=== PATIENT | male | born 1930 | race Caucasian/White ===

== ENCOUNTER → 2016-09-08 | Outpatient (CLI) | payer OTHER ==
[~2016-09-08] MED LIST: ACET325T96 PO; ALEN70TA2 PO; ARTI99.0 OPB; ASPCH81X PO; ATOR-24 PO; CLOP1TAB15 PO; CYAN10005 PO; DOCU-94 PO; IMDSR/30 PO; MELA3TAB PO; METO25TA3 PO; MYCO500T4 PO; NIAC500T11 PO; NITR-5 PO; NTRGSL/4 UT; OMEP10CA4 PO; PRED10TA PO; PRLSR20 PO; SACC250C3 PO; SERT50TA PO; SNM/25100 PO; SULF800T23 PO
[2016-09-08 09:17] LABS: BASO % 0.4 %; BASO ABS # 0.03 K/uL (0-0.2); COMPLETE YES; EOS % 0.1 %; HEMATOCRIT 40.8 % (42-52); IG% 0.7 %; LYMPH % 19.9 %; LYMPH ABS # 1.66 K/uL (1.2-3.4); MEAN CELL VOLUME 93.4 fL (80-100); MEAN CORPUSCULAR HEMOGLOBIN 30.9 pg (25-34); MEAN CORPUSCULAR HGB CONC 33.1 g/dl (32-36); MEAN PLATELET VOLUME 9.3 fL (7.4-10.4); MONO % 4.8 %; NEUT % 74.1 %; PLATELET COUNT 220 K/uL (130-400); RED BLOOD COUNT 4.37 M/uL (4.7-6.1); WHITE BLOOD COUNT 8.33 K/uL (4.8-10.8)
[2016-09-08 09:52] LABS: BLOOD UREA NITROGEN 18 mg/dl (7-18); BUN/CREATININE RATIO 21.1 (10-20); CARBON DIOXIDE 34 mmol/L (21-32); CHLORIDE 106 mmol/L (98-107); CREATININE 0.83 mg/dl (0.60-1.40); GLUCOSE 81 mg/dl (70-99); POTASSIUM 3.9 mmol/L (3.5-5.1); SODIUM 143 mmol/L (136-145)
== END ==
LOC: C.LABOUTLO 08:26
PROVIDERS: ATTEND Internal Medicine
DX: I11.9 Hypertensive heart disease without heart failure (principal); N28.9 Disorder of kidney and ureter, unspecified

== ENCOUNTER 2016-10-02 17:43 | Emergency (ER) | payer OTHER, BC ==
[~2016-10-02] VITALS: Ht 170.2 cm; Wt 68.0 kg
[2016-10-02 17:54] VITALS: TEMP 36.7; Ht 170.2 cm; Wt 68.0 kg
--- NOTE | 2016-10-02 18:28 | EMERGENCY ROOM VISIT NOTE ---
History Report prepared by Shantal: [place] Laura Under the Supervision of: Dr. Adi Block M.D. First contact with patient: 18:13 Chief Complaint: FALL Stated Complaint: FALL, SKIN TEAR, HIT HEAD History of Present Illness The patient is a 86 year old male who presents to the Emergency Room with complaints of an episode of a fall beginning just TOW BAR [employer]. The patient states that he has a walker and was walking around a table when the leg of his walker caught and he tripped. He reports that he hit the back of his head when he fell. He complains of left arm pain and a rash that he notes he is being treated with antibiotics after he was seen at [place]. The patient complains of left arm pain. He denies any LOC, headache, changes in vision, neck pain, chest pain, SOB, abdominal pain, and numbness or weakness. 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 He denies any changes in vision. Review of Systems See HPI for pertinent positives & negatives. A total of 10 systems reviewed and were otherwise negative. Past Medical & Surgical Medical Problems: (1) Macular degeneration Old medical records were reviewed. Nurse's notes were reviewed and I agree with. Family History No pertinent family history stated. Social History Smoking Status: Never Smoker Housing Status: half-way Occupation Status: retired Current/Historical Medications Scheduled Alendronate Sodium (Fosamax), 70 MG PO WK Aspirin (Aspirin Chewable), 81 MG PO DAILY Atorvastatin (Lipitor), 40 MG PO HS Clopidogrel (Plavix), 75 MG PO DAILY Cyanocobalamin (Vitamin B-12), 1,000 MCG PO DAILY Isosorbide Mononitrate (Isosorbide Mononitrate ER), 30 MG PO DAILY Levodopa/Carbidopa (Sinemet 25MG/100MG), 1 TAB PO Q8 Melatonin (Melatonin), 6 MG PO HS Metoprolol Succinate (Toprol Xl), 25 MG PO DAILY Mycophenolate Mofetil (Cellcept), 1,000 MG PO BID Niacin (Niacin), 500 MG PO DAILY Nitroglycerin (Nitrostat), 0.4 MG UT PRN Omeprazole (Prilosec), 20 MG PO DAILY Prednisone Tab (Prednisone), 10 MG PO DAILY Sertraline (Zoloft), 50 MG PO DAILY Scheduled PRN Acetaminophen Tab (Tylenol), 650 MG PO Q4 PRN for Pain or Fever Allergies Coded Allergies: No Known Allergies (Unverified , 10/02/16) Physical Exam Vital Signs Date Time Temp Pulse Resp B/P Pulse Ox O2 Delivery O2 Flow Rate FiO2 10/02/16 21:22 62 18 136/69 94 10/02/16 17:54 36.7 78 18 141/77 96 Room Air Physical Exam General: Well developed well nourished non ill appearing older male in no acute distress, breathing comfortably on room air. Normal speech. Alert and oriented x3. HEENT: Small area of swelling to the left occipital area. Pupils are equal round and reactive to light. Extraocular movements are intact. Oropharynx is pink with moist mucous membranes. No swelling of the mouth lips or tongue. Neck: Supple with a midline trachea. No meningeal signs or stiffness, no JVD or bruits. No Stridor. Chest: Clear to auscultation bilaterally. No wheezes or rhonchi. No increased work of breathing. Heart: regular rate and rhythm. Abdomen: Soft nontender, nondistended without rebound guarding or rigidity. Extremities: No cyanosis clubbing or edema. No calf tenderness or assymetry Spine/Back. Non tender to palpation. No CVA tenderness Skin: Good turgor. Chronic rash. Neurologic exam: Cranial nerves two through 12 are intact. Motor and sensation are intact and symmetrical throughout. Codorus Coma score 15. Medical Decision & Procedures ER Provider Diagnostic Interpretation: CT results as stated below per my review and radiologist interpretation: HEAD CT NONCONTRAST Findings: The paranasal sinuses and mastoid air cells are clear. The calvarium and skull base are intact. The ventricles and sulci are within normal limits. There is no mass, hematoma, midline shift, or acute infarct. Impression: No acute intracranial abnormality. Electronically signed by: Fidel Yuen M.D. 10/02/2016 7:09 PM Dictated Date/Time: 10/02/2016 7:[address] FINDINGS: No fractures. No subluxation. Prevertebral soft tissues and the C1-C2 interval are intact. No pneumothorax. Considerable degenerative change throughout the entire cervical region IMPRESSION: No fractures within the cervical spine. Considerable degenerative change. Electronically signed by: Fidel Yuen M.D. 10/02/2016 7:19 PM Dictated Date/Time: 10/02/2016 7:17 PM ED Course 1812: Past medical records reviewed. The patient was evaluated in room B6, and a complete history and physical examination were performed. 1928: Upon reevaluation, the patient is doing well. I discussed the results and treatment plan with the patient. He verbalized agreement of the treatment plan. The patient was discharged home. Medical Decision Differential Diagnosis includes concussion, intracranial hemorrhage, skull fracture, cervical spine injury. This patient comes in as described above. He suffered a mechanical fall and hit his head he appears to be is normal baseline. He is alert or 3 and answers all questions appropriately. He has no other acute complaints this was a mechanical fall. There is no syncopal, chest pain or weakness beforehand . He has no significant symptoms at present. I did get a CAT scan of his head and neck. He is not on any blood thinners. He was reassessed frequently. CAT scan of his head and neck were unremarkable he has no further complaints feels good and would like to go home. He will be discharged home. He was encouraged to return if: Worsening of symptoms, , any new problems or concerns. He should follow-up with his doctor on Tuesday for recheck. Impression Primary Impression: Concussion Scribe Attestation The scribe's documentation has been prepared under my direction and personally reviewed by me in its entirety. I confirm that the note above accurately reflects all work, treatment, procedures, and medical decision making performed by me. Departure Information Dispostion Home / Self-Care Referrals [facility] (PCP) Forms HOME CARE DOCUMENTATION FORM, IMPORTANT VISIT INFORMATION Patient Instructions My [facility] Additional Instructions Rest. Drink plenty of fluids. Be careful getting up and down. Return if: Worsening of symptoms, not acting like self, increasing pain, numbness weakness, any new problems or concerns. Follow-up with your doctor on Tuesday for recheck
--- NOTE | 2016-10-02 19:10 | DIAGNOSTIC IMAGING REPORT ---
HEAD CT NONCONTRAST CT DOSE: HISTORY: Trauma eval for trauma TECHNIQUE: Multiaxial CT images of the head were performed without the use of intravenous contrast. Comparison: None. Findings: The paranasal sinuses and mastoid air cells are clear. The calvarium and skull base are intact. The ventricles and sulci are within normal limits. There is no mass, hematoma, midline shift, or acute infarct. Impression: No acute intracranial abnormality. Electronically signed by: Fidel Yuen M.D. 10/02/2016 7:09 PM Dictated Date/Time: 10/02/2016 7:08 PM
[2016-10-02] MEDS ORDERED: OMEP10CA4 PO (19:15)
[2016-10-02] MEDS ORDERED: ATOR-24 PO (19:15)
[2016-10-02] MEDS ORDERED: CYAN10005 PO (19:15)
[2016-10-02] MEDS ORDERED: ASPCH81X PO (19:15)
[2016-10-02] MEDS ORDERED: MYCO500T4 PO (19:15)
[2016-10-02] MEDS ORDERED: ACET325T96 PO (19:15)
[2016-10-02] MEDS ORDERED: METO25TA3 PO (19:15)
[2016-10-02] MEDS ORDERED: MELA3TAB PO (19:15)
[2016-10-02] MEDS ORDERED: IMDSR/30 PO (19:15)
[2016-10-02] MEDS ORDERED: NTRGSL/4 UT (19:15)
[2016-10-02] MEDS ORDERED: ALEN70TA2 PO (19:15)
[2016-10-02] MEDS ORDERED: NIAC500T11 PO (19:15)
[2016-10-02] MEDS ORDERED: CLOP1TAB15 PO (19:15)
[2016-10-02] MEDS ORDERED: SNM/25100 PO (19:15)
[2016-10-02] MEDS ORDERED: SERT50TA PO (19:19)
[2016-10-02] MEDS ORDERED: PRED10TA PO (19:19)
[2016-10-02] MEDS ORDERED: PRLSR20 PO (19:19)
--- NOTE | 2016-10-02 19:20 | DIAGNOSTIC IMAGING REPORT ---
CERVICAL SPINE CT CT DOSE: 2252.00 mGy.cm HISTORY: Trauma eval for trauma TECHNIQUE: Multiaxial CT images of the cervical spine were performed and reformatted in the sagittal and coronal plane without the use of contrast. COMPARISON: None. FINDINGS: No fractures. No subluxation. Prevertebral soft tissues and the C1-C2 interval are intact. No pneumothorax. Considerable degenerative change throughout the entire cervical region IMPRESSION: No fractures within the cervical spine. Considerable degenerative change. Electronically signed by: Fidel Yuen M.D. 10/02/2016 7:19 PM Dictated Date/Time: 10/02/2016 7:17 PM
[2016-10-02 21:22] VITALS: BP 136/69; PULSE 62; O2SAT 94
[2016-10-26] MEDS ORDERED: NITR-5 PO (23:53)
[2016-10-26] MEDS ORDERED: SULF800T23 PO (23:56)
== END 2016-10-02 21:23 | disposition home or self-care (01) ==
LOC: EDBD 17:43 → C.EDB 17:46
DX: S06.0X0A Concussion without loss of consciousness, initial encounter (principal); W18.09XA Striking against other object with subsequent fall, initial encounter; H35.30 Unspecified macular degeneration; Z79.82 Long term (current) use of aspirin; Z79.01 Long term (current) use of anticoagulants; Z79.899 Other long term (current) drug therapy

== ENCOUNTER 2016-10-03 02:17 | Emergency (ER) | payer OTHER, BC ==
[~2016-10-03] VITALS: Ht 170.2 cm; Wt 79.4 kg
[~2016-10-03 02:17] MED LIST changes: -ARTI99.0 OPB; -DOCU-94 PO; -NITR-5 PO; -OMEP10CA4 PO; -SACC250C3 PO; -SULF800T23 PO
[2016-10-03 02:26] VITALS: TEMP 37.2; Ht 170.2 cm; Wt 79.4 kg
--- NOTE | 2016-10-03 03:24 | EMERGENCY ROOM VISIT NOTE ---
History Report prepared by Shantal: Lynnette Coburn Under the Supervision of: Dr. Regina Davison D.O. First contact with patient: 02:47 Chief Complaint: FALL Stated Complaint: FALL History of Present Illness The patient is an 86 year old male who presents to the Emergency Room with complaints of a sudden fall that occurred just prior to arrival. The patient notes that he fell from standing, injuring his elbows. He denies any loss of consciousness or hitting his head. Per nursing notes, the patient was discharged from the emergency department four hours prior to arrival. Nursing notes report that the patient was discharged back to [facility]'s Dementia Unit. The history is limited secondary to the patient's history of dementia. Source of History: patient, nursing staff History Limited By: dementia Onset: just prior to arrival Position: other (global) Quality: other (fall) Timing: other (sudden) Associated Symptoms: No LOC Review of Systems The history and ROS are limited secondary to dementia. Past Medical & Surgical Medical Problems: (1) Macular degeneration Family History Noncontributory secondary to age Social History Smoking Status: Never Smoker Marital Status: single Housing Status: [facility] Occupation Status: retired Current/Historical Medications Scheduled Alendronate Sodium (Fosamax), 70 MG PO WK Aspirin (Aspirin Chewable), 81 MG PO DAILY Atorvastatin (Lipitor), 40 MG PO HS Clopidogrel (Plavix), 75 MG PO DAILY Cyanocobalamin (Vitamin B-12), 1,000 MCG PO DAILY Isosorbide Mononitrate (Isosorbide Mononitrate ER), 30 MG PO DAILY Levodopa/Carbidopa (Sinemet 25MG/100MG), 1 TAB PO Q8 Melatonin (Melatonin), 6 MG PO HS Metoprolol Succinate (Toprol Xl), 25 MG PO DAILY Mycophenolate Mofetil (Cellcept), 1,000 MG PO BID Niacin (Niacin), 500 MG PO DAILY Nitroglycerin (Nitrostat), 0.4 MG UT PRN Omeprazole (Prilosec), 20 MG PO DAILY Prednisone Tab (Prednisone), 10 MG PO DAILY Sertraline (Zoloft), 50 MG PO DAILY Scheduled PRN Acetaminophen Tab (Tylenol), 650 MG PO Q4 PRN for Pain or Fever Allergies Coded Allergies: No Known Allergies (Unverified , 10/03/16) Physical Exam Vital Signs Date Time Temp Pulse Resp B/P Pulse Ox O2 Delivery O2 Flow Rate FiO2 10/03/16 03:45 79 19 141/70 95 Room Air 10/03/16 02:26 37.2 78 19 137/79 93 Room Air Physical Exam HEENT: Head - hematoma on left occiput. Pupils are equal, round, and reactive to light. Extraocular eye muscles are intact, and sclera are anicteric. Nose - moist nasal mucosa without discharge. Mouth - moist buccal mucosa. Oropharynx is nonerythematous and there is no tonsillar exudate or edema noted. Neck: Supple; no JVD, nuchal rigidity, cervical lymphadenopath. Heart: Regular rate and rhythm. There is a normal S1 and S2 with no murmurs, clicks, or gallops appreciated. Lungs: Clear to auscultation bilaterally with no wheezes, rales, or rhonchi. Abdomen: Soft, completely nontender, nondistended, with good bowel sounds. There are no palpable pulsatile masses or hepatosplenomegaly. There is no guarding, rigidity, or rebound noted. Extremities: No evidence of cyanosis, clubbing, or edema. There are easily palpable peripheral pulses. Skin: 2 skin tears on left elbow that are old, new skin tears to the left ventral forearm and right elbow. Abrasions to the knees. warm and dry with good turgor and no rashes. Medical Decision & Procedures ED Course 0318: Past medical records reviewed. The patient was evaluated in room A11B. A complete history and physical exam was performed. I discussed all the exam findings with him and I discussed the treatment plan. He verbalized complete understanding and agreement. He is ready to be transferred back to [facility]. Medical Decision The patient is an 86 year old male who presents to the ED with a sudden fall. Differential diagnosis includes extremity trauma, new head injury, medication overdose. The patient believes that some of his medications may be causing him to be increasingly weak and the reason for his falls. The patient was seen here couple of hours ago after a fall where he struck his head. CT scan of the brain and cervical spine was negative at that time. The patient had another fall just prior to coming in this time. He did have some new skin tears noted on his elbows and abrasion on his right knee. The patient has no other complaints of be discharged back. There is specific instructions for fall prevention. They will also need to reevaluate his medications. Impression Primary Impression: Fall from standing Scribe Attestation The scribe's documentation has been prepared under my direction and personally reviewed by me in its entirety. I confirm that the note above accurately reflects all work, treatment, procedures, and medical decision making performed by me. Departure Information Dispostion Home / Self-Care Referrals [facility] (PCP) Forms HOME CARE DOCUMENTATION FORM, IMPORTANT VISIT INFORMATION Patient Instructions My [facility] Additional Instructions Watch the patient closely to prevent falls. Keep wounds on the elbows and knees clean with soap and water. Cover with antibiotic ointment Problem Qualifiers Primary Impression: Fall from standing Encounter type: subsequent encounter Qualified Codes: W19.XXXD - Unspecified fall, subsequent encounter
[2016-10-03 03:45] VITALS: BP 141/70; PULSE 79; O2SAT 95
[2016-10-26] MEDS ORDERED: NITR-5 PO (23:53)
[2016-10-26] MEDS ORDERED: SULF800T23 PO (23:56)
== END 2016-10-03 04:30 | disposition home or self-care (01) ==
LOC: C.EDA 02:17 → EDBD 02:17 → C.EDA 04:30
DX: S51.011A Laceration without foreign body of right elbow, initial encounter (principal); S80.211A Abrasion, right knee, initial encounter; S80.212A Abrasion, left knee, initial encounter; W19.XXXA Unspecified fall, initial encounter; Y92.129 Unspecified place in nursing home as the place of occurrence of the external cause; F03.90 Unspecified dementia, unspecified severity, without behavioral disturbance, psychotic disturbance, mood disturbance, and anxiety; H35.30 Unspecified macular degeneration; Z79.82 Long term (current) use of aspirin; Z79.899 Other long term (current) drug therapy; Z79.01 Long term (current) use of anticoagulants

== ENCOUNTER → 2016-10-04 | Outpatient (CLI) | payer OTHER, BC ==
[~2016-10-04] MED LIST changes: +ARTI99.0 OPB; +DOCU-94 PO; +NITR-5 PO; +SACC250C3 PO; +SULF800T23 PO
[2016-10-04 18:48] LABS: URINE APPEARANCE CLEAR (CLEAR); URINE COLOR DK YELLOW; URINE NITRITE NEG (NEG); URINE SPECIFIC GRAVITY 1.033 (1.000-1.030); UROBILINOGEN NEG (NEG)
[2016-10-04 18:58] LABS: MANUAL MICROSCOPIC REQUIRED? NO; REVIEW REQ? NO; URINE BILIRUBIN NEG (NEG)
== END | disposition home or self-care (01) ==
LOC: C.LABOUTLO 17:07
PROVIDERS: ATTEND Internal Medicine
DX: Z01.89 Encounter for other specified special examinations (principal)

== ENCOUNTER 2016-10-08 17:37 | Inpatient (IN) | payer OTHER, BC ==
[~2016-10-08] VITALS: Ht 170.2 cm; Wt 81.5 kg
[~2016-10-08 17:37] MED LIST changes: -ARTI99.0 OPB; -DOCU-94 PO; -NITR-5 PO; -SACC250C3 PO; -SULF800T23 PO
--- NOTE | 2016-10-08 17:47 | EMERGENCY ROOM VISIT NOTE ---
History Report prepared by Shantal: [place] Laura Under the Supervision of: Dr. Ildefonso White M.D. First contact with patient: 17:38 Stated Complaint: FALL, LOWER BACK PAIN History of Present Illness The patient is a 86 year old male who presents to the Emergency Room with complaints of constant lower back pain beginning this morning. The patient states that he fell 2 times today before coming in to the ED. He reports that when he fell today he did hit his head and his falls worsened his lower back pain. The patient complains of multiple falls and abrasions. He denies any abdominal pain and headache. Source of History: patient Onset: this morning Position: back (lower) Timing: constant Modifying Factors (Worsening): other (falls) Associated Symptoms: No abdominal pain, No headache Note: The patient complains of multiple falls and abrasions. Review of Systems See HPI for pertinent positives & negatives. A total of 10 systems reviewed and were otherwise negative. Past Medical & Surgical Medical Problems: (1) Macular degeneration Family History Noncontributory secondary to age Social History Smoking Status: Never Smoker Marital Status: single Housing Status: longterm Occupation Status: retired Current/Historical Medications Scheduled Alendronate Sodium (Fosamax), 70 MG PO WK Aspirin (Aspirin Chewable), 81 MG PO QAM Atorvastatin (Lipitor), 40 MG PO HS Clopidogrel (Plavix), 75 MG PO QAM Cyanocobalamin (Vitamin B-12), 1,000 MCG PO QAM Isosorbide Mononitrate (Isosorbide Mononitrate ER), 30 MG PO QAM Levodopa/Carbidopa (Sinemet 25MG/100MG), 1 TAB PO Q8 Melatonin (Melatonin), 6 MG PO HS Metoprolol Succinate (Toprol Xl), 25 MG PO QAM Mycophenolate Mofetil (Cellcept), 1,000 MG PO BID Niacin (Niacin), 500 MG PO QAM Nitroglycerin (Nitrostat), 0.4 MG UT PRN Omeprazole (Prilosec), 20 MG PO QAM Prednisone Tab (Prednisone), 10 MG PO QAM Sertraline (Zoloft), 50 MG PO QAM Scheduled PRN Acetaminophen Tab (Tylenol), 650 MG PO Q4 PRN for Pain or Fever Artificial Tear Solution (Natural Balance Tears 70.01-0.3 %), 1 DROP OPB QID PRN for DRYNESS Allergies Coded Allergies: No Known Allergies (Unverified , 10/08/16) Physical Exam Vital Signs Date Time Temp Pulse Resp B/P Pulse Ox O2 Delivery O2 Flow Rate FiO2 10/08/16 20:59 74 20 112/60 97 Room Air 10/08/16 18:51 94 Room Air 10/08/16 18:49 70 20 138/72 84 142/87 10/08/16 17:41 36.7 72 20 139/78 95 Room Air Physical Exam GENERAL: Patient is a healthy-appearing well-nourished HEAD: Normocephalic atraumatic EYES: Ocular movements intact pupils equal and react to light OROPHARYNX mucous membranes are moist no exudates present no erythema or edema present NECK: Supple no nuchal rigidity CHEST: Good equal expansion LUNGS: Clear and equal to auscultation CARDIAC: Normal S1 and S2 ABDOMEN: Soft nontender no guarding BACK: No CVA tenderness EXTREMITIES: No pain upon palpation normal muscle strength in all groups no clubbing cyanosis or edema. Patient has multiple bruises to his bilateral legs, good ROM to right and left legs at the hips, knees, and ankles and is free from pain. NEURO: Patient is following commands is answering questions appropriately. Alert and oriented x3 Cranial Nerves 2-12 grossly intact Medical Decision & Procedures ER Provider Diagnostic Interpretation: Radiology results as stated below per my review and radiologist interpretation: CERVICAL SPINE CT FINDINGS: No fractures. Prevertebral soft tissues and the C1-C2 interval are intact. No pneumothorax. Advanced degenerative changes are again noted. IMPRESSION: No fractures within the cervical spine. Electronically signed by: Pedro Luis Merrill M.D. 10/08/2016 6:40 PM Dictated Date/Time: 10/08/2016 6:[address] NONCONTRAST Findings: The paranasal sinuses and mastoid air cells are clear. The calvarium and skull base are intact. There is no mass, hematoma, midline shift, acute infarct. White matter hypodensity is nonspecific but suggestive of microvascular ischemic change. The ventricles and sulci demonstrate mild age-related involutional changes. Impression: No significant change compared to the prior study. No acute intracranial abnormality. Electronically signed by: Pedro Luis Merrill M.D. 10/08/2016 6:37 PM Dictated Date/Time: 10/08/2016 6:[address] FINDINGS: No subluxation. Mild levoscoliosis. Mild to moderate disc space are at L4-L5. Endplate osteophytes seen throughout the majority of the lumbar spine. Moderate to severe facet degenerative changes within the lower lumbar spine. Age-indeterminate fracture through the left anterior L4-L5 osteophytes. There is mild paravertebral soft tissue swelling at this location. There is also gas at the expected fracture site. Vertebral body heights are maintained. IMPRESSION: 1. Age-indeterminate fracture at the left anterior L4-5 osteophytes. No fractures within the vertebral bodies or posterior elements. 2. Degenerative changes within the lower lumbar spine. Electronically signed by: Pedro Luis Merrill M.D. 10/08/2016 6:46 PM Dictated Date/Time: 10/08/2016 6:[address] FINDINGS: There is oblique fracture involving the anterior two thirds of the T7 vertebral body. This extends to the inferior endplate but does not extend to the posterior cortex. No retropulsion. The posterior elements appear intact. The alignment is maintained. There is mild to moderate disc space narrowing throughout the thoracic spine. There is flowing anterior osteophytes throughout the majority of the thoracic spine. The T7 fracture extends through the fused anterior osteophytes. No additional fractures identified. No significant central canal narrowing by CT technique. Trace left pleural effusion. IMPRESSION: Nondisplaced oblique fracture within the anterior two thirds of the T7 vertebral body. No subluxation. No retropulsion. Electronically signed by: Pedro Luis Merrill M.D. 10/08/2016 7:00 PM Dictated Date/Time: 10/08/2016 6:54 PM CHEST 1 VW FRONT-NOT PORTABLE FINDINGS: There are low lung volumes. Bibasilar linear densities. Trace bilateral pleural effusions. The heart is borderline enlarged. Tortuous thoracic aorta. Poststernotomy changes. No pneumothorax. Old, healed upper left rib fractures. No acute rib fractures identified. Mild central pulmonary vascular congestion without overt edema. IMPRESSION: 1. Mild central pulmonary vascular congestion without overt edema. 2. Trace bilateral pleural effusions. 3. Bibasilar linear densities favor subsegmental atelectasis. Electronically signed by: Pedro Luis Merrill M.D. 10/08/2016 8:14 PM Dictated Date/Time: 10/08/2016 8:13 PM PELVIS 2 VIEWS FINDINGS: There is no fracture or dislocation. Surgical clips within the pelvis. Mild osteoarthritis within the bilateral hips and sacroiliac joints. The sacrum appears intact. The bones are osteopenic. There appears to be a large bowel containing right inguinal hernia. IMPRESSION: 1. No fracture or dislocation within the pelvis or hips. 2. There appears to be a large bowel containing right inguinal hernia. Clinical correlation recommended. Electronically signed by: Pedro Luis Merrill M.D. 10/08/2016 8:11 PM Dictated Date/Time: 10/08/2016 8:10 PM Laboratory Results 10/08/16 18:28 Red Blood Count 4.37, Mean Corpuscular Volume 95.0, Mean Corpuscular Hemoglobin 30.2, Mean Corpuscular Hemoglobin Concent 31.8, Mean Platelet Volume 9.2, Neutrophils (%) (Auto) 83.7, Lymphocytes (%) (Auto) 8.9, Monocytes (%) (Auto) 6.5, Eosinophils (%) (Auto) 0.1, Basophils (%) (Auto) 0.1, Neutrophils # (Auto) 6.04, Lymphocytes # (Auto) 0.64, Monocytes # (Auto) 0.47, Eosinophils # (Auto) 0.01, Basophils # (Auto) 0.01 10/08/16 18:28 Test 10/08/16 18:28 10/08/16 18:55 White Blood Count 7.22 K/uL (4.8-10.8) Red Blood Count 4.37 M/uL (4.7-6.1) Hemoglobin 13.2 g/dL (14.0-18.0) Hematocrit 41.5 % (42-52) Mean Corpuscular Volume 95.0 fL (80-100) Mean Corpuscular Hemoglobin 30.2 pg (25-34) Mean Corpuscular Hemoglobin Concent 31.8 g/dl (32-36) Platelet Count 184 K/uL (130-400) Mean Platelet Volume 9.2 fL (7.4-10.4) Neutrophils (%) (Auto) 83.7 % Lymphocytes (%) (Auto) 8.9 % Monocytes (%) (Auto) 6.5 % Eosinophils (%) (Auto) 0.1 % Basophils (%) (Auto) 0.1 % Neutrophils # (Auto) 6.04 K/uL (1.4-6.5) Lymphocytes # (Auto) 0.64 K/uL (1.2-3.4) Monocytes # (Auto) 0.47 K/uL (0.11-0.59) Eosinophils # (Auto) 0.01 K/uL (0-0.5) Basophils # (Auto) 0.01 K/uL (0-0.2) RDW Standard Deviation 54.8 fL (36.4-46.3) RDW Coefficient of Variation 15.8 % (11.5-14.5) Immature Granulocyte % (Auto) 0.7 % Immature Granulocyte # (Auto) 0.05 K/uL (0.00-0.02) Anion Gap 6.0 mmol/L (3-11) Est Creatinine Clear Calc Drug Dose 64.5 ml/min Estimated GFR () 91.9 Estimated GFR (Non- 79.3 BUN/Creatinine Ratio 18.7 (10-20) Bedside Glucose 100 mg/dl (70-99) Calcium Level 8.1 mg/dl (8.5-10.1) Total Bilirubin 0.9 mg/dl (0.2-1) Direct Bilirubin 0.3 mg/dl (0-0.2) Aspartate Amino Transf (AST/SGOT) 11 U/L (15-37) Alanine Aminotransferase (ALT/SGPT) 14 U/L (12-78) Alkaline Phosphatase 82 U/L (45-117) Total Creatine Kinase 64 U/L (39-308) Creatine Kinase MB 2.0 ng/ml (0.5-3.6) Creatine Kinase MB Ratio 3.1 (0-3.0) Troponin I 0.041 ng/ml (0-0.045) Total Protein 6.0 gm/dl (6.4-8.2) Albumin 3.4 gm/dl (3.4-5.0) Thyroid Stimulating Hormone (TSH) 1.750 uIu/ml (0.300-4.500) Urine Color YELLOW Urine Appearance CLEAR (CLEAR) Urine pH 7.0 (4.5-7.5) Urine Specific [place] 1.018 (1.000-1.030) Urine Protein NEG (NEG) Urine Glucose (UA) NEG (NEG) Urine Ketones 2+ (NEG) Urine Occult Blood TRACE (NEG) Urine Nitrite NEG (NEG) Urine Bilirubin NEG (NEG) Urine Urobilinogen NEG (NEG) Urine Leukocyte Esterase NEG (NEG) Urine WBC (Auto) 0 /hpf (0-5) Urine RBC (Auto) 5-10 /hpf (0-4) Urine Hyaline Casts (Auto) 1-5 /lpf (0-5) Urine Epithelial Cells (Auto) 5-10 /lpf (0-5) Urine Bacteria (Auto) NEG (NEG) Labs reviewed by ED physician. Medications Administered Medications (Trade) Dose Ordered Sig/Renny Route Start Time Stop Time Status Last Admin Dose Admin Sodium Chloride (Nss 500ml) 500 ml @ 999 mls/hr Q31M STAT IV 10/08/16 18:14 10/08/16 18:44 DC 10/08/16 18:46 999 MLS/HR ECG Indication: other (fall) Rate (beats per minute): 68 Rhythm: sinus rhythm Findings: 1st degree AV block, RBBB, no acute ischemic change, no ectopy ED Course 1739: Past medical records reviewed. The patient was evaluated in room C3. A complete history and physical examination was performed. 1813: Sodium Chloride 500 ml @ 999 mls/hr IV. 2041: I discussed the patient's case with Dr. Ghotra, she has agreed to evaluate the patient for further management and care. 2050: Upon reexamination the patient is doing well. I discussed results and treatment plan with the patient. He verbalizes agreement and understanding. I spoke with Dr. Ghotra from the [facility]. The patient will be evaluated for further management. Medical Decision Differential diagnosis: Etiologies such as metabolic, infection, hypo/hyperglycemia, electrolyte abnormalities, cardiac sources, intracerebral event, toxicologic, neurologic, as well as others were entertained. This is an 86-year-old male who presents emergency department complaining of multiple falls. The patient has been here 3 times in the past week for falls. Today he is complaining of back pain. The patient does have fractures in his lumbar and thoracic spine. He was given normal saline bolus here in emergency department. He does not have any evidence of urinary tract infection does not have an elevation in his white blood count cell count. Because of the multiple falls I did get case management involved and due to insurance limitations the patient should be admitted to the hospital. I did discuss the case with the hospitalist service who agreed to admit the patient. Patient family were in agreement with the treatment plan. Consults Time Called: 2036 Consulting Physician: Dr. Brandin Carlos Returned Call: 2041 I discussed the patient's case with Dr. Ghotra, she has agreed to evaluate the patient for further management and care. Impression Primary Impression: Fall Additional Impression: Back fracture Scribe Attestation The scribe's documentation has been prepared under my direction and personally reviewed by me in its entirety. I confirm that the note above accurately reflects all work, treatment, procedures, and medical decision making performed by me. Departure Information Dispostion Being Evaluated By Hospitalist Referrals [facility] (PCP) Problem Qualifiers Primary Impression: Fall Encounter type: initial encounter Qualified Codes: W19.XXXA - Unspecified fall, initial encounter Additional Impression: Back fracture Encounter type: initial encounter Fracture of vertebra location: thoracic Thoracic vertebra fracture level: unspecified thoracic vertebra Fracture type : closed Fracture morphology: other fracture Qualified Codes: S22.008A - Other fracture of unspecified thoracic vertebra, initial encounter for closed fracture
[2016-10-08] MEDS ORDERED: SODIUM CHLORIDE 0.9% 500ML 500 ML IV STA (18:14)
--- NOTE | 2016-10-08 18:38 | DIAGNOSTIC IMAGING REPORT ---
HEAD CT NONCONTRAST CT DOSE: HISTORY: Pt c/o multiple falls TECHNIQUE: Multiaxial CT images of the head were performed without the use of intravenous contrast. Automated exposure control was utilized for this study. Comparison: Head CT 10/02/2016. Findings: The paranasal sinuses and mastoid air cells are clear. The calvarium and skull base are intact. There is no mass, hematoma, midline shift, acute infarct. White matter hypodensity is nonspecific but suggestive of microvascular ischemic change. The ventricles and sulci demonstrate mild age-related involutional changes. Impression: No significant change compared to the prior study. No acute intracranial abnormality. Electronically signed by: Pedro Luis Merrill M.D. 10/08/2016 6:37 PM Dictated Date/Time: 10/08/2016 6:35 PM
--- NOTE | 2016-10-08 18:42 | DIAGNOSTIC IMAGING REPORT ---
CERVICAL SPINE CT CT DOSE: HISTORY: Neck pain. Pt c/o multiple falls TECHNIQUE: Multiaxial CT images of the cervical spine were performed and reformatted in the sagittal and coronal plane without the use of contrast. COMPARISON: Cervical spine CT 10/02/2016. FINDINGS: No fractures. Prevertebral soft tissues and the C1-C2 interval are intact. No pneumothorax. Advanced degenerative changes are again noted. IMPRESSION: No fractures within the cervical spine. Electronically signed by: Pedro Luis Merrill M.D. 10/08/2016 6:40 PM Dictated Date/Time: 10/08/2016 6:37 PM
[2016-10-08] MEDS ORDERED: ARTI99.0 OPB (18:46)
[2016-10-08 18:47] LABS: BASO % 0.1 %; BASO ABS # 0.01 K/uL (0-0.2); COMPLETE YES; EOS % 0.1 %; HEMATOCRIT 41.5 % (42-52); IG% 0.7 %; LYMPH % 8.9 %; LYMPH ABS # 0.64 K/uL (1.2-3.4); MEAN CORPUSCULAR HEMOGLOBIN 30.2 pg (25-34); MEAN CORPUSCULAR HGB CONC 31.8 g/dl (32-36); MEAN PLATELET VOLUME 9.2 fL (7.4-10.4); MONO % 6.5 %; NEUT % 83.7 %; PLATELET COUNT 184 K/uL (130-400); RED BLOOD COUNT 4.37 M/uL (4.7-6.1); WHITE BLOOD COUNT 7.22 K/uL (4.8-10.8)
--- NOTE | 2016-10-08 18:47 | DIAGNOSTIC IMAGING REPORT ---
LUMBAR SPINE CT CT DOSE: 3205.09 mGy.cm HISTORY: Low back pain. Pt c/o multiple falls TECHNIQUE: Multiaxial CT images of the lumbar spine were performed and reformatted in the sagittal and coronal plane without the use of contrast. COMPARISON: None. FINDINGS: No subluxation. Mild levoscoliosis. Mild to moderate disc space are at L4-L5. Endplate osteophytes seen throughout the majority of the lumbar spine. Moderate to severe facet degenerative changes within the lower lumbar spine. Age-indeterminate fracture through the left anterior L4-L5 osteophytes. There is mild paravertebral soft tissue swelling at this location. There is also gas at the expected fracture site. Vertebral body heights are maintained. IMPRESSION: 1. Age-indeterminate fracture at the left anterior L4-5 osteophytes. No fractures within the vertebral bodies or posterior elements. 2. Degenerative changes within the lower lumbar spine. Electronically signed by: Pedro Luis Merrill M.D. 10/08/2016 6:46 PM Dictated Date/Time: 10/08/2016 6:40 PM
--- NOTE | 2016-10-08 19:02 | DIAGNOSTIC IMAGING REPORT ---
THORACIC SPINE CT CT DOSE: HISTORY: Back pain. Pt c/o multiple falls TECHNIQUE: Multiaxial CT images of the thoracic spine were performed and reformatted in the sagittal and coronal plane without the use of contrast. COMPARISON: None. FINDINGS: There is oblique fracture involving the anterior two thirds of the T7 vertebral body. This extends to the inferior endplate but does not extend to the posterior cortex. No retropulsion. The posterior elements appear intact. The alignment is maintained. There is mild to moderate disc space narrowing throughout the thoracic spine. There is flowing anterior osteophytes throughout the majority of the thoracic spine. The T7 fracture extends through the fused anterior osteophytes. No additional fractures identified. No significant central canal narrowing by CT technique. Trace left pleural effusion. IMPRESSION: Nondisplaced oblique fracture within the anterior two thirds of the T7 vertebral body. No subluxation. No retropulsion. Electronically signed by: Pedro Luis Merrill M.D. 10/08/2016 7:00 PM Dictated Date/Time: 10/08/2016 6:54 PM
[2016-10-08 19:04] LABS: BUN/CREATININE RATIO 18.7 (10-20); CALCIUM 8.1 mg/dl (8.5-10.1); CREATININE 0.84 mg/dl (0.60-1.40); POTASSIUM 4.1 mmol/L (3.5-5.1)
[2016-10-08 19:11] LABS: URINE APPEARANCE CLEAR (CLEAR); URINE BILIRUBIN NEG (NEG); URINE COLOR YELLOW; URINE NITRITE NEG (NEG); URINE SPECIFIC GRAVITY 1.018 (1.000-1.030); UROBILINOGEN NEG (NEG)
[2016-10-08 19:12] LABS: MANUAL MICROSCOPIC REQUIRED? NO; REVIEW REQ? NO
[2016-10-08 19:15] LABS: CKMB/CK RATIO 3.1 (0-3.0); THYROID STIMULATING HORMONE 1.75 uIu/ml (0.300-4.500)
--- NOTE | 2016-10-08 20:13 | DIAGNOSTIC IMAGING REPORT ---
PELVIS 2 VIEWS HISTORY: Pelvic pain. Pt c/o multiple falls COMPARISON: None. FINDINGS: There is no fracture or dislocation. Surgical clips within the pelvis. Mild osteoarthritis within the bilateral hips and sacroiliac joints. The sacrum appears intact. The bones are osteopenic. There appears to be a large bowel containing right inguinal hernia. IMPRESSION: 1. No fracture or dislocation within the pelvis or hips. 2. There appears to be a large bowel containing right inguinal hernia. Clinical correlation recommended. Electronically signed by: Pedro Luis Merrill M.D. 10/08/2016 8:11 PM Dictated Date/Time: 10/08/2016 8:10 PM
--- NOTE | 2016-10-08 20:16 | DIAGNOSTIC IMAGING REPORT ---
CHEST 1 VW FRONT-NOT PORTABLE HISTORY: Pt c/o multiple falls COMPARISON: None. FINDINGS: There are low lung volumes. Bibasilar linear densities. Trace bilateral pleural effusions. The heart is borderline enlarged. Tortuous thoracic aorta. Poststernotomy changes. No pneumothorax. Old, healed upper left rib fractures. No acute rib fractures identified. Mild central pulmonary vascular congestion without overt edema. IMPRESSION: 1. Mild central pulmonary vascular congestion without overt edema. 2. Trace bilateral pleural effusions. 3. Bibasilar linear densities favor subsegmental atelectasis. Electronically signed by: Pedro Luis Merrill M.D. 10/08/2016 8:14 PM Dictated Date/Time: 10/08/2016 8:13 PM
[2016-10-08] MEDS ORDERED: ALUMINUM/MAGNESIUM/SIMETH (MAALOX MAX) 30 ML UDC PO PRN (21:30)
[2016-10-08] MEDS ORDERED: ARTIFICIAL TEARS OP SOLN OPB PRN ×2 (21:30)
[2016-10-08] MEDS ORDERED: NITROGLYCERIN 0.4 MG SL PER TAB CHARGE UT PRN (21:30)
[2016-10-08] MEDS ORDERED: ACETAMINOPHEN 325 MG TAB PO PRN (21:30)
[2016-10-08] MEDS ORDERED: POLYETHYLENE (MIRALAX) 17 GM PACK PO PRN (21:30)
[2016-10-08] MEDS ORDERED: MAGNESIUM HYDROXIDE SUSP 30 ML UDC PO PRN (21:30)
[2016-10-08] MEDS ORDERED: OXYCODONE HCL IR 5 MG TAB (IMMEDIATE RELEASE) PO PRN (21:30)
[2016-10-08] MEDS ORDERED: ONDANSETRON INJ 2 MG/ML 2 ML VIAL IV PRN (21:30)
--- NOTE | 2016-10-08 22:11 | HISTORY & PHYSICAL EXAMINATION ---
DATE OF ADMISSION: 10/08/2016 CHIEF COMPLAINT: Status post fall and lumbar spine fracture. HISTORY OF PRESENT ILLNESS: This 86-year-old male with past medical history significant for muscle weakness, depression, hypertension, GERD, CAD with angina, hyperlipidemia, macular degeneration, glaucoma, prostate cancer, Parkinson disease, resident of predementia unit at [facility], was brought in because of multiple falls. Imaging studies showed T7, L4-L5 age-indeterminate fractures. The patient is alert and awake and oriented. Except for lower back pain, denies any other complaints. The patient denies any chest pain, no shortness of breath, no cough, no blurred vision, no nausea, no vomiting. Appetite is not that good. The patient has normal bowel movements. From the ER, social service tried to admit to [facility], but there was no bed availability, so we were called for admission. Currently hemodynamically stable. ALLERGIES: No known drug allergies. PAST MEDICAL HISTORY: As mentioned above. MEDICATIONS: The patient is on alendronate 70 mg p.o. weekly, aspirin 81 mg p.o. daily, atorvastatin 40 mg p.o. at bedtime, Sinemet 25/100 one p.o. q. 8 hours, Plavix 75 mg p.o. daily, Imdur 30 mg p.o. daily, melatonin 6 mg p.o. at bedtime, Toprol-XL 25 mg p.o. daily, CellCept 1000 mg p.o. b.i.d., niacin 500 mg p.o. daily, omeprazole 20 mg p.o. daily, prednisone 10 mg p.o. daily, Zoloft 50 mg p.o. daily, vitamin B12 1000 mcg p.o. daily, Tylenol 650 mg p.o. q. 4 hours p.r.n., Natural Balance tears both eyes 4 times a day as needed, Nitrostat 0.4 mg p.r.n. FAMILY HISTORY: Noncontributory. SOCIAL HISTORY: Not available at this time. REVIEW OF SYMPTOMS: As per HPI. Rest of review of systems was negative. PHYSICAL EXAMINATION: GENERAL: The patient is alert and awake and oriented x3, not in distress. VITAL SIGNS: Temperature 36.7, pulse 74, respiratory rate 20, blood pressure 112/60, oxygen 97% room air. HEENT: No pallor, no icterus. Pupils equal, round and reactive to light. NECK: No JVD, no neck masses, no carotid bruits. CARDIOVASCULAR: S1, S2 heard, regular rate and rhythm, no murmur, no gallop. RESPIRATORY: Clear to auscultation bilaterally. No wheezing, no crackles. ABDOMEN: Soft, bowel sounds present, nontender, no distention. CENTRAL NERVOUS SYSTEM: Alert and oriented x3. Nonfocal. EXTREMITIES: No edema, no erythema. LABORATORIES: WBC 7.2, hemoglobin 13.2, hematocrit 41.5, platelets 184. Sodium 146, potassium 4.1, chloride 107, bicarb 33, BUN 16, creatinine 0.8, serum glucose 100, total calcium 8.1, total bilirubin 0.9, direct bilirubin 0.3, AST 11, ALT 14, alkaline phosphatase 82. Troponin I 0.04. TSH 1.7. Thoracic spine CT, nondisplaced oblique fracture with an anterior two thirds of T7 vertebral body. No subluxation.no retropulsion. Pelvic x-ray, no fracture or dislocation of the pelvis or hip, large right inguinal hernia. Lumbar spine CT, age-indeterminate fracture of left anterior L4-L5 osteophytes. No fracture of the vertebral bodies or posterior elements. Degenerative changes of the lower spine. CT of the head, no acute intracranial abnormality seen. Chest x-ray, mild pulmonary vascular congestion without overt edema. Cervical spine CT, no fractures of the cervical spine. ASSESSMENT AND PLAN: This 86-year-old male presents with multiple falls and recently had L4-L5 fracture. 1. Multiple falls, ambulatory dysfunction. T7 and L4-L5 age-indeterminant fractures. Plan for rehab. No bed available at this time. We will do PT/OT while in the hospital, get orthopedics opinion. His falls could be related to his age and Parkinson's disease. Close monitor. 2. Parkinson. Continue Sinemet. 3. Coronary artery disease. Continue statin, aspirin, Plavix, Imdur and metoprolol. 4. History of hypertension. Continue Imdur and metoprolol. Monitor his blood pressure. 5. History of hyperlipidemia. Continue statin. 6. History of generalized weakness. Continue PT/OT. 7. The patient also has a history of prostate cancer. The patient is on CellCept. 8. DVT prophylaxis, SCDs and TEDs for now. Monitor on medical floor. PT/OT and social service to help with discharge planning. Level 1 full code as per records. MTDD
[2016-10-08 22:55] VITALS: BP 132/74; PULSE 62; TEMP 36.8; O2SAT 96
[2016-10-08 23:30] VITALS: BP 132/74; PULSE 62; TEMP 36.8; Ht 170.2 cm; Wt 81.5 kg
[2016-10-08] MEDS: CARBIDOPA/LEVODOPA 25/100MG TAB PO SCH (23:33)
[2016-10-09] VITALS (7 sets, daily range): BP systolic 103–135; BP diastolic 63–76; PULSE 64–87; TEMP 36.1–36.7; O2SAT 92–95
[2016-10-09] MEDS: CARBIDOPA/LEVODOPA 25/100MG TAB PO SCH ×3 (05:57→22:02)
[2016-10-09 06:42] LABS: BASO % 0.3 %; BASO ABS # 0.02 K/uL (0-0.2); COMPLETE YES; EOS % 0.3 %; HEMATOCRIT 42.1 % (42-52); IG% 0.4 %; LYMPH % 14.7 %; LYMPH ABS # 1.08 K/uL (1.2-3.4); MEAN CELL VOLUME 93.8 fL (80-100); MEAN CORPUSCULAR HEMOGLOBIN 30.7 pg (25-34); MEAN CORPUSCULAR HGB CONC 32.8 g/dl (32-36); MEAN PLATELET VOLUME 9.1 fL (7.4-10.4); MONO % 7.6 %; NEUT % 76.7 %; PLATELET COUNT 159 K/uL (130-400); RED BLOOD COUNT 4.49 M/uL (4.7-6.1); WHITE BLOOD COUNT 7.33 K/uL (4.8-10.8)
[2016-10-09 07:33] LABS: BUN/CREATININE RATIO 15.1 (10-20); CALCIUM 7.9 mg/dl (8.5-10.1); CREATININE 0.65 mg/dl (0.60-1.40); MAGNESIUM 2.3 mg/dl (1.8-2.4); POTASSIUM 3.2 mmol/L (3.5-5.1)
[2016-10-09] MEDS: ASPIRIN 81 MG CHEW PO SCH (09:16)
[2016-10-09] MEDS: NIACIN 500 MG TAB IMMEDIATE RELEASE PO SCH (09:17)
[2016-10-09] MEDS: CLOPIDOGREL BISULFATE 75 MG TAB PO SCH (09:17)
[2016-10-09] MEDS: SERTRALINE HCL 50 MG TAB PO SCH (09:17)
[2016-10-09] MEDS: MYCOPHENOLATE MOFETIL 250 MG CAP (CELLCEPT) PO SCH ×2 (09:17→20:49)
[2016-10-09] MEDS: METOPROLOL SUCC 25MG EXT REL TAB PO SCH (09:18)
[2016-10-09] MEDS: CYANOCOBALAMIN 500 MCG TAB (VIT B-12) PO SCH (09:18)
[2016-10-09] MEDS: ISOSORBIDE MONONITRATE 30 MG TABCR PO SCH (09:19)
[2016-10-09] MEDS: PANTOprazole SOD 40 MG TAB PO SCH (09:19)
--- NOTE | 2016-10-09 14:38 | ORTHOPEDIC CONSULTATION ---
DATE OF CONSULTATION: 10/09/2016 CHIEF COMPLAINT: Back pain. HISTORY: This is an 86-year-old male who presents to the Emergency Room with a history of falls, imaging showing a T7 fracture. He does have a history of Parkinson's disease and predementia. At this point, he does note he has pain in the interscapular region and sometimes in lumbar spine. He is unable to answer any question as to where he is or how he felt. PHYSICAL EXAMINATION: He again is not oriented to place. He is cooperative with my questioning, however. Did not appear to be in acute distress. He has reasonable strength to testing lower extremities. Upon inspection of the thoracolumbar spine; he has no abnormal skin markings, some tenderness to percussion over the mid thoracic region. Imaging does demonstrate significant multilevel spondylosis consistent with DISH. Old fracture in the lumbar region, but an acute fracture of T7. It involves the middle two-thirds of the T7 vertebral body. While it does not extend into the posterior elements, I have significant concern regarding instability. With his diffuse spondylosis and DISH patterns, he would transmit tremendous amount of forces across this fracture site and it could propagate into further instability. Subsequently, I would want to watch him very closely. Unfortunately due to his cognitive abilities, I did not feel a brace would be reasonable or tolerated. Surgery of course would be the last option. At this point, I would recommend that we follow him closely with weekly x-rays, possibly even a follow up CAT scan in the next 2 weeks to ensure this is not propagated. ASSESSMENT: T7 compression fracture. PLAN: Again, we will require at least weekly x-rays with follow up CAT scans pending his films. Otherwise, he is cleared for [facility] when a bed is available.
[2016-10-09] MEDS ORDERED: POTASSIUM CHLORIDE 10 MEQ TABCR PO ONE (17:30)
--- NOTE | 2016-10-09 17:38 | Progress Note ---
Internal Med Progress Note Date of Service: October 09, 2016. Provider Documentation: SUBJECTIVE: Patient is seen and examined at bedside. States having some back pain. Poor historian. Denies any chest pain, SOB, dizziness. OBJECTIVE: Vital Signs-as noted below Physical Exam: Vitals signs as noted above General Appearance:Moderately built and nourished, no apparent distress Head: normocephalic, Atraumatic Eyes: normal inspection, EOMI, PERRL Neck: supple, Trachea midline Respiratory/Chest: Normal breath sounds, CTA Cardiovascular: S1, S2, No murmur Abdomen/GI:Soft, Non tender, Bowel sounds present Extremities/Musculoskelatal:normal inspection, no edema Neurologic/Psych:grossly no focal neurological deficits Skin: normal color, warm Lab data as noted below. ASSESSMENT & PLAN: Patient is an 86 yr old male presents with multiple falls and recent L4-L5 fracture Multiple falls, Ambulatory dysfunction: H/O Parkinsonism On Chronic Prednisone CT spine:Non displaced T 7 compression fracture Also had L4-L5 age-indeterminant fractures: Likely old Appreciate Orthopedic Input Needs weekly x-rays and follow up CAT scan in 2 weeks Conservative management PT/OT Needs rehab placement Not an ideal candidate for surgery Hypokalemia: Replace potassium Monitor H/O Parkinson: Continue Sinemet CAD: No acute issues Continue Aspirin, Plavix, Imdur, statins, BB Hypertension: Continue home meds Hyperlipidemia: Continue statin H/O Prostate Cancer Continue CellCept ? Dementia: Currently not on meds DVT Px: Heparin SQ Code Status: Full Code DISPOSITION: Plan to discharge to SNF when bed available Vital Signs: Date Time Temp Pulse Resp B/P Pulse Ox O2 Delivery O2 Flow Rate FiO2 10/09/16 15:29 36.6 72 16 114/71 92 Room Air 10/09/16 08:10 92 Room Air 10/09/16 07:20 36.7 64 16 135/76 92 Room Air 10/09/16 05:51 73 103/66 95 Room Air 10/09/16 05:48 87 127/67 95 Room Air 10/09/16 05:43 36.1 65 16 117/63 93 Room Air 10/09/16 01:19 Room Air 10/08/16 23:30 36.8 62 16 132/74 Room Air 10/08/16 22:55 36.8 62 16 132/74 96 Room Air 10/08/16 21:50 71 20 130/71 94 Room Air 10/08/16 20:59 74 20 112/60 97 Room Air Lab Results: Results Past 24 Hours Test 10/09/16 06:27 Range/Units White Blood Count 7.33 4.8-10.8 K/uL Red Blood Count 4.49 4.7-6.1 M/uL Hemoglobin 13.8 14.0-18.0 g/dL Hematocrit 42.1 42-52 % Mean Corpuscular Volume 93.8 80-100 fL Mean Corpuscular Hemoglobin 30.7 25-34 pg Mean Corpuscular Hemoglobin Concent 32.8 32-36 g/dl Platelet Count 159 130-400 K/uL Mean Platelet Volume 9.1 7.4-10.4 fL Neutrophils (%) (Auto) 76.7 % Lymphocytes (%) (Auto) 14.7 % Monocytes (%) (Auto) 7.6 % Eosinophils (%) (Auto) 0.3 % Basophils (%) (Auto) 0.3 % Neutrophils # (Auto) 5.62 1.4-6.5 K/uL Lymphocytes # (Auto) 1.08 1.2-3.4 K/uL Monocytes # (Auto) 0.56 0.11-0.59 K/uL Eosinophils # (Auto) 0.02 0-0.5 K/uL Basophils # (Auto) 0.02 0-0.2 K/uL RDW Standard Deviation 53.3 36.4-46.3 fL RDW Coefficient of Variation 15.5 11.5-14.5 % Immature Granulocyte % (Auto) 0.4 % Immature Granulocyte # (Auto) 0.03 0.00-0.02 K/uL Sodium Level 145 136-145 mmol/L Potassium Level 3.2 3.5-5.1 mmol/L Chloride Level 107 98-107 mmol/L Carbon Dioxide Level 33 21-32 mmol/L Anion Gap 5.0 3-11 mmol/L Blood Urea Nitrogen 10 7-18 mg/dl Creatinine 0.65 0.60-1.40 mg/dl Est Creatinine Clear Calc Drug Dose 83.4 ml/min Estimated GFR () 102.1 Estimated GFR (Non- 88.1 BUN/Creatinine Ratio 15.1 10-20 Random Glucose 84 70-99 mg/dl Calcium Level 7.9 8.5-10.1 mg/dl Magnesium Level 2.3 1.8-2.4 mg/dl
[2016-10-09 20:32] LABS: INR 1.1 (0.9-1.1); PROTHROMBIN TIME (PATIENT) 11.3 SECONDS (9.0-12.0)
[2016-10-09] MEDS: ATORVASTATIN 20 MG TAB PO SCH (20:49)
[2016-10-09] MEDS ORDERED: NON-FORMULARY MEDICATION (Melatonin 6 MG) PO SCH (21:00)
[2016-10-09] MEDS: HEPARIN SOD 5000 UNIT/0.5 ML CARP SQ SCH (21:59)
[2016-10-10] VITALS (8 sets, daily range): BP systolic 78–146; BP diastolic 48–112; PULSE 64–74; TEMP 36.6–36.9; O2SAT 92–93
[2016-10-10] MEDS: CARBIDOPA/LEVODOPA 25/100MG TAB PO SCH ×3 (05:53→21:53)
[2016-10-10] MEDS: HEPARIN SOD 5000 UNIT/0.5 ML CARP SQ SCH ×3 (05:55→21:53)
[2016-10-10 06:53] LABS: BASO % 0.2 %; BASO ABS # 0.02 K/uL (0-0.2); COMPLETE YES; EOS % 0.5 %; HEMATOCRIT 42.7 % (42-52); IG% 0.5 %; LYMPH % 12.8 %; LYMPH ABS # 1.12 K/uL (1.2-3.4); MEAN CELL VOLUME 94.1 fL (80-100); MEAN CORPUSCULAR HEMOGLOBIN 30.8 pg (25-34); MEAN CORPUSCULAR HGB CONC 32.8 g/dl (32-36); MEAN PLATELET VOLUME 9.2 fL (7.4-10.4); MONO % 7.3 %; NEUT % 78.7 %; PLATELET COUNT 165 K/uL (130-400); RED BLOOD COUNT 4.54 M/uL (4.7-6.1); WHITE BLOOD COUNT 8.72 K/uL (4.8-10.8)
[2016-10-10 07:31] LABS: BUN/CREATININE RATIO 15.3 (10-20); CALCIUM 8.3 mg/dl (8.5-10.1); CREATININE 0.69 mg/dl (0.60-1.40); MAGNESIUM 2.4 mg/dl (1.8-2.4); POTASSIUM 3.4 mmol/L (3.5-5.1)
[2016-10-10] MEDS: NIACIN 500 MG TAB IMMEDIATE RELEASE PO SCH (08:46)
[2016-10-10] MEDS: CLOPIDOGREL BISULFATE 75 MG TAB PO SCH (08:47)
[2016-10-10] MEDS: ISOSORBIDE MONONITRATE 30 MG TABCR PO SCH (08:47)
[2016-10-10] MEDS: CYANOCOBALAMIN 500 MCG TAB (VIT B-12) PO SCH (08:47)
[2016-10-10] MEDS: PANTOprazole SOD 40 MG TAB PO SCH (08:48)
[2016-10-10] MEDS: METOPROLOL SUCC 25MG EXT REL TAB PO SCH (08:48)
[2016-10-10] MEDS: SERTRALINE HCL 50 MG TAB PO SCH (08:49)
[2016-10-10] MEDS: MYCOPHENOLATE MOFETIL 250 MG CAP (CELLCEPT) PO SCH ×2 (08:49→20:51)
[2016-10-10] MEDS: ASPIRIN 81 MG CHEW PO SCH (09:08)
[2016-10-10] MEDS ORDERED: NURSING VERBAL MED ORDER ONE (15:15)
[2016-10-10] MEDS ORDERED: POTASSIUM CHLORIDE 10 MEQ TABCR PO ONE (16:00)
--- NOTE | 2016-10-10 16:00 | Progress Note ---
Internal Med Progress Note Date of Service: October 10, 2016. Provider Documentation: SUBJECTIVE: seen and examined at bedside. History not reliable. Denies any chest pain, SOB, back pain. Offers no complaints. Complained of dizziness per staff. OBJECTIVE: Vital Signs-as noted below Physical Exam: Vitals signs as noted above General Appearance:Moderately built and nourished, no apparent distress Head: normocephalic, Atraumatic Eyes: normal inspection, EOMI, PERRL Neck: supple, Trachea midline Respiratory/Chest: Normal breath sounds, CTA Cardiovascular: S1, S2, No murmur Abdomen/GI:Soft, Non tender, Bowel sounds present Extremities/Musculoskelatal:normal inspection, no edema Neurologic/Psych:grossly no focal neurological deficits Skin: normal color, warm Lab data as noted below. ASSESSMENT & PLAN: Patient is an 86 yr old male presents with multiple falls and recent L4-L5 fracture Multiple falls, Ambulatory dysfunction: Orthostatic Hypotension: H/O Parkinsonism On Chronic Prednisone CT spine:Non displaced T 7 compression fracture Also had L4-L5 age-indeterminant fractures: Likely old Appreciate Orthopedic Input Needs weekly x-rays and follow up CAT scan in 2 weeks Conservative management PT/OT Needs rehab placement Not an ideal candidate for surgery Continue IV fluids Hypokalemia: Replace potassium Monitor H/O Parkinson: Continue Sinemet CAD: No acute issues Continue Aspirin, Plavix, Imdur, statins, BB Hypertension: Continue home meds Hyperlipidemia: Continue statin H/O Prostate Cancer Continue CellCept ? Dementia: Currently not on meds DVT Px: Heparin SQ Code Status: Full Code DISPOSITION: Plan to discharge to SNF tomorrow if stable Vital Signs: Date Time Temp Pulse Resp B/P Pulse Ox O2 Delivery O2 Flow Rate FiO2 10/10/16 15:02 78/58 10/10/16 15:01 84/52 10/10/16 13:48 74 91/58 10/10/16 13:48 74 146/112 10/10/16 08:50 93 Room Air 10/10/16 07:20 36.9 67 18 138/83 93 Room Air 10/09/16 23:49 Room Air 10/09/16 23:15 36.3 66 16 119/66 92 Room Air Lab Results: Results Past 24 Hours Test 10/09/16 20:16 10/10/16 06:15 Range/Units Prothrombin Time 11.3 9.0-12.0 SECONDS Prothromb Time International Ratio 1.1 0.9-1.1 White Blood Count 8.72 4.8-10.8 K/uL Red Blood Count 4.54 4.7-6.1 M/uL Hemoglobin 14.0 14.0-18.0 g/dL Hematocrit 42.7 42-52 % Mean Corpuscular Volume 94.1 80-100 fL Mean Corpuscular Hemoglobin 30.8 25-34 pg Mean Corpuscular Hemoglobin Concent 32.8 32-36 g/dl Platelet Count 165 130-400 K/uL Mean Platelet Volume 9.2 7.4-10.4 fL Neutrophils (%) (Auto) 78.7 % Lymphocytes (%) (Auto) 12.8 % Monocytes (%) (Auto) 7.3 % Eosinophils (%) (Auto) 0.5 % Basophils (%) (Auto) 0.2 % Neutrophils # (Auto) 6.86 1.4-6.5 K/uL Lymphocytes # (Auto) 1.12 1.2-3.4 K/uL Monocytes # (Auto) 0.64 0.11-0.59 K/uL Eosinophils # (Auto) 0.04 0-0.5 K/uL Basophils # (Auto) 0.02 0-0.2 K/uL RDW Standard Deviation 53.8 36.4-46.3 fL RDW Coefficient of Variation 15.6 11.5-14.5 % Immature Granulocyte % (Auto) 0.5 % Immature Granulocyte # (Auto) 0.04 0.00-0.02 K/uL Sodium Level 143 136-145 mmol/L Potassium Level 3.4 3.5-5.1 mmol/L Chloride Level 105 98-107 mmol/L Carbon Dioxide Level 33 21-32 mmol/L Anion Gap 5.0 3-11 mmol/L Blood Urea Nitrogen 11 7-18 mg/dl Creatinine 0.69 0.60-1.40 mg/dl Est Creatinine Clear Calc Drug Dose 78.6 ml/min Estimated GFR () 99.6 Estimated GFR (Non- 86.0 BUN/Creatinine Ratio 15.3 10-20 Random Glucose 85 70-99 mg/dl Calcium Level 8.3 8.5-10.1 mg/dl Magnesium Level 2.4 1.8-2.4 mg/dl
[2016-10-10] MEDS: SODIUM CHLORIDE 0.9% 1000ML 1,000 ML IV SCH (16:10)
[2016-10-10] MEDS: ATORVASTATIN 20 MG TAB PO SCH (20:51)
[2016-10-11] MEDS: SODIUM CHLORIDE 0.9% 1000ML 1,000 ML IV SCH ×2 (01:20→11:39)
[2016-10-11] MEDS: CARBIDOPA/LEVODOPA 25/100MG TAB PO SCH ×2 (05:43→13:26)
[2016-10-11] MEDS: HEPARIN SOD 5000 UNIT/0.5 ML CARP SQ SCH ×2 (05:44→13:26)
[2016-10-11 07:27] LABS: BASO % 0.3 %; BASO ABS # 0.02 K/uL (0-0.2); COMPLETE YES; EOS % 0.8 %; HEMATOCRIT 39.7 % (42-52); IG% 0.6 %; LYMPH % 18.1 %; LYMPH ABS # 1.15 K/uL (1.2-3.4); MEAN CORPUSCULAR HEMOGLOBIN 31.6 pg (25-34); MEAN CORPUSCULAR HGB CONC 33.2 g/dl (32-36); MEAN PLATELET VOLUME 9.3 fL (7.4-10.4); MONO % 6.8 %; NEUT % 73.4 %; PLATELET COUNT 149 K/uL (130-400); RED BLOOD COUNT 4.18 M/uL (4.7-6.1); WHITE BLOOD COUNT 6.36 K/uL (4.8-10.8)
[2016-10-11 07:38] VITALS: BP 126/71; PULSE 62; TEMP 36.6; O2SAT 95
[2016-10-11 07:50] LABS: BUN/CREATININE RATIO 19.7 (10-20); CALCIUM 7.6 mg/dl (8.5-10.1); CREATININE 0.59 mg/dl (0.60-1.40); MAGNESIUM 2.2 mg/dl (1.8-2.4); POTASSIUM 3.6 mmol/L (3.5-5.1)
[2016-10-11] MEDS: MYCOPHENOLATE MOFETIL 250 MG CAP (CELLCEPT) PO SCH (08:08)
[2016-10-11] MEDS: CLOPIDOGREL BISULFATE 75 MG TAB PO SCH (08:08)
[2016-10-11] MEDS: METOPROLOL SUCC 25MG EXT REL TAB PO SCH (08:09)
[2016-10-11] MEDS: SERTRALINE HCL 50 MG TAB PO SCH (08:09)
[2016-10-11] MEDS: CYANOCOBALAMIN 500 MCG TAB (VIT B-12) PO SCH (08:09)
[2016-10-11] MEDS: NIACIN 500 MG TAB IMMEDIATE RELEASE PO SCH (08:09)
[2016-10-11] MEDS: PANTOprazole SOD 40 MG TAB PO SCH (08:09)
[2016-10-11] MEDS: ISOSORBIDE MONONITRATE 30 MG TABCR PO SCH (08:10)
[2016-10-11] MEDS: ASPIRIN 81 MG CHEW PO SCH (08:13)
[2016-10-11 10:03] VITALS: BP_SYST 77; BP_SYST 83; BP_SYST 99; BP_DIAS 52; BP_DIAS 55
[2016-10-11 10:28] VITALS: BP 100/53
--- NOTE | 2016-10-11 11:49 | Clinical Documentation Query ---
CLINICAL DOCUMENTATION QUERY 86 year old male with hx of chronic prednisone therapy who presents to the Emergency Room with complaints of constant lower back pain s/p falls. In your clinical opinion is this patient being managed for: ( X ) Likely compression fracture of T7 vertebrae due to underlying Osteoporosis. ( ) Other explanation of clinical findings (Please Explain) ( ) Unable to determine (Please Define) ( ) Need to Discuss ( ) Not Agree The medical record reflects the following clinical findings, treatment, and risk factors. Clinical Indicators: Hypocalcemia 7.6, unknown time of injury. Treatment: orthopedic consult, seeking placement in [facility], Oxycodone Risk Factors: Age, chronic prednisone therapy, Please clarify and document your clinical opinion in the progress notes and discharge summary. Terms such as "probable", "suspected", "likely", "questionable", "possible", or "still to be ruled out" are acceptable. IF IN AGREEMENT, YOU MUST DOCUMENT ABOVE DIAGNOSTIC STATEMENT IN DAILY PROGRESS NOTES AND DISCHARGE SUMMARY. This document is not part of the patient's record. Thank You, Kimo Sargent, KATY [phone]
--- NOTE | 2016-10-11 13:12 | Progress Note ---
Internal Med Progress Note Date of Service: October 11, 2016. Provider Documentation: SUBJECTIVE: seen and examined at bedside. Denies any chest pain, SOB, back pain, dizziness. Offers no complaints. OBJECTIVE: Vital Signs-as noted below Physical Exam: Vitals signs as noted above General Appearance:Moderately built and nourished, no apparent distress Head: normocephalic, Atraumatic Eyes: normal inspection, EOMI, PERRL Neck: supple, Trachea midline Respiratory/Chest: Normal breath sounds, CTA Cardiovascular: S1, S2, No murmur Abdomen/GI:Soft, Non tender, Bowel sounds present Extremities/Musculoskelatal:normal inspection, no edema Neurologic/Psych:grossly no focal neurological deficits Skin: normal color, warm Lab data as noted below. ASSESSMENT & PLAN: Patient is an 86 yr old male presents with multiple falls and recent L4-L5 fracture Multiple falls, Ambulatory dysfunction: Orthostatic Hypotension: H/O Parkinsonism On Chronic Prednisone CT spine:Non displaced T 7 compression fracture Also had L4-L5 age-indeterminant fractures: Likely old Appreciate Orthopedic Input Needs weekly x-rays and follow up CAT scan in 2 weeks Conservative management PT/OT Needs rehab placement Not an ideal candidate for surgery Continue IV fluids Hypokalemia: Monitor Resolved H/O Parkinson: Continue Sinemet CAD: No acute issues Continue Aspirin, Plavix, Imdur, statins, BB Hypertension: Continue home meds Hyperlipidemia: Continue statin H/O Prostate Cancer Continue CellCept ? Dementia: Currently not on meds DVT Px: Heparin SQ Code Status: Full Code DISPOSITION: Plan to discharge to [facility] Updated on 10/11/16 Follow up with your Primary care physician in 1 week Follow up with Orthopedic Surgery as needed based on your Spine X ray changes. Get T-spine X ray on 10/15/16 for close monitoring of T7 compression fracture Needs Weekly T-spine X ray and CT Spine in 10 days Advised to use Teds for orthostatic hypotension Vital Signs: Date Time Temp Pulse Resp B/P Pulse Ox O2 Delivery O2 Flow Rate FiO2 10/11/16 14:08 36.6 62 16 95 Room Air 10/11/16 13:23 93/58 10/11/16 10:28 100/53 10/11/16 10:03 99/55 77/55 83/52 10/11/16 07:50 Room Air 10/11/16 07:38 36.6 62 16 126/71 95 Room Air 10/10/16 23:45 36.7 64 16 102/48 92 Room Air 10/10/16 19:30 Room Air 10/10/16 16:00 93 Room Air 10/10/16 15:40 36.6 74 16 110/66 93 Room Air Lab Results: Results Past 24 Hours Test 10/11/16 07:00 Range/Units White Blood Count 6.36 4.8-10.8 K/uL Red Blood Count 4.18 4.7-6.1 M/uL Hemoglobin 13.2 14.0-18.0 g/dL Hematocrit 39.7 42-52 % Mean Corpuscular Volume 95.0 80-100 fL Mean Corpuscular Hemoglobin 31.6 25-34 pg Mean Corpuscular Hemoglobin Concent 33.2 32-36 g/dl Platelet Count 149 130-400 K/uL Mean Platelet Volume 9.3 7.4-10.4 fL Neutrophils (%) (Auto) 73.4 % Lymphocytes (%) (Auto) 18.1 % Monocytes (%) (Auto) 6.8 % Eosinophils (%) (Auto) 0.8 % Basophils (%) (Auto) 0.3 % Neutrophils # (Auto) 4.67 1.4-6.5 K/uL Lymphocytes # (Auto) 1.15 1.2-3.4 K/uL Monocytes # (Auto) 0.43 0.11-0.59 K/uL Eosinophils # (Auto) 0.05 0-0.5 K/uL Basophils # (Auto) 0.02 0-0.2 K/uL RDW Standard Deviation 54.7 36.4-46.3 fL RDW Coefficient of Variation 15.8 11.5-14.5 % Immature Granulocyte % (Auto) 0.6 % Immature Granulocyte # (Auto) 0.04 0.00-0.02 K/uL Sodium Level 142 136-145 mmol/L Potassium Level 3.6 3.5-5.1 mmol/L Chloride Level 108 98-107 mmol/L Carbon Dioxide Level 30 21-32 mmol/L Anion Gap 4.0 3-11 mmol/L Blood Urea Nitrogen 12 7-18 mg/dl Creatinine 0.59 0.60-1.40 mg/dl Est Creatinine Clear Calc Drug Dose 91.9 ml/min Estimated GFR () 106.3 Estimated GFR (Non- 91.7 BUN/Creatinine Ratio 19.7 10-20 Random Glucose 88 70-99 mg/dl Calcium Level 7.6 8.5-10.1 mg/dl Magnesium Level 2.2 1.8-2.4 mg/dl
[2016-10-11 13:23] VITALS: BP 93/58
--- NOTE | 2016-10-11 13:41 | Discharge Summary ---
Discharge Summary Date of Service October 11, 2016. Discharge Summary Admission Date: October 08, 2016 at 21:25 Discharge Date: October 11, 2016 Discharge Disposition: senior living facility Principal Diagnosis: Fall, T7 compression fracture, Orthostatic Hypotension Procedures: CT C-spine: Nondisplaced oblique fracture within the anterior two thirds of the T7 vertebral body. No subluxation. No retropulsion Pelvic X ray: 1. No fracture or dislocation within the pelvis or hips. 2. There appears to be a large bowel containing right inguinal hernia. Clinical correlation recommended. CT L-spine: 1. Age-indeterminate fracture at the left anterior L4-5 osteophytes. No fractures within the vertebral bodies or posterior elements. 2. Degenerative changes within the lower lumbar spine. CT head: No significant change compared to the prior study. No acute intracranial abnormality. CT C-spine: No fractures within the cervical spine. Consultations: Orthopedic Surgery Pending Studies/Follow-Up: Follow up with your Primary care physician in 1 week Follow up with Orthopedic Surgery as needed based on your Spine X ray changes. Get T-spine X ray on 10/15/16 for close monitoring of T7 compression fracture Needs Weekly T-spine X ray and CT Spine in 10 days Advised to use Teds for orthostatic hypotension and liberalize salt in diet Medication Reconciliation Continued Medications: Acetaminophen Tab (Tylenol) 325 Mg Tab 650 MG PO Q4 PRN for Pain or Fever Alendronate Sodium (Fosamax) 70 Mg Tab 70 MG PO WK TUESDAY* Artificial Tear Solution (Natural Balance Tears 70.01-0.3 %) 1 [place] 1 DROP OPB QID PRN for DRYNESS Aspirin (Aspirin Chewable) 81 Mg Chew 81 MG PO QAM Atorvastatin (Lipitor) 40 Mg Tab 40 MG PO HS Clopidogrel (Plavix) 75 Mg Tab 75 MG PO QAM Cyanocobalamin (Vitamin B-12) 1,000 Mcg Tab 1000 MCG PO QAM Isosorbide Mononitrate (Isosorbide Mononitrate ER) 30 Mg Tabcr 30 MG PO QAM Levodopa/Carbidopa (Sinemet 25MG/100MG) 1 Ea Tab 1 TAB PO Q8 Melatonin (Melatonin) 3 Mg Tab 6 MG PO HS Metoprolol Succinate (Toprol Xl) 25 Mg Tabcr 25 MG PO QAM Mycophenolate Mofetil (Cellcept) 500 Mg Tab 1000 MG PO BID Niacin (Niacin) 500 Mg Tab 500 MG PO QAM Nitroglycerin (Nitrostat) 0.4 Mg Tab 0.4 MG UT PRN Omeprazole (Prilosec) 20 Mg Capcr 20 MG PO QAM Prednisone Tab (Prednisone) 10 Mg Tab 10 MG PO QAM Sertraline (Zoloft) 50 Mg Tab 50 MG PO QAM Admission Information HPI (per Admitting provider): CHIEF COMPLAINT: Status post fall and lumbar spine fracture. HISTORY OF PRESENT ILLNESS: This 86-year-old male with past medical history significant for muscle weakness, depression, hypertension, GERD, CAD with angina, hyperlipidemia, macular degeneration, glaucoma, prostate cancer, Parkinson disease, resident of predementia unit at [facility], was brought in because of multiple falls. Imaging studies showed T7, L4-L5 age-indeterminate fractures. The patient is alert and awake and oriented. Except for lower back pain, denies any other complaints. The patient denies any chest pain, no shortness of breath, no cough, no blurred vision, no nausea, no vomiting. Appetite is not that good. The patient has normal bowel movements. From the ER, social service tried to admit to [facility], but there was no bed availability, so we were called for admission. Currently hemodynamically stable. Physical Exam (per Admitting): PHYSICAL EXAMINATION: GENERAL: The patient is alert and awake and oriented x3, not in distress. VITAL SIGNS: Temperature 36.7, pulse 74, respiratory rate 20, blood pressure 112/60, oxygen 97% room air. HEENT: No pallor, no icterus. Pupils equal, round and reactive to light. NECK: No JVD, no neck masses, no carotid bruits. CARDIOVASCULAR: S1, S2 heard, regular rate and rhythm, no murmur, no gallop. RESPIRATORY: Clear to auscultation bilaterally. No wheezing, no crackles. ABDOMEN: Soft, bowel sounds present, nontender, no distention. CENTRAL NERVOUS SYSTEM: Alert and oriented x3. Nonfocal. EXTREMITIES: No edema, no erythema. Hospital Course Patient is an 86 yr old male presents with multiple falls and recent L4-L5 fracture Multiple falls, Ambulatory dysfunction: Orthostatic Hypotension: H/O Parkinsonism On Chronic Prednisone CT spine:Non displaced T 7 compression fracture Also had L4-L5 age-indeterminant fractures: Likely old Appreciate Orthopedic Input Needs weekly x-rays and follow up CAT scan in 2 weeks Conservative management PT/OT Needs rehab placement Not an ideal candidate for surgery Continue IV fluids Hypokalemia: Monitor Resolved H/O Parkinson: Continue Sinemet CAD: No acute issues Continue Aspirin, Plavix, Imdur, statins, BB Hypertension: Continue home meds Hyperlipidemia: Continue statin H/O Prostate Cancer Continue CellCept ? Dementia: Currently not on meds DVT Px: Heparin SQ Code Status: Full Code DISPOSITION: Plan to discharge to [facility] Follow up with your Primary care physician in 1 week Follow up with Orthopedic Surgery as needed based on your Spine X ray changes. Get T-spine X ray on 10/15/16 for close monitoring of T7 compression fracture Needs Weekly T-spine X ray and CT Spine in 10 days Advised to use Teds for orthostatic hypotension Total time spent on discharge = 35 minutes This includes examination of the patient, discharge planning, medication reconciliation, and communication with other providers. Discharge Instructions Discharge Instructions Date of Service October 11, 2016. Admission Reason for Admission: Back Fracture, Fall Discharge Discharge Diagnosis / Problem: Fall, T7 compression fracture, Orthostatic Hypotension Discharge Goals Goal(s): Decrease discomfort, Improve function Activity Recommendations Activity Limitations: resume your previous activity Exercise/Sports Limitations: as tolerated . Instructions / Follow-Up Instructions / Follow-Up Follow up with your Primary care physician in 1 week Follow up with Orthopedic Surgery as needed based on your Spine X ray changes. Get T-spine X ray on 10/15/16 for close monitoring of T7 compression fracture Needs Weekly T-spine X ray and CT Spine in 10 days Advised to use Teds for orthostatic hypotension and liberalize salt in diet Current Hospital Diet Patient's current hospital diet: AHA Diet (Heart Healthy) Discharge Diet Recommended Diet: AHA Diet (Heart Healthy) Pending Studies Studies pending at discharge: no Medical Emergencies . Who to Call and When: Medical Emergencies: If at any time you feel your situation is an emergency, please call 911 immediately. . Non-Emergent Contact Non-Emergency issues call your: Primary Care Provider, Surgeon Call Non-Emergent contact if: you have a fever, your pain is not controlled, your pain is worsening, your pain is unusual for you, you have any medication questions . . "Provider Documentation" section prepared by Wild Kim. . VTE Core Measure Inpt VTE Proph given/why not?: Unfractionated heparin SQ
[2016-10-11 15:25] VITALS: BP 107/57; PULSE 69; TEMP 36.6; O2SAT 92
--- NOTE | 2016-10-13 07:16 | EDITING REQUIRED CODING QUERY ---
CODING QUERY To promote full compliance with coding requirements relating to patient care, provider participation is requested in all cases of youth ministry director uncertainty. Please assist us with the question(s) below: Coding Question(s): Patient admitted with back pain- status post fall. Studies show T7 fracture and L4-L5 indeterminate fractures & multilevel spondylosis / DISH. Please document, if known or suspected the etiology of the T7 fracture. Thank you! Chang Nino, [facility]. Physician's Response(s): T7 fracture likely secondary to fall Principal Diagnosis: "_that condition established after study, to be chiefly responsible for occasioning the admission of the patient to the hospital for care." Co-Existing Principal Diagnosis: "_when two or more diagnoses equally meet the criteria for principal diagnosis as determined by the circumstances of admission, diagnostic work up, and/or therapy provided, and the Alphabetic Index, Tabular List, or another coding guideline does not provide sequencing direction, any one of the diagnoses may be sequenced first." "When the physician has documented what appears to be a current diagnosis in the body of the record, but has not included the diagnosis in the final diagnostic statement, the physician should be asked whether the diagnosis should be added." (Source Coding [facility] 2 QTR90. p3-4)
[2016-10-26] MEDS ORDERED: NITR-5 PO (23:53)
[2016-10-26] MEDS ORDERED: SULF800T23 PO (23:56)
== END 2016-10-11 21:15 | DRG 552 ==
LOC: ENRESERVDT → ENRESERVTM → EDBD 17:37 → C.EDC 17:38 → C.MSN 21:25
PROVIDERS: ADMIT Internal Medicine; ATTEND Internal Medicine
DX: S22.068A Other fracture of T7-T8 thoracic vertebra, initial encounter for closed fracture (principal); H35.30 Unspecified macular degeneration; F32.9 Major depressive disorder, single episode, unspecified; I25.10 Atherosclerotic heart disease of native coronary artery without angina pectoris; E78.5 Hyperlipidemia, unspecified; G20 Parkinson's disease; I10 Essential (primary) hypertension; I95.1 Orthostatic hypotension; M85.88 Other specified disorders of bone density and structure, other site; E87.6 Hypokalemia; M47.9 Spondylosis, unspecified; Z79.52 Long term (current) use of systemic steroids; X58.XXXA Exposure to other specified factors, initial encounter; Y92.129 Unspecified place in nursing home as the place of occurrence of the external cause; W19.XXXA Unspecified fall, initial encounter; Z85.46 Personal history of malignant neoplasm of prostate

== ENCOUNTER → 2016-10-15 | Outpatient (CLI) | payer OTHER, BC ==
[~2016-10-15] MED LIST changes: +ARTI99.0 OPB; +DOCU-94 PO; +NITR-5 PO; +SACC250C3 PO; +SULF800T23 PO
--- NOTE | 2016-10-15 16:32 | DIAGNOSTIC IMAGING REPORT ---
THORACIC SPINE 3 VIEWS HISTORY: Pain MID BACK PAIN COMPARISON: None. FINDINGS: Considerable degenerative change throughout the entire thoracic region. Degenerative disc changes throughout. No evidence for compression deformity. Degenerative change posterior elements. IMPRESSION: Considerable degenerative change throughout the entire thoracic region. No acute abnormality. Electronically signed by: Fidel Yuen M.D. 10/15/2016 4:31 PM Dictated Date/Time: 10/15/2016 4:30 PM
--- NOTE | 2016-11-05 17:21 | CODING QUERY NO DIAGNOSIS ---
TREATMENT RENDERED WITHOUT A DIAGNOSIS To promote full compliance with coding requirements relating to patient care, physician participation is requested in all cases of batch room technician uncertainty. Please assist us with providing a diagnosis/symptom for the test(s) below: A diagnosis/symptom was not documented on your Order. A valid diagnosis/symptom is required to bill all insurances. Please remember that we are unable to code a diagnosis of rule out, probable, possible, questionable, or suspected. Tests that require a diagnosis: * THORACIC SPINE 3 VIEWS ROUTINE DIAGNOSIS: * THORACIC SPINE 2-VIEW DIAGNOSIS: Provider Signature: Date: Thank you Dorina Rose Capptain Information Management Once completed, please kindly fax back to [phone] For questions please call [phone]
== END | disposition home or self-care (01) ==
LOC: C.RAD 16:01
PROVIDERS: ATTEND Physical Medicine & Rehabilitation
DX: S22.069A Unspecified fracture of T7-T8 vertebra, initial encounter for closed fracture (principal); X58.XXXA Exposure to other specified factors, initial encounter

== ENCOUNTER 2016-10-29 23:28 | Emergency (ER) | payer OTHER, BC ==
[~2016-10-29] VITALS: Ht 170.2 cm; Wt 76.3 kg
[2016-10-29 23:28] VITALS: TEMP 37; Ht 170.2 cm; Wt 76.3 kg
[~2016-10-29 23:28] MED LIST changes: -DOCU-94 PO; -SACC250C3 PO
[2016-10-29] MEDS ORDERED: DOCU-94 PO (23:51)
[2016-10-29] MEDS ORDERED: SACC250C3 PO (23:55)
--- NOTE | 2016-10-30 | EMERGENCY ROOM VISIT NOTE ---
History Report prepared by Shantal: Steve Vivar Under the Supervision of: Dr. Timmy Mckinney D.O. First contact with patient: 23:48 Chief Complaint: FALL Stated Complaint: FALL History of Present Illness The patient is an 86 year old male who presents to the Emergency Room following a fall that occurred shortly prior to arrival. Per assisted living staff at [facility] the patient fell and impacted his head on a metal cabinet. The patient has no other complaints at this time. Source of History: patient, correction notes Onset: [place] [employer] Position: head Quality: other (Falling episode) Associated Symptoms: No LOC Note: No other complaints. Review of Systems See HPI for pertinent positives and negatives. A total of ten systems were reviewed and were otherwise negative. Past Medical & Surgical Medical Problems: (1) Macular degeneration Family History Noncontributory secondary to age Social History Smoking Status: Never Smoker Marital Status: single Housing Status: correction Occupation Status: retired Current/Historical Medications Scheduled Alendronate Sodium (Fosamax), 70 MG PO WK Aspirin (Aspirin Chewable), 81 MG PO QAM Atorvastatin (Lipitor), 40 MG PO HS Clopidogrel (Plavix), 75 MG PO QAM Cyanocobalamin (Vitamin B-12), 1,000 MCG PO QAM Docusate Sodium (Colace), 100 MG PO BID Isosorbide Mononitrate (Isosorbide Mononitrate ER), 30 MG PO QAM Levodopa/Carbidopa (Sinemet 25MG/100MG), 1 TAB PO Q8 Melatonin (Melatonin), 6 MG PO HS Metoprolol Succinate (Toprol Xl), 25 MG PO QAM Mycophenolate Mofetil (Cellcept), 1,000 MG PO Q12 Niacin (Niacin), 500 MG PO QAM Nitrofurantoin Monohyd Macrocr (Macrobid), 100 MG PO Q12 Prednisone Tab (Prednisone), 10 MG PO QAM Saccharomyces Boulardii (Florastor), 250 MG PO BIDM Sertraline (Zoloft), 50 MG PO QAM Sulfa/Trimethoprim (Bactrim Ds 800MG/160MG), 1 TAB PO BID Scheduled PRN Acetaminophen Tab (Tylenol), 650 MG PO Q4 PRN for Pain or Fever Artificial Tear Solution (Natural Balance Tears 70.01-0.3 %), 1 DROP OPB QID PRN for DRYNESS Nitroglycerin (Nitrostat), 0.4 MG UT UD PRN for Chest Pain Allergies Coded Allergies: No Known Allergies (Unverified , 10/29/16) Physical Exam Vital Signs Date Time Temp Pulse Resp B/P (MAP) Pulse Ox O2 Delivery O2 Flow Rate FiO2 10/29/16 23:28 37.0 66 20 122/66 96 Room Air Physical Exam GENERAL: Awake, alert, well-appearing, in no distress. No signs of trauma HENT: Normocephalic, atraumatic. Oropharynx unremarkable. No signs of trauma. EYES: Normal conjunctiva. Sclera non-icteric. NECK: Supple. No nuchal rigidity. FROM. No JVD. RESPIRATORY: Clear to auscultation. CARDIAC: Regular rate, normal rhythm. Extremities warm and well perfused. Pulses equal. ABDOMEN: Soft, non-distended. No tenderness to palpation. No rebound or guarding. No masses. RECTAL: Deferred. MUSCULOSKELETAL: Chest examination reveals no tenderness. The back is symmetrical on inspection without obvious abnormality. There is no CVA tenderness to palpation. No joint edema. LOWER EXTREMITIES: Calves are equal size bilaterally and non-tender. No edema. No discoloration. NEURO: Normal sensorium. No sensory or motor deficits noted. GCS of 15. SKIN: No rash or jaundice noted. Medical Decision & Procedures ED Course 2348: The patient was evaluated in room C9. A complete history and physical exam was performed. 2359: After discussion at bedside the patient is ready to be discharged back to [facility]. Medical Decision Medication Reconciliation: I attest that I have personally reviewed the patient' s current medication list. Blood pressure screening: Patient was found to have normal blood pressure on screening and does not require follow-up. Differential diagnosis include; Fall, contusion, sprain, and strain. Patient on my examination has no evidence of trauma. He is alert GCS of 15 nonfocal he is interactive with me and my scribe. Patient will be sent back to the correction for monitoring. Impression Primary Impression: Fall with no injury Scribe Attestation The scribe's documentation has been prepared under my direction and personally reviewed by me in its entirety. I confirm that the note above accurately reflects all work, treatment, procedures, and medical decision making performed by me. Departure Information Dispostion Home / Self-Care Referrals [place] (PCP) Patient Instructions ED Mechanical Fall, My [facility]
[2016-10-30 00:45] VITALS: BP 112/64; PULSE 58; O2SAT 96
== END 2016-10-30 00:45 | disposition home or self-care (01) ==
LOC: EDBD 23:28 → C.EDC 23:31
DX: S09.90XA Unspecified injury of head, initial encounter (principal); W19.XXXA Unspecified fall, initial encounter; Y92.129 Unspecified place in nursing home as the place of occurrence of the external cause

== ENCOUNTER → 2017-06-16 | Outpatient (CLI) | payer OTHER, BC ==
[~2017-06-16] MED LIST changes: +DOCU-94 PO; -PRLSR20 PO; +SACC250C3 PO
== END | disposition home or self-care (01) ==
LOC: C.LABOUTLO 08:35
PROVIDERS: ATTEND Urology
DX: C61 Malignant neoplasm of prostate (principal)

== ENCOUNTER 2017-07-12 07:52 | Observation (INO) | payer OTHER ==
--- NOTE | 2017-07-01 15:33 | PAT Medication Instructions ---
Service Date Jul 01, 2017. Current Home Medication List Acetaminophen Tab (Tylenol), 650 MG PO Q4 PRN for Pain or Fever Alendronate Sodium (Fosamax), 70 MG PO WK Artificial Tear Solution (Natural Balance Tears 70.01-0.3 %), 1 DROP OPB QID PRN for DRYNESS Aspirin (Aspirin Chewable), 81 MG PO QAM Atorvastatin (Lipitor), 40 MG PO HS Clopidogrel (Plavix), 75 MG PO QAM Cyanocobalamin (Vitamin B-12), 1,000 MCG PO QAM Isosorbide Mononitrate (Isosorbide Mononitrate ER), 30 MG PO QAM Levodopa/Carbidopa (Sinemet 25MG/100MG), 1 TAB PO Q8 Melatonin (Melatonin), 6 MG PO HS Metoprolol Succinate (Toprol Xl), 12.5 MG PO QAM Mycophenolate Mofetil (Cellcept), 1,000 MG PO Q12 Niacin (Niacin), 500 MG PO QAM Nitroglycerin (Nitrostat), 0.4 MG UT UD PRN for Chest Pain Omeprazole (Prilosec), 20 MG PO QAM Prednisone Tab (Prednisone), 10 MG PO QAM Saccharomyces Boulardii (Florastor), 1 CAP PEG BID Sertraline (Zoloft), 50 MG PO QAM Medication Instructions For Your Scheduled Surgery - Check with surgeon (Dr. Hogan) and medicare interviewer for instructions: Clopidogrel (Plavix), 75 MG PO QAM Aspirin (Aspirin Chewable), 81 MG PO QAM - Continue as directed: Alendronate Sodium (Fosamax), 70 MG PO WK - Hold the following medications the morning of surgery: Cyanocobalamin (Vitamin B-12), 1,000 MCG PO QAM Mycophenolate Mofetil (Cellcept), 1,000 MG PO Q12 Niacin (Niacin), 500 MG PO QAM Saccharomyces Boulardii (Florastor), 1 CAP PEG BID - Take the following medications the morning of surgery with a sip of water: Sertraline (Zoloft), 50 MG PO QAM Prednisone Tab (Prednisone), 10 MG PO QAM. Omeprazole (Prilosec), 20 MG PO QAM Nitroglycerin (Nitrostat), 0.4 MG UT UD PRN for Chest Pain (if needed) Metoprolol Succinate (Toprol Xl), 12.5 MG PO QAM Levodopa/Carbidopa (Sinemet 25MG/100MG), 1 TAB PO Q8 Isosorbide Mononitrate (Isosorbide Mononitrate ER), 30 MG PO QAM Artificial Tear Solution (Natural Balance Tears 70.01-0.3 %), 1 DROP OPB QID PRN for DRYNESS Acetaminophen Tab (Tylenol), 650 MG PO Q4 PRN for Pain or Fever (okay to take up to 4 hours prior to surgery if needed) - Take the following medications as scheduled the night before surgery: Saccharomyces Boulardii (Florastor), 1 CAP PEG BID Nitroglycerin (Nitrostat), 0.4 MG UT UD PRN for Chest Pain (if needed) Mycophenolate Mofetil (Cellcept), 1,000 MG PO Q12 Melatonin (Melatonin), 6 MG PO HS Levodopa/Carbidopa (Sinemet 25MG/100MG), 1 TAB PO Q8 Atorvastatin (Lipitor), 40 MG PO HS Artificial Tear Solution (Natural Balance Tears 70.01-0.3 %), 1 DROP OPB QID PRN for DRYNESS (if needed) Acetaminophen Tab (Tylenol), 650 MG PO Q4 PRN for Pain or Fever (if needed) If you have any questions please call us at [phone] or [phone] or [phone]
[2017-07-01 16:04] LABS: BASO % 0.1 %; BASO ABS # 0.01 K/uL (0-0.2); EOS % 0.1 %; EOS ABS # 0.01 K/uL (0-0.5); HEMOGLOBIN 14.3 g/dL (14.0-18.0); IG# 0.04 K/uL (0.00-0.02); LYMPH % 11.9 %; LYMPH ABS # 0.99 K/uL (1.2-3.4); MEAN CELL VOLUME 94.2 fL (80-100); MEAN CORPUSCULAR HEMOGLOBIN 30.6 pg (25-34); MEAN CORPUSCULAR HGB CONC 32.5 g/dl (32-36); MEAN PLATELET VOLUME 9.4 fL (7.4-10.4); MONO % 4.3 %; MONO ABS # 0.36 K/uL (0.11-0.59); NEUT % 83.1 %; NEUT ABS # 6.92 K/uL (1.4-6.5); PLATELET COUNT 130 K/uL (130-400); RED CELL DISTRIBUTION WIDTH CV 14.5 % (11.5-14.5); RED CELL DISTRIBUTION WIDTH SD 49.7 fL (36.4-46.3); WHITE BLOOD COUNT 8.33 K/uL (4.8-10.8)
--- NOTE | 2017-07-01 16:08 | DIAGNOSTIC IMAGING REPORT ---
CHEST 2 VIEWS ROUTINE CLINICAL HISTORY: 86 years-old Male presenting with preoperative assessment. TECHNIQUE: PA and lateral views of the chest were obtained. COMPARISON: 10/08/2016. FINDINGS: Median sternotomy wires and mediastinal surgical clips noted with breakage of the most inferior wire, unchanged. Atherosclerosis and tortuosity of the thoracic aorta. Cardiac silhouette mildly enlarged, unchanged. Mildly low lung volumes on the right with persistent blunting of the right costophrenic angle, which could indicate pleural fluid or pleural thickening. Bandlike opacities at the left lung base persists. Trace left pleural effusion. No pneumothorax. Degenerative changes of the thoracic spine. Upper abdomen normal. IMPRESSION: 1. Mild cardiomegaly. No margaret pulmonary edema. 2. Left basilar atelectasis or scarring, unchanged. 3. Trace left pleural effusion and possible trace right pleural effusion versus pleural thickening. Electronically signed by: Enrique Werner M.D. 07/01/2017 4:07 PM Dictated Date/Time: 07/01/2017 4:05 PM
[2017-07-01 16:36] LABS: CALCIUM 8.1 mg/dl (8.5-10.1); CREATININE 0.94 mg/dl (0.60-1.40)
[~2017-07-12] VITALS: Ht 170.2 cm; Wt 88.5 kg
[2017-07-12] VITALS (7 sets, daily range): BP systolic 122–152; BP diastolic 62–81; PULSE 80–91; TEMP 36.4–37; O2SAT 92–100; Ht 170.2 cm; Wt 88.5 kg
[~2017-07-12 07:52] MED LIST changes: +ACET-1693 PO; -ACET325T96 PO; -DOCU-94 PO; +LACTATED RINGER'S 1000ML 1,000 ML IV SCH; -METO25TA3 PO; +METO25TA4 PO; -NITR-5 PO; +PRLSR20 PO; +SACC250C3 PEG; -SACC250C3 PO; -SULF800T23 PO
[2017-07-12] MEDS ORDERED: PROPOFOL IV EMULSION 10 MG/ML 20 ML VIAL IV ONE (08:38)
[2017-07-12] MEDS ORDERED: GLYCOPYRROLATE INJ 0.2 MG/ML VIAL ONE ×2 (08:38→11:39)
[2017-07-12] MEDS ORDERED: NEOSTIGMINE METHYLSULFATE 5 MG/5 ML SYR ONE (08:38)
[2017-07-12] MEDS ORDERED: LIDOCAINE HCL 2% 2 ML VIAL (20MG/ML) ONE (08:38)
[2017-07-12] MEDS ORDERED: ONDANSETRON INJ 2 MG/ML 2 ML VIAL ONE (08:38)
[2017-07-12] MEDS ORDERED: FENTANYL CITRATE INJ 50 MCG/1 ML 2 ML VIAL ONE ×2 (08:38→10:13)
[2017-07-12] MEDS ORDERED: ROCURONIUM BROMIDE 10 MG/ML 5 ML VIAL IV ONE (08:38)
[2017-07-12] MEDS ORDERED: DEXAMETHASONE SOD INJ 4 MG/ML VIAL ONE (08:38)
[2017-07-12] MEDS ORDERED: HYDROmorphone INJ 0.5 MG/0.5 ML SYR IV PRN (08:45)
[2017-07-12] MEDS ORDERED: PHENYLEPHRINE 100MCG/ML 5ML SYR IV PRN (08:45)
[2017-07-12] MEDS ORDERED: EpHEDrine SULFATE INJ 50 MG/ML AMP IV PRN (08:45)
[2017-07-12] MEDS ORDERED: ATROPINE SULFATE 0.1 MG/ML 5ML SYR IV PRN (08:45)
[2017-07-12] MEDS ORDERED: LABETALOL HCL IV 5 MG/ML 20ML IV PRN (08:45)
[2017-07-12] MEDS ORDERED: ONDANSETRON INJ 2 MG/ML 2 ML VIAL IV PRN ×2 (08:45→11:45)
[2017-07-12] MEDS ORDERED: FENTANYL CITRATE INJ 50 MCG/1 ML 2 ML VIAL IV PRN (08:45)
[2017-07-12] MEDS ORDERED: BUPIVACAINE 0.5 % 5 MG/1 ML MPF 30ML VIAL ONE (09:02)
[2017-07-12] MEDS ORDERED: BACITRACIN 50000 UNIT VIAL ONE (09:02)
--- NOTE | 2017-07-12 09:07 | History & Physical Bridge Note ---
H&P Re-Evaluation Bridge Note: I have examined the patient, reviewed the History & Physical and in the interval since the performance of the History & Physical I have noted the following changes of clinical significance: No changes noted pt marked family member at bedside all questions answered
[2017-07-12] MEDS ORDERED: CEFAZOLIN SOD 1 GM VIAL ONE (09:51)
[2017-07-12] MEDS ORDERED: HYDROCORTISONE SOD SUCCINATE 100 MG/2 ML VIAL ONE (09:52)
--- NOTE | 2017-07-12 11:38 | [facility] Post Operative Brief Note ---
Immediate Operative Summary Operative Date Jul 12, 2017. Pre-Operative Diagnosis Right Scrotal Hernia and Umbilical Hernia Post-Operative Diagnosis Right Scrotal Hernia and Umbilical Hernia both incarcerated Procedure(s) Performed open repair right ind hernia with marlex mesh tension free and open repair inc umbilical hernia with marlex mesh on lay Surgeon Dr. Hogan Job Press Feeder Surgeon(s) TIA Becerril Estimated Blood Loss 50cc Findings Consistent with Post-Op Diagnosis Specimens Culture--Urine (catheter)--for routine culture and sensitivity--sent to lab at 0955 A. Hernia Sac (Right Scrotal) Anesthesia Type General
[2017-07-12] MEDS ORDERED: LACTATED RINGER'S 1000ML 1,000 ML IV SCH (11:43)
[2017-07-12] MEDS ORDERED: ARTIFICIAL TEARS OP SOLN OPB PRN (11:45)
[2017-07-12] MEDS ORDERED: MoRPHine SULFATE 2 MG/ML CARP IV PRN (11:45)
[2017-07-12] MEDS ORDERED: NITROGLYCERIN 0.4 MG SL PER TAB CHARGE UT PRN (11:45)
[2017-07-12] MEDS ORDERED: OXYCODONE/ACETAMINOPHEN 5-325 TAB PO PRN (11:45)
[2017-07-12] MEDS ORDERED: PHENYLEPHRINE 100MCG/ML 5ML SYR ONE (12:04)
--- NOTE | 2017-07-12 12:53 | Anesthesiology Progress Note ---
Anesthesia Post Op Note Date & Time Jul 12, 2017 at 12:53 Vital Signs Pain Intensity: 0 Vital Signs Past 12 Hours Date Time Temp Pulse Resp B/P (MAP) Pulse Ox O2 Delivery O2 Flow Rate FiO2 07/12/17 12:35 36.4 67 16 136/67 96 Nasal Cannula 2 07/12/17 12:25 83 16 135/67 97 Nasal Cannula 2 07/12/17 12:15 66 16 139/60 95 Nasal Cannula 2 07/12/17 12:05 73 16 140/78 97 Oxymask 10 07/12/17 11:59 36.5 72 16 166/66 98 Oxymask 10 Notes Mental Status: alert / awake / arousable, participated in evaluation Pt Amnestic to Procedure: Yes Nausea / Vomiting: adequately controlled Pain: adequately controlled Airway Patency, RR, SpO2: stable & adequate BP & HR: stable & adequate Hydration State: stable & adequate Anesthetic Complications: no major complications apparent Awake, doing well, VSS. No complaints.
--- NOTE | 2017-07-12 14:07 | OPERATIVE REPORT ---
DATE OF OPERATION: 07/12/2017 SURGEON: Dr. Hogan. PALLIATIVE NURSE: Isadora Samano PA-C. PREOPERATIVE DIAGNOSES: Large right scrotal hernia, incarcerated, and incarcerated umbilical hernia. POSTOPERATIVE DIAGNOSES: Right indirect incarcerated scrotal hernia and incarcerated umbilical hernia. PROCEDURE: Open repair of the right indirect incarcerated hernia with Marlex mesh tension free, repair incarcerated umbilical hernia with Marlex mesh onlay. SUMMARY: The patient was brought into the operating room theater. A Main catheter had been inserted. After getting general anesthetic, systemic antibiotics were given. We prepped the abdomen and scrotum completely. The patient had a very large scrotal hernia, therefore, a Main catheter was inserted with the intention of leaving it in postoperatively and sending home with the patient. Once we had prepped the area with scrubbing solution, we then used 0.5% Marcaine without epinephrine to infiltrate 2 fingerbreadths of the anterior superior iliac crest on the right. An incision was made, curved a little bit from what appeared to be the uppermost portion of the scrotum with the external ring all the way toward the anterior superior iliac crest. The incision was about 4 inches long. This was deepened through subcutaneous tissue. We stayed lateral so we were able to get on the external oblique. It was dissected down, identified the shelving portion. At this point, more local was used underneath the external oblique which was opened along the course of its fibers, elevating, identifying the nerve in place, medially underneath hemostats. When we opened the external oblique to the external ring where we could identify as we placed a finger, there was significant amount of tissue that had incarcerated the external ring. We dissected mostly bluntly, tried to reduce it mostly from the scrotal area, which we were able, and the contents appeared to be intestine in general, was unsure if it was small-bowel or cecum at this time. We then were able to get into the hernial sac and reduced everything into the operative field. The hernial sac was left on the operative field. At this time, we had entered it. I tried to reduce it manually everything from the anterior approach, this was unsuccessful even though the patient had a very large defect which mostly was consistent with an indirect hernia. At this point, after multiple attempts, since the patient had had an umbilical hernia that would need repair also which was incarcerated, I made a linear incision up and down to the right of the umbilicus, deepened through subcutaneous tissue. We freed the incarcerated stuff from the umbilical area and entered the peritoneal cavity. I enlarged the incision. The umbilical opening was small, probably about 2 or 3 cm utmost, but we enlarged the incision sufficiently enough that I was able to place a [place] to elevate the abdominal wall and see if we could reduce more of this incarcerated inguinal contents. We still were unsuccessful to the point that I enlarged the incision sufficiently enough to place my hand inside the abdomen and manually reduce all the contents with my hand in the abdomen, the other one outside. Once we reduced, there was no difficulty. The hernial sac was identified easily. At this point, we dissected the hernial sac from tunica vaginalis. I did not resect it completely, just partially because it was a sliding type of hernia and I was afraid of vascularizing the contents which appeared to be cecum and small-bowel. Once partially the indirect sac was reduced, we closed with running chromic suture. We returned that preperitoneally and then I used 3-0 silk sutures to manually get some of the tissue out, mostly was indirect but some was direct, by approximating transversalis fascia to the point that then we were able to reconstruct the internal ring and reduce anything preperitoneally. The cord structure had been elevated on a [place] and we were away from any injury to the structures. I elected to bring a sheet of Marlex mesh, we used a 6 x 6 because I was going to use some of it for the umbilical area, cut it appropriately and onlaid it onto the symphysis pubis, shelving portion of the inguinal ligament, conjoined tendon superior to reconstruct the internal ring that could only accommodate the tip of a hemostat. This was done with 2-0 nylon suture. The nerve had been placed along the cord structure. Hemostasis was checked and appeared satisfactory. More local anesthetic was used along the operative field. Then, 3-0 silk suture was used to close the external oblique onto the cord and its structures, 2-0 Vicryl and francesco for skin edges. Our attention was then turned to the umbilical area. At this time, I basically unroofed the fascia around the midline, sufficient enough to expose and be able to place some Marlex mesh along the primary repair of the incarcerated umbilical hernia plus the midline incision that we enlarged to reduce the indirect hernia. We closed the peritoneum and the fascia with #1 PDS suture in running fashion. Then, I used a piece of Marlex mesh, probably about 3 cm wide, and onlaid it on top of the fascia circumferentially, well going beyond the primary closure of the PDS, probably 1 cm or 1.5 cm on both sides. Subcutaneous tissue was brought back together with 2-0 Vicryl and francesco for skin edges. Dressing was applied. The procedure was tolerated well by the patient. Estimated blood loss approximately 50 mL. The patient was taken to recovery room in good condition. I attest to the content of the Intraoperative Record and any orders documented therein. Any exception s are noted below.
[2017-07-12] MEDS ORDERED: IV FLUIDS COMPLETED PRN (14:15)
[2017-07-12] MEDS: CARBIDOPA/LEVODOPA 25/100MG TAB PO SCH ×2 (14:25→21:15)
[2017-07-12] MEDS: MYCOPHENOLATE MOFETIL 250 MG CAP (CELLCEPT) PO SCH (21:15)
[2017-07-12] MEDS ORDERED: ACETAMINOPHEN 500 MG TAB PO PRN (22:15)
[2017-07-12] MEDS ORDERED: NURSING VERBAL MED ORDER ONE (22:15)
[2017-07-13 03:56] VITALS: BP 132/73; PULSE 87; TEMP 37; O2SAT 93
[2017-07-13] MEDS: CARBIDOPA/LEVODOPA 25/100MG TAB PO SCH ×2 (05:50→13:37)
[2017-07-13 07:00] VITALS: BP 110/68; PULSE 94; TEMP 36.4; O2SAT 95
--- NOTE | 2017-07-13 07:05 | SURGERY PROGRESS NOTE ---
DATE: 07/13/2017 Shaquille is 1st postoperative day status post open right scrotal incarcerated hernia and incarcerated umbilical hernia. He is alert, coherent. Intraoperative findings were discussed with him. He tolerated a liquid diet without any problem. He only took some Tylenol for pain. His last vitals showed a temperature of 37, pulse 87, respirations 16, blood pressure 132/73, O2 sats 93 on room air. He had 600 urine out. He has a Main in. Abdomen, the dressing was changed. There is some scabbing along both the incision. The right groin incision had few areas of minimal oozing. The dressing was reapplied. We will apply an ice bag on it. The patient will be up and around. I will reevaluate him later today and likely send him home. We will also keep the Main catheter for approximately 1 week. EVANGELINA
[2017-07-13] MEDS ORDERED: OXYC-57 PO (07:24)
--- NOTE | 2017-07-13 07:27 | Discharge Instructions ---
Discharge Instructions Date of Service Jul 13, 2017. Admission Reason for Admission: Right Inguinal Hernia, Incarcerated Umbilical Mireille Discharge Discharge Diagnosis / Problem: repair of inguinal and umbilical hernias Discharge Goals Goal(s): Decrease discomfort Activity Recommendations Activity Limitations: as noted below Lifting Limitations: no more than 10 pounds Shower/Bathe: tomorrow . Instructions / Follow-Up Instructions / Follow-Up Dr. Hogan in 1 week, call [phone] if you do not already have an appt or have any questions You may take Tylenol for pain if you are not taking Percocet Catheter will be removed next week in the office Current Hospital Diet Patient's current hospital diet: Regular Diet Discharge Diet Recommended Diet: Regular Diet Procedures Procedures Performed: Open Right indirect Scrotal Hernia Repair with Mesh, and Open Incarcerated Umbilical Hernia Repair with Mesh Reinforcement Pending Studies Studies pending at discharge: no Laboratory Results Lipid Panel Test 04/14/17 05:32 Range/Units Triglycerides Level 135 0-150 mg/dl Cholesterol Level 93 0-200 mg/dl HDL Cholesterol 40 mg/dl Cholesterol/HDL Ratio 2.3 LDL Cholesterol, Calculated 26 mg/dl Medical Emergencies . Who to Call and When: Medical Emergencies: If at any time you feel your situation is an emergency, please call 911 immediately. . Non-Emergent Contact Non-Emergency issues call your: Surgeon Call Non-Emergent contact if: you have a fever, temperature is above 101.5, your pain is not controlled, wound has increased redness, wound has increased pain, you have any medication questions . "Provider Documentation" section prepared by Rigoberto Mora. . VTE Core Measure Inpt VTE Proph given/why not?: SCD's [place] Drug Monitoring Program Search Results: no issues identified
[2017-07-13] MEDS ORDERED: ASPIRIN 81 MG ECTAB PO SCH (09:00)
[2017-07-13] MEDS ORDERED: CLOPIDOGREL BISULFATE 75 MG TAB PO SCH (09:00)
[2017-07-13] MEDS ORDERED: TAMSULOSIN HCL 0.4 MG CAP PO SCH (09:00)
[2017-07-13] MEDS ORDERED: METOPROLOL SUCC 25MG EXT REL TAB PO SCH (09:00)
[2017-07-13] MEDS ORDERED: PANTOprazole SOD 40 MG TAB PO SCH (09:00)
[2017-07-13] MEDS ORDERED: ISOSORBIDE MONONITRATE 30 MG TABCR PO SCH (09:00)
[2017-07-13] MEDS ORDERED: SERTRALINE HCL 50 MG TAB PO SCH (09:00)
[2017-07-13 09:06] LABS: BASO % 0.3 %; BASO ABS # 0.03 K/uL (0-0.2); EOS % 0.4 %; EOS ABS # 0.04 K/uL (0-0.5); HEMATOCRIT 42.5 % (42-52); IG# 0.03 K/uL (0.00-0.02); LYMPH % 12.8 %; LYMPH ABS # 1.19 K/uL (1.2-3.4); MEAN CELL VOLUME 92.6 fL (80-100); MEAN CORPUSCULAR HEMOGLOBIN 30.5 pg (25-34); MEAN CORPUSCULAR HGB CONC 32.9 g/dl (32-36); MEAN PLATELET VOLUME 9.7 fL (7.4-10.4); MONO % 9.4 %; MONO ABS # 0.88 K/uL (0.11-0.59); NEUT % 76.8 %; NEUT ABS # 7.16 K/uL (1.4-6.5); PLATELET COUNT 130 K/uL (130-400); RED CELL DISTRIBUTION WIDTH CV 14.7 % (11.5-14.5); RED CELL DISTRIBUTION WIDTH SD 49.6 fL (36.4-46.3); WHITE BLOOD COUNT 9.33 K/uL (4.8-10.8)
[2017-07-13] MEDS: MYCOPHENOLATE MOFETIL 250 MG CAP (CELLCEPT) PO SCH (09:11)
--- NOTE | 2017-07-13 09:14 | Anesthesiology Progress Note ---
Anesthesia Post Op Note Date & Time Jul 13, 2017 at 09:14 Vital Signs Pain Intensity: 4.0 Vital Signs Past 12 Hours Date Time Temp Pulse Resp B/P (MAP) Pulse Ox O2 Delivery O2 Flow Rate FiO2 07/13/17 07:00 36.4 94 19 110/68 (82) 95 Room Air 07/13/17 03:56 37.0 87 16 132/73 (92) 93 Room Air 07/12/17 23:19 Room Air 07/12/17 23:00 37.0 82 18 136/74 (94) 92 Room Air Notes Mental Status: alert / awake / arousable, participated in evaluation Pt Amnestic to Procedure: Yes Nausea / Vomiting: adequately controlled Pain: adequately controlled Airway Patency, RR, SpO2: stable & adequate BP & HR: stable & adequate Hydration State: stable & adequate Anesthetic Complications: no major complications apparent
[2017-07-13 09:35] LABS: CALCIUM 8.3 mg/dl (8.5-10.1); CREATININE 0.71 mg/dl (0.60-1.40); POTASSIUM 3.6 mmol/L (3.5-5.1)
[2017-07-13] MEDS ORDERED: FLM4 PO (10:37)
[2017-07-13 11:54] VITALS: BP 110/68; PULSE 94; TEMP 36.4; O2SAT 95
--- NOTE | 2017-07-14 12:05 | DISCHARGE SUMMARY ---
PRIMARY DISCHARGE DIAGNOSES: 1. Large right scrotal hernia, incarcerated. 2. Incarcerated umbilical hernia. SECONDARY DISCHARGE DIAGNOSES: 1. Hypertension. 2. Prostate cancer. 3. Parkinson's. PROCEDURES PERFORMED: Open repair of an incarcerated right indirect inguinal hernia with mesh and repair of incarcerated umbilical hernia with mesh. HOSPITAL COURSE: The patient is an 86-year-old male with a large right inguinal hernia, brought in through same day and taken to the operating room for hernia repair as well as repair of incarcerated umbilical hernia. Procedures were well tolerated. He was transferred to the surgical floor for overnight observation. Main catheter was placed intraoperatively, planning to be continued for 1 week postoperatively. On postoperative day #1, he was doing well and was able to tolerate a regular diet and oral analgesics. His Main was placed to a leg bag. He was stable for discharge home with the assistance of his nephew with whom he lives. DISCHARGE INSTRUCTIONS: Discharge home with a Main catheter. We will remove this in the office in 1 week. DISCHARGE MEDICATIONS: Percocet 1 tablet every 4 hours as needed and Flomax 0.4 mg daily. Continue other home medications including Fosamax 70 mg weekly, Artificial Tears q.i.d. as needed, aspirin 81 mg daily, Lipitor 40 mg daily, Plavix 75 mg daily, vitamin B12 at 1000 mcg daily, isosorbide 30 mg daily, Sinemet 25/100 mg daily, melatonin 6 mg at bedtime, Toprol-XL 12.5 mg daily, CellCept 1000 mg every 12 hours, niacin 500 mg daily, Nitrostat 0.4 mg as needed, Prilosec 20 mg daily, prednisone 10 mg daily, Florastor 1 capsule b.i.d., and Zoloft 50 mg daily. Hold additional Tylenol while he is taking Percocet.
== END 2017-07-13 15:16 | disposition home health service (06) ==
LOC: C.ACU 07:52 → C.MSN 11:48 → ENRESERV 12:39
PROVIDERS: ADMIT Surgery; ATTEND Surgery
DX: K40.90 Unilateral inguinal hernia, without obstruction or gangrene, not specified as recurrent (principal); K42.9 Umbilical hernia without obstruction or gangrene; I25.2 Old myocardial infarction; I25.10 Atherosclerotic heart disease of native coronary artery without angina pectoris; I48.91 Unspecified atrial fibrillation; G20 Parkinson's disease; I10 Essential (primary) hypertension; C61 Malignant neoplasm of prostate; Z98.890 Other specified postprocedural states; Z87.442 Personal history of urinary calculi; Z79.82 Long term (current) use of aspirin; Z79.02 Long term (current) use of antithrombotics/antiplatelets; E66.9 Obesity, unspecified; Z68.30 Body mass index [BMI] 30.0-30.9, adult; Z82.49 Family history of ischemic heart disease and other diseases of the circulatory system; Z82.3 Family history of stroke; Z80.42 Family history of malignant neoplasm of prostate

== ENCOUNTER → 2017-07-22 | Outpatient (CLI) | payer OTHER ==
[~2017-07-22] MED LIST changes: -ACET-1693 PO; +FLM4 PO; -LACTATED RINGER'S 1000ML 1,000 ML IV SCH; +OXYC-57 PO
== END | disposition home or self-care (01) ==
LOC: C.LABSPEC 14:50
PROVIDERS: ATTEND Urology
DX: R31.0 Gross hematuria (principal); D49.4 Neoplasm of unspecified behavior of bladder

== ENCOUNTER → 2017-09-01 | Outpatient (CLI) | payer OTHER ==
--- NOTE | 2017-09-01 14:44 | DIAGNOSTIC IMAGING REPORT ---
WHOLE-BODY NUCLEAR BONE SCAN CLINICAL HISTORY: Prostate cancer. Elevated PSA. COMPARISON STUDY: CT scans of the cervical, thoracic, and lumbar spine dated 10/08/2016. TECHNIQUE: Three hours following the IV administration of 26.2 mCi of technetium 99m MDP, whole body nuclear bone scan was performed in the anterior and posterior projections. FINDINGS: There is abnormal tracer deposition identified involving the right sacral ala. There is focal linear abnormal tracer deposition identified in the midthoracic spine, likely involving T7. No additional foci of abnormal tracer deposition are identified. Typically degenerative uptake is identified in the shoulders. There is expected excreted activity within the renal collecting system and bladder. IMPRESSION: 1. There is heterogeneous abnormal tracer deposition identified involving the right sacral ala. Differential considerations include insufficiency fracture versus metastatic disease. Consider CT correlation. 2. There is abnormal linear tracer deposition identified in the midthoracic spine, likely involving the body of T7. This may represent posttraumatic change as there 1 a fracture at this site on the 10/08/2016 examination. Metastatic disease is considered less likely but would be impossible to completely exclude. 3. No additional abnormal foci of tracer in position are identified. Electronically signed by: Shaquille Lao M.D. 09/01/2017 2:42 PM Dictated Date/Time: 09/01/2017 2:35 PM
== END | disposition home or self-care (01) ==
LOC: C.NUCL 10:24
PROVIDERS: ATTEND Urology
DX: C61 Malignant neoplasm of prostate (principal); R97.20 Elevated prostate specific antigen [PSA]

== ENCOUNTER 2018-01-03 17:40 | Emergency (ER) | payer OTHER ==
[~2018-01-03] VITALS: Ht 170.2 cm; Wt 91.0 kg
[2018-01-03 17:40] VITALS: TEMP 37; Ht 170.2 cm; Wt 91.0 kg
[~2018-01-03 17:40] MED LIST changes: -SACC250C3 PEG; +SACC250C3 PO
--- NOTE | 2018-01-03 18:07 | DIAGNOSTIC IMAGING REPORT ---
HEAD WITHOUT CONTRAST (CT) CLINICAL HISTORY: 87 years-old Male presenting with fall on ASA/plavix. TECHNIQUE: Multidetector CT imaging of the head was performed without the use of intravenous contrast. IV contrast: None. A dose lowering technique was used consistent with the principles of ALARA (as low as reasonably achievable). COMPARISON: 10/08/2016. CT DOSE (mGy.cm): The estimated cumulative dose is 1228.53 mGy.cm. FINDINGS: Metal Coater topogram: Unremarkable. Proportional ventricular and sulcal prominence, likely age-related parenchymal volume loss. Periventricular and subcortical white matter hypoattenuation, nonspecific but likely indicative of chronic small vessel ischemic change. No mass effect or midline shift. No hemorrhage or acute territorial infarct. No extra-axial fluid collection. Paranasal sinuses and mastoid air cells clear. Calvarium intact. IMPRESSION: 1. Chronic small vessel ischemic change. No acute intracranial abnormality. Electronically signed by: Enrique Werner M.D. 01/03/2018 6:06 PM Dictated Date/Time: 01/03/2018 6:04 PM
--- NOTE | 2018-01-03 18:38 | EMERGENCY ROOM VISIT NOTE ---
History Report prepared by Shantal: Gisselle Berry Under the Supervision of: Dr. Sukh Alonzo M.D. First contact with patient: 17:43 Stated Complaint: FALL History of Present Illness The patient is a 87 year old male who presents to the Emergency Room with complaints of a sudden fall happening shortly prior to arrival. The patient states that he walked about 6 feet to get sugar at dinner, hit his knee, and fell backwards. He denies losing consciousness and denies feeling short of breath or having any pain. The patient reports that he is on a blood thinner. Per EMS, the patient is from [facility] where it is policy to send a patient to the ED after a fall. Per nursing staff, the patient has Parkinson's Disease. Per [facility] notes, the patient takes aspirin and Plavix. Per notes, the patient has a history of hypertension, inguinal hernia, and macular degeneration. Source of History: patient, nursing staff, other ([facility] notes) Onset: shortly prior to arrival Position: other (generalized) Quality: other (fall) Timing: other (sudden) Associated Symptoms: No LOC, No SOB Review of Systems See HPI for pertinent positives and negatives. A total of ten systems were reviewed and were otherwise negative. Past Medical & Surgical Medical Problems: (1) HTN (hypertension) (2) Inguinal hernia (3) Macular degeneration (4) Parkinson disease Family History Noncontributory secondary to age Social History Smoking Status: Never Smoker Marital Status: single Housing Status: long term Occupation Status: retired Current/Historical Medications Scheduled Alendronate Sodium (Fosamax), 70 MG PO WK Aspirin (Aspirin Chewable), 81 MG PO QAM Atorvastatin (Lipitor), 40 MG PO HS Clopidogrel (Plavix), 75 MG PO QAM Cyanocobalamin (Vitamin B-12), 1,000 MCG PO QAM Isosorbide Mononitrate (Isosorbide Mononitrate ER), 30 MG PO QAM Levodopa/Carbidopa (Sinemet 25MG/100MG), 1 TAB PO Q8 Melatonin (Melatonin), 6 MG PO HS Metoprolol Succinate (Toprol Xl), 12.5 MG PO QAM Mycophenolate Mofetil (Cellcept), 1,000 MG PO Q12 Niacin (Niacin), 500 MG PO QAM Omeprazole (Prilosec), 20 MG PO QAM Prednisone Tab (Prednisone), 10 MG PO QAM Saccharomyces Boulardii (Florastor), 1 CAP PEG BID Sertraline (Zoloft), 50 MG PO QAM Tamsulosin HCl (Tamsulosin HCl), 0.4 MG PO QAM Scheduled PRN Artificial Tear Solution (Natural Balance Tears 70.01-0.3 %), 1 DROP OPB QID PRN for DRYNESS Nitroglycerin (Nitrostat), 0.4 MG UT UD PRN for Chest Pain Oxycodone/Acetaminophen 5MG/325MG (Percocet 5MG/325MG), 1 TABLET PO Q4H PRN for Pain Allergies Coded Allergies: No Known Allergies (Unverified , 07/12/17) Physical Exam Vital Signs Date Time Temp Pulse Resp B/P (MAP) Pulse Ox O2 Delivery O2 Flow Rate FiO2 01/03/18 17:40 37.0 72 20 147/81 97 Room Air Physical Exam GENERAL: Awake, alert, well-appearing, in no distress HENT: Normocephalic, atraumatic. Oropharynx unremarkable. EYES: Normal conjunctiva. Sclera non-icteric. NECK: Supple. No nuchal rigidity. RESPIRATORY: Clear to auscultation. No wheezes. Normal respiratory effort. CARDIAC: Normal rate. Normal rhythm. Extremities warm and well perfused. GI: Soft, non-distended. No tenderness to palpation. No rebound or guarding. RECTAL: Deferred. MUSCULOSKELETAL: Atraumatic. Chest examination reveals no tenderness. There is no CVA tenderness to palpation. LOWER EXTREMITIES: Calves are equal size bilaterally and non-tender. No edema NEURO: Normal sensorium. No sensory or motor deficits noted. No facial droop. SKIN: Warm and dry. No rash or jaundice noted. Medical Decision & Procedures ER Provider Diagnostic Interpretation: Radiology results as stated below per my review and radiologist interpretation: HEAD WITHOUT CONTRAST (CT) CLINICAL HISTORY: 87 years-old Male presenting with fall on ASA/plavix. TECHNIQUE: Multidetector CT imaging of the head was performed without the use of intravenous contrast. IV contrast: None. A dose lowering technique was used consistent with the principles of ALARA (as low as reasonably achievable). COMPARISON: 10/08/2016. CT DOSE (mGy.cm): The estimated cumulative dose is 1228.53 mGy.cm. 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 Proportional ventricular and sulcal prominence, likely age-related parenchymal volume loss. Periventricular and subcortical white matter hypoattenuation, nonspecific but likely indicative of chronic small vessel ischemic change. No mass effect or midline shift. No hemorrhage or acute territorial infarct. No extra-axial fluid collection. Paranasal sinuses and mastoid air cells clear. Calvarium intact. IMPRESSION: 1. Chronic small vessel ischemic change. No acute intracranial abnormality. Electronically signed by: Enrique Werner M.D. 01/03/2018 6:06 PM Dictated Date/Time: 01/03/2018 6:04 PM ED Course 1743: The patient was evaluated in room B12B. A complete history and physical exam was performed. 1814: I reevaluated the patient. Discussed CT results: He verbalized understanding and agreement. The patient is ready for discharge. Medical Decision Differential diagnosis: Etiologies such as fracture, dislocation, intra-abdominal, pneumothorax, intrathoracic , intracranial, neurologic, as well as other traumatic pathologies were entertained. Patient presents after mechanical fall at his nursing facility. Evidently was reaching for some sweeteners and cut his foot and fell and struck his head on the carpeted floor. Is on aspirin and Plavix. No complaints. No headache. No neurological deficits. Denies any presyncopal symptoms. Sent here for further evaluation. Patient has no acute complaints. CT the head was completed given the fall with his use of antiplatelet agents. CT the head was unremarkable. Doubt cervical or other traumatic injury based on exam/NEXUS criteria. He is tolerating oral intake and appears well. Will be discharged back to [facility] facility. Follow up with PCP in 1 week to discuss BP. Head Trauma GCS Score: 15 Medication Reconcilliation Current Medication List: was personally reviewed by me Blood Pressure Screening Patient's blood pressure: Elevated blood pressure Blood pressure disposition: Referred to PCP Impression Primary Impression: Fall Scribe Attestation The scribe's documentation has been prepared under my direction and personally reviewed by me in its entirety. I confirm that the note above accurately reflects all work, treatment, procedures, and medical decision making performed by me. Departure Information Dispostion Home / Self-Care Referrals [facility] (PCP) Forms HOME CARE DOCUMENTATION FORM, IMPORTANT VISIT INFORMATION Additional Instructions Please be careful to avoid falls in the future. Continue stay hydrated and eat regular meals. If he develops a severe headache, nausea, vomiting, or other concerning signs or symptoms please return here for reevaluation. Continue all your current medications. Follow-up with your regular doctor in the next 1-2 weeks and discuss her hypertension Problem Qualifiers Primary Impression: Fall Encounter type: initial encounter Qualified Codes: W19.XXXA - Unspecified fall, initial encounter
[2018-01-03] MEDS ORDERED: BICA50TA40 PO (18:46)
[2018-01-03] MEDS ORDERED: DOCU-94 PO (18:49)
[2018-01-03] MEDS ORDERED: MULT-190 PO (18:53)
[2018-01-03] MEDS ORDERED: ACET-1256 PO (18:57)
[2018-01-03] MEDS ORDERED: CLOB1OIN2 TOP (19:00)
[2018-01-03 19:34] VITALS: BP 161/88; PULSE 63; O2SAT 90
== END 2018-01-03 19:35 ==
LOC: EDBD 17:40 → C.EDB 17:41
DX: Z04.3 Encounter for examination and observation following other accident (principal); W01.198A Fall on same level from slipping, tripping and stumbling with subsequent striking against other object, initial encounter; Y92.199 Unspecified place in other specified residential institution as the place of occurrence of the external cause; I10 Essential (primary) hypertension; H35.30 Unspecified macular degeneration; G20 Parkinson's disease; Z79.899 Other long term (current) drug therapy; Z79.82 Long term (current) use of aspirin; Z79.01 Long term (current) use of anticoagulants

== ENCOUNTER → 2018-01-05 | Outpatient (CLI) | payer OTHER ==
[~2018-01-05] MED LIST changes: +ACET-1256 PO; +BICA50TA40 PO; +CLOB1OIN2 TOP; +DOCU-94 PO; -FLM4 PO; +MULT-190 PO; -OXYC-57 PO
== END | disposition home or self-care (01) ==
LOC: C.LABSPEC 17:18 → C.PATHSPEC 17:19
PROVIDERS: ATTEND Urology
DX: C61 Malignant neoplasm of prostate (principal); R31.0 Gross hematuria

== ENCOUNTER 2018-12-14 00:03 | Inpatient (IN) ==
[2018-12-14] MEDS ORDERED: ONDANSETRON INJ 2 MG/ML 2 ML VIAL IV STA (00:12)
[2018-12-14] MEDS ORDERED: SODIUM CHLORIDE 0.9% 1000ML 500 ML IV ONE (00:12)
[2018-12-14] MEDS ORDERED: DIPHTHERIA/TETANUS/PERTUSSIS 0.5 ML SYR/VIAL IM ONE (00:14)
[2018-12-14 00:30] LABS: Basophils # (auto) 0.02 K/uL (0-0.2); Basophils % (auto) 0.2 %; Eosinophils # (auto) 0.12 K/uL (0-0.5); Eosinophils % (auto) 1.4 %; Hematocrit (blood only) 40.2 % (42-52); Hemoglobin 13.1 g/dL (14.0-18.0); Immature Granulocytes # (auto) 0.01 K/uL (0.00-0.02); Immature Granulocytes % (auto) 0.1 %; Lymphocytes # (auto) 1.26 K/uL (1.2-3.4); Lymphocytes % (auto) 14.5 %; Mean Corpuscular Hgb Conc 32.6 g/dL (32-36); Mean Corpuscular Volume 88.7 fL (80-100); Mean Platelet Volume 9.8 fL (7.4-10.4); Monocytes # (auto) 0.87 K/uL (0.11-0.59); Neutrophils # (auto) 6.43 K/uL (1.4-6.5); Neutrophils % (auto) 73.8 %; Platelet Count 136 K/uL (130-400); RDW Coefficient of Variation 14.5 % (11.5-14.5); RDW Standard Deviation 46.7 fL (36.4-46.3); Red Blood Count 4.53 M/uL (4.7-6.1); White Blood Count 8.71 K/uL (4.8-10.8)
[2018-12-14 00:49] LABS: BUN Creatinine Ratio 15.5 (10-20); Calcium 7.6 mg/dl (8.5-10.1); Creatinine Clr Calc Pharmacy 65.4 ml/min; Est GFR (Non-African American) 82.8; Magnesium 2.4 mg/dl (1.8-2.4); Potassium 3.2 mmol/L (3.5-5.1)
[2018-12-14 00:54] LABS: Troponin I 0.023 ng/ml (0-0.045)
[2018-12-14 00:58] LABS: Appearance Urine Clear (Clear); Bilirubin Urine Negative (Negative); Color Urine Yellow; Glucose Urine UA Negative (Negative); Ketones Urine Negative (Negative); Leukocyte Esterase Urine Negative (Negative); Nitrite Urine Negative (Negative); Protein Urine Negative (Negative); Specific Gravity Urine 1.013 (1.000-1.030); Urobilinogen Urine Negative (Negative)
[2018-12-14 02:28] LABS: INR 1.2 (0.9-1.1); Prothrombin Time 12.4 Seconds (9.0-12.0)
--- NOTE | 2018-12-14 03:20 | Emergency Department Note ---
Entered by Becky Underwood acting as a scribe for James Dyson MD ED Provider Note Name: Shaquille Shah Age: 88 M Arrives Via: EMS Informant: Patient CC: Fall HPI: The patient is an 88 year old male presenting to the Emergency Department complaining of an episode of a fall starting 2 hours ago. The patient reports that he was trying to get out of bed and fell. He states that when he fell he landed on his left side. He notes that he didnt hit his head but that his head is sore and he has neck pain. He adds that he has experienced these symptoms before as he has fallen before. 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 EMS states that the patient had pneumonia a few weeks ago. He notes that he laid on the floor for about an hour before he was found. He adds that he has Parkinsons disease and resides at [facility]. The patient denies head trauma, abdominal pain, vomiting, diarrhea, chest pain and shortness of breath. ROS: See above HPI for pertinent positives & negatives. A total of 10 systems reviewed and were otherwise negative. Past Medical History: Parkinson's disease, HTN, Macular degeneration. Past Surgical History: N/A Family History: Non-contributory. Social History: Feels safe at home. Never a smoker. Home Medications: See home medications list. Allergies Morphine. Physical: Vitals: BP: 124/68, Pulse: 65, Respirations: 18, Temperature: 97.7F, O2 Saturation: 95, Delivery: Room air . Exam: GENERAL: Patient is elderly and weak appearing and in no acute distress. EYES: No scleral icterus, unremarkable pupils. ENT: Mucous membranes dry, no nasal congestion. NECK: No masses appreciated, no meningismus, trachea is midline. RESPIRATORY: No dyspnea. Clear to auscultation and equal bilaterally. No wheeze, no rhonchi. CARDIOVASCULAR: Irregular rate and rhythm. No murmurs, rubs, gallops appr eciated. GASTROINTESTINAL: Abdomen soft, non-tender, no peritonitis. Bowel sounds positive. No masses appreciated. BACK: No midline tenderness, no CVA tenderness EXTREMITIES: Normal motion all extremities, no cyanosis, no edema. NEUROLOGIC: Alert and oriented, no acute motor or sensory deficits, no focal weakness, cranial nerves grossly intact. Mild dementia. GCS 15. SKIN: No rash, no jaundice, no diaphoresis. Skin tear of right elbow. ED Course: 0027: Prior Medical Record, Triage/Nursing Notes, Medications, Allergies reviewed by Me. The patient was evaluated in room A3, and a complete history and physical examination were performed. 0212: I reevaluated the patient at this time who is feeling better. The patient reports that he has been feeling slightly weak for the past few days. 0230: I discussed the patient's case with Dr. Duran - [facility] hospitalist. He will evaluate the patient for further management. Vital Signs: reviewed and remarkable for wnl Labs: Reviewed and remarkable for wnl Interventions: saline lock, zofran 4mg IV, NSS bolus 500ml IV Imaging: X ray results are stated below per my interpretation: Chest: 1 view: Indication Fall/Weakness. No infiltrate, normal cardiac border. Questionable effusion right lower lung mildly increased from previous. Pelvis: 1 view: Indication Fall: no fracture/dislocation EKG: #1: Per My Interpretation: Indication Weakness: Afib 57 bpm with pvcs no ischemia qtc 461. Afib is new compared to previous #2: Per My Interpretation: Indication Weakness: Afib 65 bpm with pvcs no ischemia qtc 492. Similar to earlier EKG Consults: Dr Duran Blood pressure: Normal. No Referral necessary Disposition: Hospialization Differentials: Differential Diagnosis includes but is not limited to dehyd ration, stroke, anemia, hypoglycemia, hyponatremia, hypernatremia, urinary tract infection, pneumonia, bronchitis, sepsis, gastroenteritis, additional abdominal pathology, metabolic abnormalities and infections amongst other pathologies. Medical Decision Making: Pleasant 88 yr old male with parkinson, htn, and lives at assisted living. Fell this evening due to weakness and was on the floor for an hour. Abrasion right elbow otherwise no obvious injury by exam. He has ROM elbow without pain. Given age/weakness CT head done which was negative. CXR witout significant findings though there is small increase right lower effusion. Pelvix xr OK. He is noted to be in Afib on EKG and repeat EKG also consistent with this. Though on monitor noted to be flipping back to NSR. Suspect weakness is AFib related along with some dehydration due to recent illness. Given he is weak, falling and has new onset Afib I feel bringing in reasonable for further management. Impression: Generalized weakness, New onset a-fib, Fall, Abrasion of right arm. The scribe's documentation has been prepared under my direction and personally reviewed by me in its entirety. I confirm that the note above accurately reflects all work, treatment, procedures, and medical decision making performed by me. James Dyson MD Impression & Plan Generalized weakness, New onset a-fib, Fall, Abrasion of right arm Past Med/Surg History Medical History Macular degeneration (Chronic) Parkinson disease (Chronic) HTN (hypertension) (Chronic) Parkinson disease (Chronic) Family History Other Family history non-contributory Social History Preferred Language: Welsh Feels Safe at Home: Yes Smoking Status: Never smoker Results & Data Vital Signs Vital Signs - 24 hr 12/14/18 00:26 12/14/18 01:11 12/14/18 02:10 Temperature 36.5 C Temperature Source Oral Sepsis Recent Fever Within 48 Hours No Sepsis New/Unexplained Change in Mental Status No Sepsis Action Taken by Nursing No Action Required Pulse Rate 65 Pulse Rate [Apical] 62 64 Respiratory Rate 18 18 15 Respiratory Effort / Characteristics Non-Labored Spontaneous Non-Labored Spontaneous Respiratory Depth Normal Normal Blood Pressure 124/68 Blood Pressure [Left Arm] 112/57 L 94/64 L Blood Pressure Mean 86 Blood Pressure Mean [Left Arm] 75 74 Pulse Oximetry 95 93 95 Oxygen Delivery Method Room Air Room Air Room Air Home Medications Current Medication List: was personally reviewed by me Laboratory Data Attestation: I reviewed the patient's lab results. Result diagrams: 12/14/18 00:22 12/14/18 00:22 Lab Results 12/14/18 12/14/18 12/14/18 Range/Units 00:22 00:22 00:23 WBC 8.71 (4.8-10.8) K/uL RBC 4.53 L (4.7-6.1) M/uL Hgb 13.1 L (14.0-18.0) g/dL Hct 40.2 L (42-52) % MCV 88.7 (80-100) fL MCH 28.9 (25-34) pg MCHC 32.6 (32-36) g/dL RDW Std Deviation 46.7 H (36.4-46.3) fL RDW Coeff of Aida 14.5 (11.5-14.5) % Plt Count 136 (130-400) K/uL MPV 9.8 (7.4-10.4) fL Immature Gran % (Auto) 0.1 % Neut % (Auto) 73.8 % Lymph % (Auto) 14.5 % [place] % (Auto) 10.0 % Eos % (Auto) 1.4 % Baso % (Auto) 0.2 % Immature Gran # (Auto) 0.01 (0.00-0.02) K/uL Neut # (Auto) 6.43 (1.4-6.5) K/uL Lymph # (Auto) 1.26 (1.2-3.4) K/uL [place] # (Auto) 0.87 H (0.11-0.59) K/uL Eos # (Auto) 0.12 (0-0.5) K/uL Baso # (Auto) 0.02 (0-0.2) K/uL PT 12.4 H (9.0-12.0) Seconds INR 1.2 H (0.9-1.1) Sodium 144 (136-145) mmol/L Potassium 3.2 L (3.5-5.1) mmol/L Chloride 109 H (98-107) mmol/L Carbon Dioxide 31 (21-32) mmol/L Anion Gap 4.0 (3-11) BUN 11 (7-18) mg/dl Creatinine 0.73 (0.6-1.4) mg/dl Est Cr Clr Drug Dosing 65.4 ml/min Est GFR ( Amer) 96.0 Est GFR (Non-Af Amer) 82.8 BUN/Creatinine Ratio 15.5 (10-20) Glucose 119 H (70-99) mg/dl Calcium 7.6 L (8.5-10.1) mg/dl Magnesium 2.4 (1.8-2.4) mg/dl Troponin I 0.023 (0-0.045) ng/ml Urine Color Urine Appearance (Clear) Urine pH (4.5-7.5) Ur Specific [place] (1.000-1.030) Urine Protein (Negative) Urine Glucose (UA) (Negative) Urine Ketones (Negative) Urine Blood (Negative) Urine Nitrite (Negative) Urine Bilirubin (Negative) Urine Urobilinogen (Negative) Ur Leukocyte Esterase (Negative) 12/14/18 Range/Units 00:51 WBC (4.8-10.8) K/uL RBC (4.7-6.1) M/uL Hgb (14.0-18.0) g/dL Hct (42-52) % MCV (80-100) fL MCH (25-34) pg MCHC (32-36) g/dL RDW Std Deviation (36.4-46.3) fL RDW Coeff of Aida (11.5-14.5) % Plt Count (130-400) K/uL MPV (7.4-10.4) fL Immature Gran % (Auto) % Neut % (Auto) % Lymph % (Auto) % [place] % (Auto) % Eos % (Auto) % Baso % (Auto) % Immature Gran # (Auto) (0.00-0.02) K/uL Neut # (Auto) (1.4-6.5) K/uL Lymph # (Auto) (1.2-3.4) K/uL [place] # (Auto) (0.11-0.59) K/uL Eos # (Auto) (0-0.5) K/uL Baso # (Auto) (0-0.2) K/uL PT (9.0-12.0) Seconds INR (0.9-1.1) Sodium (136-145) mmol/L Potassium (3.5-5.1) mmol/L Chloride (98-107) mmol/L Carbon Dioxide (21-32) mmol/L Anion Gap (3-11) BUN (7-18) mg/dl Creatinine (0.6-1.4) mg/dl Est Cr Clr Drug Dosing ml/min Est GFR ( Amer) Est GFR (Non-Af Amer) BUN/Creatinine Ratio (10-20) Glucose (70-99) mg/dl Calcium (8.5-10.1) mg/dl Magnesium (1.8-2.4) mg/dl Troponin I (0-0.045) ng/ml Urine Color Yellow Urine Appearance Clear (Clear) Urine pH 7.0 (4.5-7.5) Ur Specific [place] 1.013 (1.000-1.030) Urine Protein Negative (Negative) Urine Glucose (UA) Negative (Negative) Urine Ketones Negative (Negative) Urine Blood Negative (Negative) Urine Nitrite Negative (Negative) Urine Bilirubin Negative (Negative) Urine Urobilinogen Negative (Negative) Ur Leukocyte Esterase Negative (Negative) Administered Medications Discontinued Medications Diphtheria/Pertussis/Tetanus Vacc (Adacel) 0.5 ml IM .ONCE ONE Stop: 12/14/18 00:15 Last Admin: 12/14/18 00:40 Dose: 0.5 ml Documented by: [id number] Sodium Chloride (Nss 1000ml) 500 mls @ 999 mls/hr IV .Q31M ONE Stop: 12/14/18 00:42 Last Infusion: 12/14/18 00:54 Dose: 0 mls/hr Documented by: [id number] Admin: 12/14/18 00:30 Dose: 999 mls/hr Documented by: [id number] Ondansetron HCl (Zofran) 4 mg IV NOW STA Stop: 12/14/18 00:13 Last Admin: 12/14/18 00:38 Dose: 4 mg Documented by: [id number] Imaging Data Attestation: I personally reviewed and interpreted this imaging study as follows: Radiologist's Impression: Radiology results as stated below per my review and the radiologist's interpretation: ECG Data Attestation: I personally reviewed and interpreted this ECG as follows: Blood Pressure Blood Pressure Findings: Low blood pressure Blood Pressure Disposition: further management by hospitalist Discharge Plan Visit Data Chief Complaint: Fall Stated Complaint: FALL ED Provider: James Dyson Discharge Problem: Generalized weakness, New onset a-fib, Fall, Abrasion of right arm Patient Disposition: Being Evaluated by Hospitalist Forms Stand Alone Forms: My [facility] [place] [facility]isk Prescriptions Prescriptions: No Action atorvastatin 40 mg Tablet 40 mg PO HS RF: 0 bicalutamide 50 mg Tablet 50 mg PO QPM RF: 0 isosorbide mononitrate 30 mg Tablet Extended Release 24 Hr 30 mg PO QAM RF: 0 alendronate [Fosamax] 70 mg Tablet 70 mg PO WK RF: 0 cyanocobalamin (vitamin B-12) [Vitamin B-12] 1,000 mcg Tablet 1,000 mcg PO QAM RF: 0 melatonin 3 mg Tablet 3 mg PO HS RF: 0 clopidogrel [Plavix] 75 mg Tablet 75 mg PO QAM RF: 0 acetaminophen [Acetaminophen Extra Strength] 500 mg Tablet 500 mg PO Q4H MDD 3g/24hr PRN (Reason: Pain) RF: 0 mycophenolate mofetil 500 mg Tablet 1,000 mg PO Q12H RF: 0 nitroglycerin [Nitrostat] 0.4 mg Tablet, Sublingual 0.4 mg Sublingual DIRECTED PRN (Reason: Chest Pain) RF: 0 docusate sodium [Colace] 100 mg Capsule 100 mg PO BID RF: 0 omeprazole 20 mg Capsule,Delayed Release(Dr/Ec) 20 mg PO QAM RF: 0 metoprolol succinate 25 mg Tablet Extended Release 24 Hr 12.5 mg PO QAM RF: 0 carbidopa-levodopa [Sinemet] 25-100 mg Tablet 1 tab PO Q8H RF: 0 sertraline [Zoloft] 50 mg Tablet 50 mg PO HS RF: 0 Artificial Tears (PF) Dropperette 1 drp OPB QID RF: 0 Florastor 250 mg Capsule 250 mg PO BID RF: 0 niacin 500 mg Tablet Extended Release 500 mg PO QAM RF: 0 PreserVision AREDS-2 [id number] [id number] Capsule 1 tab PO AMHS RF: 0 loperamide 2 mg Capsule 2 mg PO Q4 PRN (Reason: Diarrhea) RF: 0 Referrals Referrals: STEVEN, [Primary Care Provider] - Discharge Problem: Fall Qualifiers: Encounter type: initial encounter Qualified Code(s): W19.XXXA - Unspecified fall, initial encounter Abrasion of right arm Qualifiers: Encounter type: initial encounter Qualified Code(s): S40.811A - Abrasion of right upper arm, initial encounter The scribe's documentation has been prepared under my direction and personally reviewed by me in its entirety. I confirm that the note above accurately reflects all work, treatment, procedures, and medical decision making performed by me.
--- NOTE | 2018-12-14 03:42 | History & Physical Report ---
Date of Service December 14, 2018 Assessment & Plan (1) New onset a-fib: (2) Generalized weakness: (3) Fall: (4) Parkinson disease: (5) Abrasion of right arm: (6) Macular degeneration: (7) HTN (hypertension): Patient will be placed under observation status, cardiology will be consulted to manage atrial fibrillation, I would not anticoagulate him since he is a fall risk, will continue outpatient medications where appropriate. PT/OT eval, patient is likely falling secondary to progressive Parkinson's disease. 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 Patient resides at [facility] and has been falling recently. He had a cold about 2 days ago possible pneumonia last week complains to me of having nausea. He also complained of dizziness to me which was getting worse over the last couple days. In the emergency room he was found to be in atrial fibrillation, but when I saw him he was in sinus rhythm with PACs and PVCs. I looked at the 2 previous EKGs which did show atrial fibrillation. Possibly could be having atrial fibrillation intermittently causing him to fall when he loses atrial kick. He will be placed under observation likely to be here less than 2 Past medical historyherpes ophthalmicus, coronary artery disease requiring a CABG, benign prostatic hypertrophy plus or minus prostate cancer Past surgical historyTURP, four-vessel CABG, tonsillectomy, scrotal hernia repair Family history-mother of coronary disease father of a stroke Primary Care Provider: STEVEN Allergies Allergy/AdvReac Type Severity Reaction Status Date / Time morphine AdvReac Unknown Unknown Unverified 12/14/18 01:34 Home Medications Home Medications Medication Instructions Recorded Confirmed Type Saccharomyces boulardii [Florastor] 250 mg PO BID 08/06/18 12/14/18 History acetaminophen [Acetaminophen Extra 500 mg PO Q4H PRN MDD 3g/24hr 08/06/18 12/14/18 History Strength] alendronate [Fosamax] 70 mg PO WK 08/06/18 12/14/18 History atorvastatin 40 mg PO HS 08/06/18 12/14/18 History bicalutamide 50 mg PO QPM 08/06/18 12/14/18 History carbidopa-levodopa [Sinemet] 1 tab PO Q8H 08/06/18 12/14/18 History clopidogrel [Plavix] 75 mg PO QAM 08/06/18 12/14/18 History cyanocobalamin (vitamin B-12) 1,000 mcg PO QAM 08/06/18 12/14/18 History [Vitamin B-12] dextran 70-hypromellose 1 drp OPB QID 08/06/18 12/14/18 History [Artificial Tears (PF)] docusate sodium [Colace] 100 mg PO BID 08/06/18 12/14/18 History isosorbide mononitrate 30 mg PO QAM 08/06/18 12/14/18 History melatonin 3 mg PO HS 08/06/18 12/14/18 History metoprolol succinate 12.5 mg PO QAM 08/06/18 12/14/18 History mycophenolate mofetil 1,000 mg PO Q12H 08/06/18 12/14/18 History niacin 500 mg PO QAM 08/06/18 12/14/18 History nitroglycerin [Nitrostat] 0.4 mg SUBLINGUAL DIRECTED PRN 08/06/18 12/14/18 History omeprazole 20 mg PO QAM 08/06/18 12/14/18 History sertraline [Zoloft] 50 mg PO HS 08/06/18 12/14/18 History vit C,B-Ta-jnhlw-lutein-zeaxan 1 tab PO AMHS 08/06/18 12/14/18 History [PreserVision AREDS-2] loperamide 2 mg PO Q4 PRN 12/14/18 12/14/18 History Past Med/Surg History Medical History Macular degeneration (Chronic) Parkinson disease (Chronic) HTN (hypertension) (Chronic) Parkinson disease (Chronic) Family History Other Family history non-contributory Social History Preferred Language: Iranian Feels Safe at Home: Yes Smoking Status: Never smoker Results & Data Vital Signs (Past 12 Hours) Vital Signs Temp Pulse Pulse Resp BP BP Pulse Ox 12/14/18 02:10 64 15 94/64 L 95 12/14/18 01:11 62 18 112/57 L 93 12/14/18 00:26 36.5 C 65 18 124/68 95 Allergies morphine Adverse Reaction (Unknown, Unverified 12/14/18 01:34) Unknown Height/Weight/Isolation Height 5 ft 7 in Weight 74.7 kg CBC 12/14/18 12/14/18 12/14/18 00:22 00:22 00:23 WBC 8.71 RBC 4.53 L Hgb 13.1 L Hct 40.2 L MCV 88.7 MCH 28.9 MCHC 32.6 RDW Std Deviation 46.7 H RDW Coeff of Aida 14.5 Plt Count 136 MPV 9.8 Immature Gran % (Auto) 0.1 Neut % (Auto) 73.8 Lymph % (Auto) 14.5 [place] % (Auto) 10.0 Eos % (Auto) 1.4 Baso % (Auto) 0.2 Immature Gran # (Auto) 0.01 Neut # (Auto) 6.43 Lymph # (Auto) 1.26 [place] # (Auto) 0.87 H Eos # (Auto) 0.12 Baso # (Auto) 0.02 PT 12.4 H INR 1.2 H Sodium 144 Potassium 3.2 L Chloride 109 H Carbon Dioxide 31 Anion Gap 4.0 BUN 11 Creatinine 0.73 Est Cr Clr Drug Dosing 65.4 Est GFR ( Amer) 96.0 Est GFR (Non-Af Amer) 82.8 BUN/Creatinine Ratio 15.5 Glucose 119 H Calcium 7.6 L Magnesium 2.4 Troponin I 0.023 Urine Color Urine Appearance Urine pH Ur Specific [place] Urine Protein Urine Glucose (UA) Urine Ketones Urine Blood Urine Nitrite Urine Bilirubin Urine Urobilinogen Ur Leukocyte Esterase 12/14/18 00:51 WBC RBC Hgb Hct MCV MCH MCHC RDW Std Deviation RDW Coeff of Aida Plt Count MPV Immature Gran % (Auto) Neut % (Auto) Lymph % (Auto) [place] % (Auto) Eos % (Auto) Baso % (Auto) Immature Gran # (Auto) Neut # (Auto) Lymph # (Auto) [place] # (Auto) Eos # (Auto) Baso # (Auto) PT INR Sodium Potassium Chloride Carbon Dioxide Anion Gap BUN Creatinine Est Cr Clr Drug Dosing Est GFR ( Amer) Est GFR (Non-Af Amer) BUN/Creatinine Ratio Glucose Calcium Magnesium Troponin I Urine Color Yellow Urine Appearance Clear Urine pH 7.0 Ur Specific [place] 1.013 Urine Protein Negative Urine Glucose (UA) Negative Urine Ketones Negative Urine Blood Negative Urine Nitrite Negative Urine Bilirubin Negative Urine Urobilinogen Negative Ur Leukocyte Esterase Negative Chemistry 12/14/18 00:22 Sodium 144 Potassium 3.2 L Chloride 109 H Carbon Dioxide 31 Anion Gap 4.0 BUN 11 Creatinine 0.73 Glucose 119 H Urinalysis 12/14/18 00:51 Urine Color Yellow Urine Appearance Clear Urine pH 7.0 Ur Specific [place] 1.013 Urine Protein Negative Urine Glucose (UA) Negative Urine Ketones Negative Urine Blood Negative Urine Nitrite Negative Urine Bilirubin Negative (1) Fall Encounter type: initial encounter Qualified Code(s): W19.XXXA - Unspecified fall, initial encounter (2) Abrasion of right arm Encounter type: initial encounter Qualified Code(s): S40.811A - Abrasion of right upper arm, initial encounter
[2018-12-14] MEDS ORDERED: LOPERAMIDE HCL 2 MG CAP PO PRN (04:23)
[2018-12-14] MEDS ORDERED: POLYETHYLENE (MIRALAX) 17 GM PACK PO PRN (04:23)
[2018-12-14] MEDS ORDERED: ACETAMINOPHEN 325 MG TAB PO PRN (04:23)
[2018-12-14] MEDS ORDERED: NITROGLYCERIN SL 0.4 MG/TAB TAB SL PRN (04:23)
[2018-12-14] MEDS: HEPARIN SOD 5,000 UNIT/0.5 ML VIAL SQ SCH ×3 (06:11→21:16)
[2018-12-14] MEDS: CARBIDOPA/LEVODOPA 25/100MG TAB PO SCH ×3 (06:12→21:16)
--- NOTE | 2018-12-14 06:33 | XRay Report ---
XR pelvis 1-2V routine CLINICAL HISTORY: fall COMPARISON: Pelvis radiograph October 08, 2016. CT of the abdomen and pelvis August 06, 2018. FINDINGS: There are pelvic surgical clips. The sacroiliac joints and symphysis pubis are intact. The re is no acute fracture within the pelvis or hips. Mild to moderate bilateral hip osteoarthritis is n oted. IMPRESSION: No acute fracture within the pelvis or hips. Electronically signed by: Jaret Hallman M.D. 12/14/2018 6:32 AM
--- NOTE | 2018-12-14 06:35 | XRay Report ---
XR chest 1V portable CLINICAL HISTORY: fall, recent pneumonia COMPARISON STUDY: Chest radiograph October 08, 2016. FINDINGS: There are median sternotomy wires. Cardiomegaly is unchanged. There is no evidence for pneu monia or pulmonary edema. Blunting of the right costophrenic angle and elevation of the right hemidia phragm is chronic. Minimal left basilar opacity favors atelectasis. IMPRESSION: No acute cardiopulmonary findings. No change in appearance of the chest. Electronically signed by: Jaret Hallman M.D. 12/14/2018 6:34 AM
--- NOTE | 2018-12-14 06:47 | CT Scan Report ---
CT OF THE HEAD WITHOUT CONTRAST CLINICAL HISTORY: fall, headache COMPARISON STUDY: Head CT January 03, 2018. CT DOSE: 1062.09 mGy.cm TECHNIQUE: Helical axial images of the head were obtained without IV contrast. Automated exposure con trol was utilized for the study. A dose lowering technique was utilized adhering to the principles o f ALARA. FINDINGS: No acute intracranial hemorrhage, midline shift or mass effect is present. The ventricular system is unremarkable. The basilar cisterns are patent. No extra-axial collections are present. Ther e are no findings to suggest acute dural sinus thrombosis or acute territorial infarct. White matter hypodensities represent small vessel disease. Mild atrophy is noted. No significant calvarial abnorma lities are present. Visualized portions of the sinuses and mastoid air cells are clear. IMPRESSION: 1. No acute intracranial findings. 2. No calvarial fracture. Electronically signed by: Jaret Hlalman M.D. 12/14/2018 6:46 AM
--- NOTE | 2018-12-14 07:23 | CT Scan Report ---
CT cervical spine wo con CLINICAL HISTORY: 88 years-old Male presenting with fall, headache. TECHNIQUE: Multidetector CT of the cervical spine was performed without the use of intravenous contra st. IV contrast: None. One or more dose lowering techniques were used consistent with the principles of ALARA (as low as reasonably achievable), including automatic exposure control, mA or kV adjustment to individual patient size, and/or use of iterative reconstruction. COMPARISON: 10/08/2016. CT DOSE (mGy.cm): The estimated cumulative dose is 1062.09. FINDINGS: Technical Support Specialist topogram: Median sternotomy wires. Shortening of normal cervical lordosis. Vertebral bodies maintain normal height and alignment. Modera te to severe intervertebral disc height loss from C3-4 through C5-6. Disc osteophyte complexes at safia rly every level. Posterior spondylitic spurring is greatest at C3-4 and C5-6 resulting in mild to mod erate osseous spinal canal narrowing. Mild facet arthropathy and uncovertebral hypertrophy result in multilevel osseous neural foraminal narrowing. No acute fracture or subluxation. Degenerative changes of the atlantodental articulation. Limited evaluation of the skull base intact. Lung apices clear. G as within the venous vasculature likely relates to injection technique. Paraspinal musculature within normal limits. Atherosclerosis noted. IMPRESSION: 1. No acute osseous injury. 2. Multilevel degenerative changes. Electronically signed by: Enrique Werner M.D. 12/14/2018 7:22 AM
[2018-12-14] MEDS ORDERED: POTASSIUM CHLORIDE 10 MEQ TABCR PO STA (07:48)
[2018-12-14] MEDS: METOPROLOL SUCC 25MG EXT REL TAB PO SCH (08:09)
[2018-12-14] MEDS: CYANOCOBALAMIN 500 MCG TABLET (VITAMIN B-12) PO SCH (08:10)
[2018-12-14] MEDS: CEROVITE ADV FORMULA TAB PO SCH ×2 (08:10→21:16)
[2018-12-14] MEDS: PANTOprazole 40 MG TAB PO SCH (08:11)
[2018-12-14] MEDS: MYCOPHENOLATE MOFETIL 250 MG CAP PO SCH ×2 (08:11→21:15)
[2018-12-14] MEDS: ISOSORBIDE MONO EXTENDED REL 30 MG TABCR PO SCH (08:11)
[2018-12-14] MEDS: SACCHAROMYCES BOULARDII 250 MG CAP PO SCH ×2 (08:11→21:15)
[2018-12-14] MEDS: DOCUSATE SODIUM 100 MG CAP PO SCH ×3 (08:12→21:15)
[2018-12-14] MEDS: CLOPIDOGREL BISULFATE 75 MG TAB PO SCH (08:12)
[2018-12-14] MEDS: NIACIN EXTENDED REL 500 MG TABCR PO SCH (08:16)
[2018-12-14] MEDS: ARTIFICIAL TEARS OP SCH ×4 (08:16→21:15)
--- NOTE | 2018-12-14 11:43 | Cardiology Consultation ---
Date of Consultation December 14, 2018 Assessment & Plan (1) Paroxysmal atrial fibrillation with rapid ventricular response: (2) RBBB (right bundle branch block): (3) Fall: (4) Parkinson disease: Patient was admitted after a fall. The patient established with our cardiology practice in March 2017. The initial outpatient cardiology consult note dated 04/28/2017 describes that he had a history of coronary heart disease and CABG performed in [facility]. At that time the diagnosis of Parkinson's was noted and was noted to have gait instability. EKG performed at the time of that visit in 2016 revealed atrial fibrillation with PVCs and right bundle branch block with rate of 71 bpm. I do not believe that the patient's finding of atrial fibrillation is an acute finding. It was felt to perhaps be a new diagnosis in 2017. Per review of his telemetry, I think we have observed that he does have episodes of sinus rhythm with long first-degree AV block. On telemetry, his rhythm can be difficult to distinguish at times because of loss of a clear baseline but I think this is related to his Parkinson's tremor as I was observing his telemetry while watching his tremor, and there is certainly a correlation with difficulty discerning P waves with when his left upper extremity tremor is worse. At this time, I think it is clear that he has underlying conduction system disease as a long first-degree AV block was demonstrated on repeat EKG today and he has a chronic right bundle branch block. I do not however see significant bradycardia or pauses to correlate with his falls and his gait instability appears to be a chronic issue. Would recommend that we continue to monitor him, and perhaps perform a 2-week Zio potline monitor to exclude occult worsening bradycardia. If he does have significant bradycardia or pauses greater than 3 seconds, then perhaps pacemaker support would help, but I do not see a clear indication for this at present. I would continue his low-dose metoprolol with caution. Agree with physical therapy input. His potassium was 3.2 today and this was replaced orally. History of Present Illness Attending Physician: Wild Kim MD History of Present Illness Shaquille Shah is an 88 year old male seen in cardiology consultation per the request of Dr Duran for the evaluation of atrial fibrillation and falls. 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 His primary metrology technician is Dr Shah. His most recent follow up visit took place with Damián Alberto PA-C of our practice on 11/10/18. At that time stable cardiac signs and symptoms were noted. The patient had recently undergone a procedure to remove the bladder tumor. He had significant hematuria post procedure. Initially Plavix and aspirin were held and after the bleeding resolved Plavix was reinitiated without aspirin. Patient is a history of Parkinson's with related cognitive impairment and diff iculty with his balance. He he reportedly was admitted after a fall. Was subsequently admitted. He is in the first floor ICU, room 103 as a telemetry overflow patient. Cardiac / Medical Problem List: 1. Atherosclerotic coronary disease status post coronary bypass grafting x 3 1998 for multivessel disease receiving SALOMON graft to LAD, saphenous vein graft to right posterior descending artery saphenous vein graft to the obtuse marginal 2. Repeat cardiac catheterization June 2014 for angina pectoris receiving drug-eluting stent to saphenous vein graft to the obtuse marginal . Patent left internal mammary artery graft and saphenous vein graft to the PDA noted. Severe tyonek vessel disease discerned, RCA 100% mid vessel, circumflex OM 100% ostial LAD 99% 3. Chronic stable angina pectoris 4. Hypertension 5. Hyperlipidemia 6. atrial fibrillation with controlled ventricular response rate, poor anticoagulation candidate 7. Parkinsonism with gait instability 8. Bladder CA s/p resection Allergies Allergy/AdvReac Type Severity Reaction Status Date / Time morphine AdvReac Unknown Unknown Unverified 12/14/18 01:34 Home Medications Home Medications Medication Instructions Recorded Confirmed Type Saccharomyces boulardii [Florastor] 250 mg PO BID 08/06/18 12/14/18 History acetaminophen [Acetaminophen Extra 500 mg PO Q4H PRN MDD 3g/24hr 08/06/18 12/14/18 History Strength] alendronate [Fosamax] 70 mg PO WK 08/06/18 12/14/18 History atorvastatin 40 mg PO HS 08/06/18 12/14/18 History bicalutamide 50 mg PO QPM 08/06/18 12/14/18 History carbidopa-levodopa [Sinemet] 1 tab PO Q8H 08/06/18 12/14/18 History clopidogrel [Plavix] 75 mg PO QAM 08/06/18 12/14/18 History cyanocobalamin (vitamin B-12) 1,000 mcg PO QAM 08/06/18 12/14/18 History [Vitamin B-12] dextran 70-hypromellose 1 drp OPB QID 08/06/18 12/14/18 History [Artificial Tears (PF)] docusate sodium [Colace] 100 mg PO BID 08/06/18 12/14/18 History isosorbide mononitrate 30 mg PO QAM 08/06/18 12/14/18 History melatonin 3 mg PO HS 08/06/18 12/14/18 History metoprolol succinate 12.5 mg PO QAM 08/06/18 12/14/18 History mycophenolate mofetil 1,000 mg PO Q12H 08/06/18 12/14/18 History niacin 500 mg PO QAM 08/06/18 12/14/18 History nitroglycerin [Nitrostat] 0.4 mg SUBLINGUAL DIRECTED PRN 08/06/18 12/14/18 History omeprazole 20 mg PO QAM 08/06/18 12/14/18 History sertraline [Zoloft] 50 mg PO HS 08/06/18 12/14/18 History vit C,L-Tg-tfgyg-lutein-zeaxan 1 tab PO AMHS 08/06/18 12/14/18 History [PreserVision AREDS-2] loperamide 2 mg PO Q4 PRN 12/14/18 12/14/18 History Patient History Medical History Macular degeneration (Chronic) Parkinson disease (Chronic) HTN (hypertension) (Chronic) Parkinson disease (Chronic) Family History Other Family history non-contributory Social History Preferred Language: Algerian Communication Ability: Effective Beliefs That Will Affect Care: None Current Living Situation: Personal Care Facility Other Information That Helps Us Care for You: No Feels Safe at Home: Yes Safety Concerns: Feels Safe At This Time Smoking Status: Never smoker Hx Alcohol Use: No Hx Substance Use: No Review of Systems Review of Systems: All systems reviewed & are unremarkable except as noted in HPI & below Physical Exam Physical Exam: Temp Pulse Resp BP Pulse Ox 36.3 C L 58 L 14 107/61 97 12/14/18 11:44 12/14/18 11:44 12/14/18 11:44 12/14/18 11:44 12/14/18 11:44 General: no acute distress and stated age Eyes: conjunctiva are pink and non-injected, sclera clear Neck: normal jugular venous pulse, no hepatojugular reflux Chest: normal shape and normal respiratory effort Lungs: clear to auscultation and percussion Cardiac Exam: - regular heart sounds, no murmurs, rubs, or gallops, no jugular venous distention Abdomen: abdomen soft, non-tender, no abnormal masses and no hepatosplenomegaly Extremities: no edema and no cyanosis Neuro:awake, coversant, mild cognitive impairment noted in terms of patient providing history, resting left upper extremity tremor noted Psych: appropriate affect and insight. 12/14/18 Range/Units 00:22 Troponin I 0.023 (0-0.045) ng/ml Coagulation 12/14/18 Range/Units 00:23 PT 12.4 H (9.0-12.0) [place] ds CBC 12/14/18 Range/Units 00:22 WBC 8.71 (4.8-10.8) K/uL RBC 4.53 L (4.7-6.1) M/uL Hgb 13.1 L (14.0-18.0) g/dL Hct 40.2 L (42-52) % Plt Count 136 (130-400) K/uL Neut # (Auto) 6.43 (1.4-6.5) K/uL Lymph # (Auto) 1.26 (1.2-3.4) K/uL [place] # (Auto) 0.87 H (0.11-0.59) K/uL Eos # (Auto) 0.12 (0-0.5) K/uL Baso # (Auto) 0.02 (0-0.2) K/uL Comprehensive Metabolic Panel 12/14/18 Range/Units 00:22 Sodium 144 (136-145) mmol/L Potassium 3.2 L (3.5-5.1) mmol/L Chloride 109 H (98-107) mmol/L Carbon Dioxide 31 (21-32) mmol/L BUN 11 (7-18) mg/dl Creatinine 0.73 (0.6-1.4) mg/dl Glucose 119 H (70-99) mg/dl Calcium 7.6 L (8.5-10.1) mg/dl Intake and Output 12/13/18 12/14/18 12/14/18 22:59 06:59 14:59 Intake Total 500 / 500 Output Total 200 / 200 Balance 500 / 500 -200 / -200 Intake: IV 500 / 500 Nss 1000ML 500 ml @ 999 mls/hr 500 / 500 IV .Q31M ONE R x#:[id number] Output: Urine 200 / 200 Other: Weight 70.6 kg Results & Data Vital Signs (Past 12 Hours) Vital Signs Temp Pulse Pulse Resp BP BP Pulse Ox 12/14/18 07:48 36.5 C 68 18 109/62 96 12/14/18 05:01 58 L 12 129/39 L 94 12/14/18 05:00 64 14 97 12/14/18 04:18 36.7 C 57 L 18 120/62 93 12/14/18 04:16 36.8 C 77 16 120/62 96 12/14/18 04:01 61 18 102/59 L 94 12/14/18 03:01 61 12 138/66 96 12/14/18 03:00 58 L 5 L 97 12/14/18 02:10 64 15 94/64 L 95 12/14/18 02:01 71 17 94/64 L 12/14/18 02:00 55 L 15 12/14/18 01:11 62 18 112/57 L 93 12/14/18 01:07 72 21 112/57 L 12/14/18 01:06 60 20 12/14/18 00:26 36.5 C 65 18 124/68 95 12/14/18 00:08 61 16 98 12/14/18 00:06 58 L 20 124/68 98 Diagnostic Findings EKG performed 12/14/18 at 12:39 AM: Atrial fibrillation at 65 bpm with right bundle branch block and occasional PVCs or aberrantly conducted PACs EKG performed 12/14/2018 at 2:15 AM: Atrial fibrillation at 57 bpm with occasional PVCs, right bundle branch block EKG performed 12/14/2018 8020 3 AM: Sinus bradycardia at 59 bpm long first-degree AV block, MS interval 322 milliseconds, right bundle branch block. Compared to the prior tracing, sinus rhythm with first-degree AV block is replaced atrial fibrillation. (1) Fall Encounter type: initial encounter Qualified Code(s): W19.XXXA - Unspecified fall, initial encounter
--- NOTE | 2018-12-14 13:33 | Hospitalist Progress Note ---
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) given H/O parkinson's Fall precautions Will avoid Midodrine due to bradycardia Liberalize salt in diet, Teds Hypokalemia: Replace and monitor electrolytes as needed Parkinson's disease Continue home medications Will need evaluation by neurology as outpatient GERD: Continue PPI H/O CAD S/P CABG Continue Plavix, statin, metoprolol, Imdur DVT Px: SCDs CODE STATUS Full code Disposition PT OT: Recommend SNF Case management consulted Subjective Patient is seen and examined at bedside No significant pauses on telemetry Patient denies any chest pain, shortness of breath He reports dizziness which is positional Discussed with cardiology today Also states having intermittent headache since 1 week duration Admits to having palpitations intermittently prior to admission No other complaints Review of Systems Review of Systems: All systems reviewed & are unremarkable except as noted in HPI & below Physical Exam Physical Exam: Physical Exam: Vitals signs as noted above General Appearance: Elderly, + resting tremor, no apparent distress Head: normocephalic, Atraumatic Eyes: normal inspection, EOMI Neck: supple, Trachea midline Respiratory/Chest: Normal breath sounds, CTA Cardiovascular: S1, S2, No murmur Abdomen/GI:Soft, Non tender, Bowel sounds present Extremities/Musculoskelatal:normal inspection, no edema Neurologic/Psych:AAOX3, grossly no focal neurological deficits Skin: normal color, warm, midline vertical well-healed surgical scar on chest Results & Data Vital Signs (Past 12 Hours) Vital Signs Temp Pulse Pulse Resp BP BP Pulse Ox 12/14/18 11:44 36.3 C L 58 L 14 107/61 97 12/14/18 11:09 58 L 4 L 107/61 96 12/14/18 11:00 61 15 111/57 L 96 12/14/18 10:00 71 14 110/72 94 12/14/18 09:01 59 L 18 127/68 98 12/14/18 08:01 63 17 114/66 96 12/14/18 07:48 36.5 C 68 18 109/62 96 12/14/18 07:14 60 16 109/62 94 12/14/18 07:01 76 22 101/46 L 93 12/14/18 05:01 58 L 12 129/39 L 94 12/14/18 05:00 64 14 97 12/14/18 04:18 36.7 C 57 L 18 120/62 93 12/14/18 04:16 36.8 C 77 16 120/62 96 12/14/18 04:01 61 18 102/59 L 94 12/14/18 03:01 61 12 138/66 96 12/14/18 03:00 58 L 5 L 97 12/14/18 02:10 64 15 94/64 L 95 12/14/18 02:01 71 17 94/64 L 12/14/18 02:00 55 L 15 Laboratory Results Short CBC 12/14/18 Range/Units 00:22 WBC 8.71 (4.8-10.8) K/uL Hgb 13.1 L (14.0-18.0) g/dL Hct 40.2 L (42-52) % Plt Count 136 (130-400) K/uL BMP 12/14/18 00:22 Sodium 144 Potassium 3.2 L Chloride 109 H Carbon Dioxide 31 BUN 11 Creatinine 0.73 Glucose 119 H Calcium 7.6 L Cardiac Enzymes 12/14/18 Range/Units 00:22 Troponin I 0.023 (0-0.045) ng/ml Urine 12/14/18 Range/Units 00:51 Urine Color Yellow Urine Appearance Clear (Clear) Urine pH 7.0 (4.5-7.5) Ur Specific [place] 1.013 (1.000-1.030) Urine Protein Negative (Negative) Urine Glucose (UA) Negative (Negative)
[2018-12-14] MEDS: ATORVASTATIN 40 MG TAB PO SCH (21:15)
[2018-12-14] MEDS: BICALUTAMIDE 50 MG TAB PO SCH (21:15)
[2018-12-14] MEDS: SERTRALINE HCL 50 MG TABLET PO SCH (21:16)
[2018-12-15] MEDS: CARBIDOPA/LEVODOPA 25/100MG TAB PO SCH ×3 (06:07→21:56)
[2018-12-15] MEDS: HEPARIN SOD 5,000 UNIT/0.5 ML VIAL SQ SCH ×3 (06:07→20:55)
[2018-12-15 07:53] LABS: Creatinine Clr Calc Pharmacy 86.8 ml/min; Est GFR (African American) 107.8; Potassium 3.7 mmol/L (3.5-5.1)
[2018-12-15] MEDS: MYCOPHENOLATE MOFETIL 250 MG CAP PO SCH ×2 (09:28→20:52)
[2018-12-15] MEDS: DOCUSATE SODIUM 100 MG CAP PO SCH ×2 (09:28→21:01)
[2018-12-15] MEDS: SACCHAROMYCES BOULARDII 250 MG CAP PO SCH ×2 (09:29→20:53)
[2018-12-15] MEDS: CYANOCOBALAMIN 500 MCG TABLET (VITAMIN B-12) PO SCH (09:30)
[2018-12-15] MEDS: CEROVITE ADV FORMULA TAB PO SCH ×2 (09:31→20:54)
[2018-12-15] MEDS: CLOPIDOGREL BISULFATE 75 MG TAB PO SCH (09:31)
[2018-12-15] MEDS: PANTOprazole 40 MG TAB PO SCH (09:31)
[2018-12-15] MEDS: ARTIFICIAL TEARS OP SCH ×4 (09:32→20:51)
[2018-12-15] MEDS: NIACIN EXTENDED REL 500 MG TABCR PO SCH (09:36)
--- NOTE | 2018-12-15 09:39 | Cardiology Progress Note ---
Date of Service December 15, 2018 Assessment & Plan (1) Paroxysmal atrial fibrillation with rapid ventricular response: Seemingly asymptomatic atrial fibrillation with an acceptably controlled ventricular response. No significant bradycardia or pauses. Continue low-dose metoprolol Patient with contraindications to anticoagulation. 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 Telemetry demonstrates sinus rhythm with long first-degree AV block. Patient denies palpitations or chest discomfort. Reports chronic low back pain at this time. Denies lightheadedness, dizziness, syncope, or near syncope. PE: VSS. General: NAD, hard of hearing. HEENT: Mucous membranes moist, no scleral icterus. Heart: Regular, normal S1, S2. No S3 or S4 gallop. No murmur appreciated. Lungs clear bilateral without rales rhonchi or wheeze. Extremities: Muscle wasting noted. No clubbing, cyanosis, or edema. A/P: Agree with above PA-C history, physical exam, assessment and plan. Patient will be scheduled for outpatient ZIO monitor. Continue current medications. No further inpatient testing at this time. Sung Weinstein DO, [facility] Subjective Patient seen and examined. Chart, medications, telemetry reviewed. Admitted after a fall. Cardiology consultation requested secondary to atrial fibrillation. Patient has a history of atrial fibrillation dating back at least into March 2017. Telemetry demonstrates what appears to be paroxysmal atrial fibrillation along with sinus with a prolonged first-degree AV block, atrial and ventricular ectopy. Telemetry baseline is somewhat poor due to the tremor. No significant bradycardia or pauses observed. Positional lightheadedness/dizziness noted this morning. No chest pain, tachypalpitations, or unusual shortness of breath. Physical Exam Physical Exam: General: A&O to person and place. NAD. HEENT: Normocephalic. Atraumatic. PER. Conjunctiva pink and non-injected, sclera clear. Neck: Normal JVP. No HJR. Heart: Irregularly irregular in the 60's. Soft systolic ejection murmur. No diastolic murmur. Lungs: Clear to auscultation. Abdomen: +BS. Soft. Nontender. Extremities: No edema. No cyanosis. Neuro:awake, coversant, mild cognitive impairment noted in terms of patient providing history, resting left upper extremity tremor noted. Psych: appropriate affect and insight Results & Data Vital Signs (Past 12 Hours) Vital Signs Temp Pulse Resp BP Pulse Ox 12/15/18 03:34 36.5 C 66 16 152/72 H 95 12/14/18 23:27 36.3 C L 65 30 H 119/64 12/14/18 22:54 36.7 C 63 17 147/73 H 97 Laboratory Results - last 24 hr 12/15/18 06:57 Sodium 144 Potassium 3.7 D Chloride 111 H Carbon Dioxide 28 Anion Gap 5.0 BUN 7 Creatinine 0.55 L Est Cr Clr Drug Dosing 86.8 Est GFR ( Amer) 107.8 Est GFR (Non-Af Amer) 93.0 BUN/Creatinine Ratio 12.0 Glucose 90 Calcium 8.0 L
[2018-12-15] MEDS: METOPROLOL SUCC 25MG EXT REL TAB PO SCH (11:24)
[2018-12-15] MEDS: ISOSORBIDE MONO EXTENDED REL 30 MG TABCR PO SCH (11:24)
--- NOTE | 2018-12-15 15:04 | Neurology Consultation ---
Date of Consultation December 15, 2018 Assessment & Plan (1) Parkinson disease: Mr. Shah is a 88 year old male with tremor predominant PD following with Dr. Herzog as outpatient who has been relatively stable in regards to his PD per Dr. Herzog last office visit. Patient notes having intermittent dizziness which is positional although he states can occur while supine but rare. He has a history of falls. He was diagnosed with paroxysmal Afib and seen by cardiology. Deemed a poor candidate for anticoagulation due to falls. He found to have pretty significant orthostatic blood pressures since admission. Orthostatic blood pressures likely significantly contributing to his dizziness and falls. Sinemet may be contributing also. Orthostatic hypotension is a common and difficult symptom affecting PD patients. Current therapeutical strategies include non-pharmacological and pharmacological measures. Recommend trial of Florinef 0.1 mg daily if not contradindicated from cardiology standpoint. Agree with PT/OT. Otherwise will plan to arrange follow up in Neurology clinic with Dr. Herzog as outpatient. (2) Orthostatic hypotension: History of Present Illness Attending Physician: Wild Kim MD History of Present Illness An 88 year old male admitted on 12/14/2018 for dizziness. He resides at a SNF. He reports chronic history of intermittent dizziness which is positional and can last only a few seconds. He denies dizziness at the moment. He has a history of falls and states his last fall was a few days ago. He was found to have paroxysmal Afib and seen by cardiology. He has history of PD and is on Sinemet 25/100 mg TID. Also has a history CAD s/p CABG. On admission pt had CT head which was negative for acute intracranial process. He is on PLavix for his CAD. Patient follows with Dr. Herzog. Last seen in August 2018. Reports history of PD hallucinations. chronic left eye vision loss. He believed his PD has been stable and did not recommend changing dose of Sinemet. 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 Allergies Allergy/AdvReac Type Severity Reaction Status Date / Time morphine AdvReac Unknown Unknown Unverified 12/14/18 01:34 Home Medications Home Medications Medication Instructions Recorded Confirmed Type Saccharomyces boulardii [Florastor] 250 mg PO BID 08/06/18 12/14/18 History acetaminophen [Acetaminophen Extra 500 mg PO Q4H PRN MDD 3g/24hr 08/06/18 12/14/18 History Strength] alendronate [Fosamax] 70 mg PO WK 08/06/18 12/14/18 History atorvastatin 40 mg PO HS 08/06/18 12/14/18 History bicalutamide 50 mg PO QPM 08/06/18 12/14/18 History carbidopa-levodopa [Sinemet] 1 tab PO Q8H 08/06/18 12/14/18 History clopidogrel [Plavix] 75 mg PO QAM 08/06/18 12/14/18 History cyanocobalamin (vitamin B-12) 1,000 mcg PO QAM 08/06/18 12/14/18 History [Vitamin B-12] dextran 70-hypromellose 1 drp OPB QID 08/06/18 12/14/18 History [Artificial Tears (PF)] docusate sodium [Colace] 100 mg PO BID 08/06/18 12/14/18 History isosorbide mononitrate 30 mg PO QAM 08/06/18 12/14/18 History melatonin 3 mg PO HS 08/06/18 12/14/18 History metoprolol succinate 12.5 mg PO QAM 08/06/18 12/14/18 History mycophenolate mofetil 1,000 mg PO Q12H 08/06/18 12/14/18 History niacin 500 mg PO QAM 08/06/18 12/14/18 History nitroglycerin [Nitrostat] 0.4 mg SUBLINGUAL DIRECTED PRN 08/06/18 12/14/18 History omeprazole 20 mg PO QAM 08/06/18 12/14/18 History sertraline [Zoloft] 50 mg PO HS 08/06/18 12/14/18 History vit C,V-Gv-pbvsj-lutein-zeaxan 1 tab PO AMHS 08/06/18 12/14/18 History [PreserVision AREDS-2] loperamide 2 mg PO Q4 PRN 12/14/18 12/14/18 History Patient History Medical History Macular degeneration (Chronic) Parkinson disease (Chronic) HTN (hypertension) (Chronic) Parkinson disease (Chronic) Family History Other Family history non-contributory Social History Preferred Language: Sinhala Communication Ability: Effective Beliefs That Will Affect Care: None Current Living Situation: Personal Care Facility Other Information That Helps Us Care for You: No Feels Safe at Home: Yes Safety Concerns: Feels Safe At This Time Smoking Status: Never smoker Hx Alcohol Use: No Hx Substance Use: No Physical Exam Physical Exam: EXAM: Constitutional: appears chronically ill Head and Face: normocephalic and atraumatic Eyes: normal lids, normal conjunctiva, left eye ptosis Neck: supple Respiratory: normal effort Cardiovascular: regular rhythm and normal pulses Abdomen: non distended Skin: no rashes, lesions, or ulcers noted Psychiatric: tangential NEUROLOGIC EXAMINATION: Appearance: no acute distress Orientation: awake, alert and oriented x 3 Mental Status: alert Memory: Poor Attention: decreased Knowledge: Ok Language: no aphasia Speech: no dysarthria, soft speech Cranial Nerves: CN 2 - no visual defect on confrontation and pupils round, equal, reactive to light CN 3, 4, 6 - extra-ocular movements intact, limited left eye abduction CN 5 - facial sensation intact CN 7 - masked facies CN 8 - intact hearing CN 9, 10 - palate symmetric CN 11 - good shoulder shrug CN 12 - tongue midline Gait: deferred Coordination: left hand tremor Sensory: intact to light touch Muscle Tone: cogwheel rigidity Muscle exam: Interosseous weakness bilateral Reflexes: No clonus, negative dinero Results & Data Vital Signs (Past 12 Hours) Vital Signs Temp Pulse Resp BP Pulse Ox 12/15/18 11:18 36.9 C 64 18 149/75 H 97 12/15/18 03:34 36.5 C 66 16 152/72 H 95
--- NOTE | 2018-12-15 15:45 | Hospitalist Progress Note ---
Date of Service December 15, 2018 Assessment & Plan (1) Paroxysmal atrial fibrillation with rapid ventricular response: Chronic paroxysmal atrial fibrillation First-degree AV block Chronic right bundle branch block No significant bradycardia/Pauses on Monitor Appreciate cardiology input Continue low-dose metoprolol as per cardiology Needs 2-week Zio cafeteria monitor arranged as outpatient Dizziness Multiple Falls: In setting of Parkinson's disease with baseline balance issues Positive orthostatics PT OT evaluation Could have multiple systemic atrophy given H/O parkinson's Fall precautions Will avoid Midodrine due to bradycardia Liberalize salt in diet, Teds Consulted Neurology for Input Hypokalemia: Replace and monitor electrolytes as needed Resolved Parkinson's disease Continue home medications Neurology on board GERD: Continue PPI H/O CAD S/P CABG Continue Plavix, statin, metoprolol, Imdur DVT Px: SCDs CODE STATUS Full code Disposition PT OT: Recommend SNF Case management consulted Subjective Patient is seen and examined at bedside At significant orthostatic hypotension this morning States having dizziness with ambulation, sitting Patient denies any chest pain, shortness of breath No other complaints Review of Systems Review of Systems: All systems reviewed & are unremarkable except as noted in HPI & below Physical Exam Physical Exam: Physical Exam: Vitals signs as noted above General Appearance: Elderly, + resting tremor, no apparent distress Head: normocephalic, Atraumatic Eyes: normal inspection, EOMI Neck: supple, Trachea midline Respiratory/Chest: Normal breath sounds, CTA Cardiovascular: S1, S2, No murmur Abdomen/GI:Soft, Non tender, Bowel sounds present Extremities/Musculoskelatal:normal inspection, no edema Neurologic/Psych:AAOX3, grossly no focal neurological deficits Skin: normal color, warm, midline vertical well-healed surgical scar on chest Results & Data Vital Signs (Past 12 Hours) Vital Signs Temp Pulse Resp BP Pulse Ox 12/15/18 11:18 36.9 C 64 18 149/75 H 97
[2018-12-15] MEDS: FLUDROCORTISONE ACETATE 0.1 MG TAB PO SCH (19:06)
[2018-12-15] MEDS: BICALUTAMIDE 50 MG TAB PO SCH (20:51)
[2018-12-15] MEDS: ATORVASTATIN 40 MG TAB PO SCH (20:53)
[2018-12-15] MEDS: SERTRALINE HCL 50 MG TABLET PO SCH (20:54)
[2018-12-16] MEDS: HEPARIN SOD 5,000 UNIT/0.5 ML VIAL SQ SCH ×3 (05:19→21:10)
[2018-12-16] MEDS: CARBIDOPA/LEVODOPA 25/100MG TAB PO SCH ×3 (05:19→21:10)
[2018-12-16 06:33] LABS: BUN Creatinine Ratio 14.1 (10-20); Calcium 8.4 mg/dl (8.5-10.1); Est GFR (African American) 102.7; Est GFR (Non-African American) 88.6; Potassium 3.7 mmol/L (3.5-5.1)
[2018-12-16] MEDS: MYCOPHENOLATE MOFETIL 250 MG CAP PO SCH ×2 (07:51→21:09)
[2018-12-16] MEDS: ARTIFICIAL TEARS OP SCH ×4 (07:51→20:29)
[2018-12-16] MEDS: SACCHAROMYCES BOULARDII 250 MG CAP PO SCH ×2 (07:52→20:30)
[2018-12-16] MEDS: FLUDROCORTISONE ACETATE 0.1 MG TAB PO SCH (07:52)
[2018-12-16] MEDS: ISOSORBIDE MONO EXTENDED REL 30 MG TABCR PO SCH (07:52)
[2018-12-16] MEDS: CEROVITE ADV FORMULA TAB PO SCH ×2 (07:53→20:33)
[2018-12-16] MEDS: CYANOCOBALAMIN 500 MCG TABLET (VITAMIN B-12) PO SCH (07:54)
[2018-12-16] MEDS: CLOPIDOGREL BISULFATE 75 MG TAB PO SCH (07:54)
[2018-12-16] MEDS: METOPROLOL SUCC 25MG EXT REL TAB PO SCH (07:54)
[2018-12-16] MEDS: PANTOprazole 40 MG TAB PO SCH (07:54)
[2018-12-16] MEDS: DOCUSATE SODIUM 100 MG CAP PO SCH ×2 (08:43→20:33)
[2018-12-16] MEDS: NIACIN EXTENDED REL 500 MG TABCR PO SCH (08:44)
--- NOTE | 2018-12-16 14:09 | Neurology Progress Note ---
Date of Service December 16, 2018 Assessment & Plan (1) Parkinson disease: Mr. Shah is a 88 year old male with tremor predominant parkinson's disease with history of falls and dizziness. He follows with Dr. Herzog as outpatient who has been relatively stable in regards to his parkinsons disease. He does have visual hallucinations which are chronic and he is aware. He was admitted for fall and dizziness. He was diagnosed with paroxysmal Afib and seen by cardiology. Deemed a poor candidate for anticoagulation due to falls. He found to have pretty significant orthostatic blood pressures which are likley contributing to his dizziness and falls. Recommend to continue Florinef 0.1 mg daily for orthostatic hypotension commonly seen in parkinson's disease. Ok to discharge from neurology standpoint. He can follow up with Dr. Herzog as outpatient. Please call with any further questions or concerns. (2) Orthostatic hypotension: Subjective Patient was seen and examined this morning. Sleeping when entered but woke quickly. Denies any complaints or concerns this morning. He is bit confused and was asking about a train to take him home. Denies dizziness at this time. Physical Exam Physical Exam: EXAM: Constitutional: appears chronically ill Head and Face: normocephalic and atraumatic Eyes: normal lids, normal conjunctiva, left eye ptosis Neck: supple Respiratory: normal effort Cardiovascular: regular rhythm and normal pulses Abdomen: non distended Skin: no rashes, lesions, or ulcers noted Psychiatric: tangential NEUROLOGIC EXAMINATION: Appearance: no acute distress Orientation: lethargic this morning Mental Status: drowsy Memory: Poor Attention: decreased Knowledge: Poor Language: no aphasia Speech: no dysarthria, soft speech Cranial Nerves: CN 2 - no visual defect on confrontation and pupils round, equal, reactive to light CN 3, 4, 6 - extra-ocular movements intact, limited left eye abduction CN 5 - facial sensation intact CN 7 - masked facies CN 8 - intact hearing CN 9, 10 - palate symmetric CN 11 - good shoulder shrug CN 12 - tongue midline Gait: deferred Coordination: left hand tremor Sensory: intact to light touch Muscle Tone: cogwheel rigidity Muscle exam: Interosseous weakness bilateral Reflexes: No clonus, negative dinero Results & Data Vital Signs (Past 12 Hours) Vital Signs Temp Pulse Resp BP Pulse Ox 12/16/18 07:11 36.6 C 63 16 120/66 93 12/16/18 02:31 36.8 C 60 16 144/70 H 95
--- NOTE | 2018-12-16 14:41 | Hospitalist Progress Note ---
Date of Service December 16, 2018 Assessment & Plan (1) Paroxysmal atrial fibrillation with rapid ventricular response: Chronic paroxysmal atrial fibrillation First-degree AV block Chronic right bundle branch block No significant bradycardia/Pauses on Monitor Appreciate cardiology input Continue low-dose metoprolol as per cardiology Note on anticoagulation due to high fall risk Needs 2-week Zio electric brain wave equipment mechanic arranged as outpatient Dizziness Multiple Falls: In setting of Parkinson's disease with baseline balance issues Positive orthostatics PT OT evaluation Could have multiple systemic atrophy given H/O parkinson's Fall precautions Started on Florinef for orthostatic hypotension Sinemet likely contributing to dizziness Liberalize salt in diet, Teds Appreciate Neurology Input Hypokalemia: Replace and monitor electrolytes as needed Resolved Parkinson's disease Continue home medications Neurology on board GERD: Continue PPI H/O CAD S/P CABG Continue Plavix, statin, metoprolol, Imdur DVT Px: SCDs CODE STATUS Full code Disposition PT OT: Recommend SNF Plan to discharge once accepted at rehab facility Case management consulted Subjective Patient is seen and examined at bedside Denies any dizziness today No new complaints Started Florinef for orthostatic hypotension Denies any chest pain, shortness of breath, nausea, abd pain Review of Systems Review of Systems: All systems reviewed & are unremarkable except as noted in HPI & below Physical Exam Physical Exam: Physical Exam: Vitals signs as noted above General Appearance: Elderly, + resting tremor, no apparent distress Head: normocephalic, Atraumatic Eyes: normal inspection, EOMI Neck: supple, Trachea midline Respiratory/Chest: Normal breath sounds, CTA Cardiovascular: S1, S2, No murmur Abdomen/GI:Soft, Non tender, Bowel sounds present Extremities/Musculoskelatal:normal inspection, no edema Neurologic/Psych:AAOX3, grossly no focal neurological deficits Skin: normal color, warm, midline vertical well-healed surgical scar on chest Results & Data Vital Signs (Past 12 Hours) Vital Signs Temp Pulse Resp BP Pulse Ox 12/16/18 07:11 36.6 C 63 16 120/66 93 Laboratory Results BMP 12/16/18 05:31 Sodium 140 Potassium 3.7 Chloride 106 Carbon Dioxide 30 BUN 9 Creatinine 0.62 Glucose 81 Calcium 8.4 L
[2018-12-16] MEDS: SERTRALINE HCL 50 MG TABLET PO SCH (20:30)
[2018-12-16] MEDS: ATORVASTATIN 40 MG TAB PO SCH (20:31)
[2018-12-16] MEDS: BICALUTAMIDE 50 MG TAB PO SCH (20:31)
[2018-12-16] MEDS: ACETAMINOPHEN 500 MG TAB PO PRN (23:36)
[2018-12-17] MEDS: CARBIDOPA/LEVODOPA 25/100MG TAB PO SCH ×3 (05:52→21:24)
[2018-12-17] MEDS: HEPARIN SOD 5,000 UNIT/0.5 ML VIAL SQ SCH ×3 (05:52→21:21)
[2018-12-17 06:09] LABS: Hematocrit (blood only) 41.8 % (42-52); Hemoglobin 13.7 g/dL (14.0-18.0); Mean Corpuscular Hgb Conc 32.8 g/dL (32-36); Mean Corpuscular Volume 87.8 fL (80-100); Mean Platelet Volume 9.6 fL (7.4-10.4); Platelet Count 146 K/uL (130-400); RDW Coefficient of Variation 14.4 % (11.5-14.5); RDW Standard Deviation 46.3 fL (36.4-46.3); Red Blood Count 4.76 M/uL (4.7-6.1); White Blood Count 5.83 K/uL (4.8-10.8)
[2018-12-17 06:39] LABS: BUN Creatinine Ratio 20.9 (10-20); Calcium 8.1 mg/dl (8.5-10.1); Creatinine Clr Calc Pharmacy 79.6 ml/min; Est GFR (Non-African American) 89.8; Potassium 3.4 mmol/L (3.5-5.1)
[2018-12-17] MEDS: DOCUSATE SODIUM 100 MG CAP PO SCH ×2 (08:26→21:27)
[2018-12-17] MEDS: MYCOPHENOLATE MOFETIL 250 MG CAP PO SCH ×2 (08:26→21:22)
[2018-12-17] MEDS: CLOPIDOGREL BISULFATE 75 MG TAB PO SCH (08:27)
[2018-12-17] MEDS: SACCHAROMYCES BOULARDII 250 MG CAP PO SCH ×2 (08:27→21:22)
[2018-12-17] MEDS: CEROVITE ADV FORMULA TAB PO SCH ×2 (08:27→21:25)
[2018-12-17] MEDS: PANTOprazole 40 MG TAB PO SCH (08:27)
[2018-12-17] MEDS: ISOSORBIDE MONO EXTENDED REL 30 MG TABCR PO SCH (08:27)
[2018-12-17] MEDS: CYANOCOBALAMIN 500 MCG TABLET (VITAMIN B-12) PO SCH (08:27)
[2018-12-17] MEDS: ARTIFICIAL TEARS OP SCH ×4 (08:27→21:19)
[2018-12-17] MEDS: METOPROLOL SUCC 25MG EXT REL TAB PO SCH (08:27)
[2018-12-17] MEDS: FLUDROCORTISONE ACETATE 0.1 MG TAB PO SCH (08:27)
[2018-12-17] MEDS: NIACIN EXTENDED REL 500 MG TABCR PO SCH (08:27)
[2018-12-17] MEDS ORDERED: POTASSIUM CHLORIDE 10 MEQ TABCR PO STA (09:01)
--- NOTE | 2018-12-17 18:16 | Hospitalist Progress Note ---
Date of Service December 17, 2018 Assessment & Plan (1) Paroxysmal atrial fibrillation with rapid ventricular response: Chronic paroxysmal atrial fibrillation First-degree AV block Chronic right bundle branch block No significant bradycardia/Pauses on Monitor Appreciate cardiology input Continue low-dose metoprolol as per cardiology Note on anticoagulation due to high fall risk Needs 2-week Zio equipment monitor phototypesetting arranged as outpatient Continue current meds Dizziness Multiple Falls: In setting of Parkinson's disease with baseline balance issues Positive orthostatics PT OT evaluation Could have multiple systemic atrophy given H/O parkinson's Fall precautions Continue Florinef for orthostatic hypotension Sinemet likely contributing to dizziness Liberalize salt in diet, Teds Appreciate Neurology Input Reports intermittent dizziness Hypokalemia: Replace and monitor electrolytes as needed Parkinson's disease Continue home medications Appreciate neurology input GERD: Continue PPI H/O CAD S/P CABG Continue Plavix, statin, metoprolol, Imdur DVT Px: SCDs CODE STATUS Full code Disposition PT OT: Recommend SNF Plan to discharge once accepted at rehab facility Case management consulted Subjective Patient is seen and examined at bedside Confused intermittently--patient aware that he gets confused, chronic Admits to have hallucinations intermittently, also noted on outpatient records by his neurologist Intermittent dizziness Denies any chest pain, shortness of breath, nausea, abd pain Review of Systems Review of Systems: All systems reviewed & are unremarkable except as noted in HPI & below Physical Exam Physical Exam: Physical Exam: Vitals signs as noted above General Appearance: Elderly, + resting tremor, no apparent distress Head: normocephalic, Atraumatic Eyes: normal inspection, EOMI Neck: supple, Trachea midline Respiratory/Chest: Normal breath sounds, CTA Cardiovascular: S1, S2, No murmur Abdomen/GI:Soft, Non tender, Bowel sounds present Extremities/Musculoskelatal:normal inspection, no edema Neurologic/Psych:AAOX3, grossly no focal neurological deficits Skin: normal color, warm, midline vertical well-healed surgical scar on chest Results & Data Vital Signs (Past 12 Hours) Vital Signs Temp Pulse Resp BP Pulse Ox 12/17/18 14:48 36.5 C 73 18 135/71 99 12/17/18 07:21 36.0 C L 59 L 20 128/67 96 Laboratory Results Short CBC 12/17/18 Range/Units 05:52 WBC 5.83 (4.8-10.8) K/uL Hgb 13.7 L (14.0-18.0) g/dL Hct 41.8 L (42-52) % Plt Count 146 (130-400) K/uL BMP 12/17/18 05:52 Sodium 141 Potassium 3.4 L Chloride 108 H Carbon Dioxide 28 BUN 12 Creatinine 0.60 Glucose 91 Calcium 8.1 L
[2018-12-17] MEDS: BICALUTAMIDE 50 MG TAB PO SCH (21:22)
[2018-12-17] MEDS: ATORVASTATIN 40 MG TAB PO SCH (21:24)
[2018-12-17] MEDS: SERTRALINE HCL 50 MG TABLET PO SCH (21:24)
[2018-12-18] MEDS: HEPARIN SOD 5,000 UNIT/0.5 ML VIAL SQ SCH ×3 (05:33→19:50)
[2018-12-18] MEDS: CARBIDOPA/LEVODOPA 25/100MG TAB PO SCH ×3 (05:33→19:45)
[2018-12-18] MEDS: FLUDROCORTISONE ACETATE 0.1 MG TAB PO SCH (07:46)
[2018-12-18] MEDS: METOPROLOL SUCC 25MG EXT REL TAB PO SCH (07:47)
[2018-12-18] MEDS: NIACIN EXTENDED REL 500 MG TABCR PO SCH (07:47)
[2018-12-18] MEDS: MYCOPHENOLATE MOFETIL 250 MG CAP PO SCH ×2 (07:47→19:47)
[2018-12-18] MEDS: CYANOCOBALAMIN 500 MCG TABLET (VITAMIN B-12) PO SCH (07:48)
[2018-12-18] MEDS: PANTOprazole 40 MG TAB PO SCH (07:48)
[2018-12-18] MEDS: CLOPIDOGREL BISULFATE 75 MG TAB PO SCH (07:48)
[2018-12-18] MEDS: ISOSORBIDE MONO EXTENDED REL 30 MG TABCR PO SCH (07:48)
[2018-12-18] MEDS: SACCHAROMYCES BOULARDII 250 MG CAP PO SCH ×2 (07:48→19:49)
[2018-12-18] MEDS: ARTIFICIAL TEARS OP SCH ×4 (07:48→19:49)
[2018-12-18] MEDS: CEROVITE ADV FORMULA TAB PO SCH ×2 (07:48→19:45)
[2018-12-18] MEDS: DOCUSATE SODIUM 100 MG CAP PO SCH ×2 (07:51→19:49)
[2018-12-18 08:08] LABS: BUN Creatinine Ratio 18.3 (10-20); Calcium 8.4 mg/dl (8.5-10.1); Creatinine Clr Calc Pharmacy 62.8 ml/min; Est GFR (African American) 94.4; Est GFR (Non-African American) 81.5; Potassium 3.7 mmol/L (3.5-5.1)
--- NOTE | 2018-12-18 17:22 | Hospitalist Progress Note ---
Date of Service December 18, 2018 Assessment & Plan (1) Paroxysmal atrial fibrillation with rapid ventricular response: Chronic paroxysmal atrial fibrillation First-degree AV block Chronic right bundle branch block No significant bradycardia/Pauses on Monitor Appreciate cardiology input Continue low-dose metoprolol as per cardiology Note on anticoagulation due to high fall risk Needs 2-week Zio hall monitor arranged as outpatient Continue current meds Dizziness Multiple Falls: In setting of Parkinson's disease with baseline balance issues Positive orthostatics PT OT evaluation Could have multiple systemic atrophy given H/O parkinson's Fall precautions Continue Florinef for orthostatic hypotension Sinemet likely contributing to dizziness Liberalize salt in diet, Teds Appreciate Neurology Input Dizziness seems to be slowly improving after starting Florinef Hypokalemia: Replace and monitor electrolytes as needed Resolved Parkinson's disease Continue home medications Appreciate neurology input GERD: Continue PPI H/O CAD S/P CABG Continue Plavix, statin, metoprolol, Imdur DVT Px: SCDs CODE STATUS Full code Disposition PT OT: Recommend SNF Plan to discharge once accepted at rehab facility Case management consulted Subjective Patient is seen and examined at bedside Mild positional dizziness today Less Confused today No new complaints Chronic hallucinations intermittently, also noted on outpatient records by his neurologist Denies any chest pain, shortness of breath, nausea, abd pain Sitting in chair comfortably Review of Systems Review of Systems: All systems reviewed & are unremarkable except as noted in HPI & below Physical Exam Physical Exam: Physical Exam: Vitals signs as noted above General Appearance: Elderly, + resting tremor, no apparent distress Head: normocephalic, Atraumatic Eyes: normal inspection, EOMI Neck: supple, Trachea midline Respiratory/Chest: Normal breath sounds, CTA Cardiovascular: S1, S2, No murmur Abdomen/GI:Soft, Non tender, Bowel sounds present Extremities/Musculoskelatal:normal inspection, no edema Neurologic/Psych:AAOX3, grossly no focal neurological deficits Skin: normal color, warm, midline vertical well-healed surgical scar on chest Results & Data Vital Signs (Past 12 Hours) Vital Signs Temp Pulse Resp BP Pulse Ox 12/18/18 15:51 36.8 C 56 L 18 133/78 95 12/18/18 07:35 37.0 C 82 17 141/69 H 96 12/18/18 07:28 36.5 C 92 H 18 117/71 97 Laboratory Results [facility] 12/18/18 07:26 Sodium 144 Potassium 3.7 Chloride 109 H Carbon Dioxide 30 BUN 14 Creatinine 0.76 Glucose 88 Calcium 8.4 L
[2018-12-18] MEDS: ATORVASTATIN 40 MG TAB PO SCH (19:44)
[2018-12-18] MEDS: BICALUTAMIDE 50 MG TAB PO SCH (19:45)
[2018-12-18] MEDS: SERTRALINE HCL 50 MG TABLET PO SCH (19:45)
[2018-12-18] MEDS: ACETAMINOPHEN 500 MG TAB PO PRN (19:46)
[2018-12-19] MEDS: CARBIDOPA/LEVODOPA 25/100MG TAB PO SCH ×3 (05:57→20:30)
[2018-12-19] MEDS: HEPARIN SOD 5,000 UNIT/0.5 ML VIAL SQ SCH ×3 (05:57→20:35)
[2018-12-19] MEDS: DOCUSATE SODIUM 100 MG CAP PO SCH ×2 (08:00→21:06)
[2018-12-19] MEDS: CEROVITE ADV FORMULA TAB PO SCH ×2 (08:04→20:33)
[2018-12-19] MEDS: MYCOPHENOLATE MOFETIL 250 MG CAP PO SCH ×2 (08:04→20:32)
[2018-12-19] MEDS: ISOSORBIDE MONO EXTENDED REL 30 MG TABCR PO SCH (08:04)
[2018-12-19] MEDS: FLUDROCORTISONE ACETATE 0.1 MG TAB PO SCH (08:04)
[2018-12-19] MEDS: PANTOprazole 40 MG TAB PO SCH (08:04)
[2018-12-19] MEDS: METOPROLOL SUCC 25MG EXT REL TAB PO SCH (08:05)
[2018-12-19] MEDS: CLOPIDOGREL BISULFATE 75 MG TAB PO SCH (08:05)
[2018-12-19] MEDS: CYANOCOBALAMIN 500 MCG TABLET (VITAMIN B-12) PO SCH (08:06)
[2018-12-19] MEDS: NIACIN EXTENDED REL 500 MG TABCR PO SCH (08:08)
[2018-12-19] MEDS: ARTIFICIAL TEARS OP SCH ×4 (08:09→21:05)
[2018-12-19] MEDS: SACCHAROMYCES BOULARDII 250 MG CAP PO SCH ×2 (09:02→20:31)
[2018-12-19 09:07] LABS: BUN Creatinine Ratio 23.6 (10-20); Calcium 8.2 mg/dl (8.5-10.1); Creatinine Clr Calc Pharmacy 71.3 ml/min; Est GFR (African American) 99.4; Est GFR (Non-African American) 85.8; Potassium 3.2 mmol/L (3.5-5.1)
[2018-12-19] MEDS ORDERED: POTASSIUM CHLORIDE 20 MEQ TABCR PO ONE (12:30)
--- NOTE | 2018-12-19 16:55 | Hospitalist Progress Note ---
Date of Service December 19, 2018 Assessment & Plan (1) Paroxysmal atrial fibrillation with rapid ventricular response: Chronic paroxysmal atrial fibrillation First-degree AV block Chronic right bundle branch block No significant bradycardia/Pauses on Monitor Appreciate cardiology input Continue low-dose metoprolol as per cardiology Note on anticoagulation due to high fall risk Needs 2-week Zio electronic maintenance supervisor arranged as outpatient Dizziness Multiple Falls: In setting of Parkinson's disease with baseline balance issues Positive orthostatics PT OT evaluation Could have multiple systemic atrophy given H/O parkinson's Fall precautions Continue Florinef for orthostatic hypotension Sinemet likely contributing to dizziness Liberalize salt in diet, Teds Appreciate Neurology Input Still has intermittent dizziness Hypokalemia: Replace and monitor electrolytes as needed Parkinson's disease Continue home medications Appreciate neurology input GERD: Continue PPI H/O CAD S/P CABG Continue Plavix, statin, metoprolol, Imdur DVT Px: SCDs CODE STATUS Full code Disposition PT OT: Recommend SNF Plan to discharge once accepted at rehab facility Case management consulted Waiting for Insurance Auth Subjective Patient is seen and examined at bedside Ambulated in hallway today, denies any dizziness Feels tired today No other complaints Chronic hallucinations intermittently, also noted on outpatient records by his neurologist Denies any chest pain, SOB, nausea, abd pain Waiting for placement Review of Systems Review of Systems: All systems reviewed & are unremarkable except as noted in HPI & below Physical Exam Physical Exam: Physical Exam: Vitals signs as noted above General Appearance: Elderly, + resting tremor, no apparent distress Head: normocephalic, Atraumatic Eyes: normal inspection, EOMI Neck: supple, Trachea midline Respiratory/Chest: Normal breath sounds, CTA Cardiovascular: S1, S2, No murmur Abdomen/GI:Soft, Non tender, Bowel sounds present Extremities/Musculoskelatal:normal inspection, no edema Neurologic/Psych:AAOX3, grossly no focal neurological deficits Skin: normal color, warm, midline vertical well-healed surgical scar on chest Results & Data Vital Signs (Past 12 Hours) Vital Signs Temp Pulse Resp BP BP Pulse Ox 12/19/18 15:48 36.4 C L 65 17 94/56 L 94 12/19/18 11:46 36.3 C L 72 20 103/64 97 12/19/18 07:21 36.5 C 60 20 119/58 L 97 Laboratory Results [facility] 07/23/19 07:21 Sodium 142 Potassium 3.2 L Chloride 108 H Carbon Dioxide 27 BUN 16 Creatinine 0.67 Glucose 86 Calcium 8.2 L
[2018-12-19] MEDS: BICALUTAMIDE 50 MG TAB PO SCH (20:31)
[2018-12-19] MEDS: ATORVASTATIN 40 MG TAB PO SCH (20:33)
[2018-12-19] MEDS: SERTRALINE HCL 50 MG TABLET PO SCH (20:34)
[2018-12-19] MEDS: ACETAMINOPHEN 500 MG TAB PO PRN (23:40)
[2018-12-20] MEDS: CARBIDOPA/LEVODOPA 25/100MG TAB PO SCH ×2 (05:23→13:57)
[2018-12-20] MEDS: HEPARIN SOD 5,000 UNIT/0.5 ML VIAL SQ SCH ×2 (05:23→13:58)
[2018-12-20 05:58] LABS: Hematocrit (blood only) 42.9 % (42-52); Hemoglobin 13.8 g/dL (14.0-18.0); Mean Corpuscular Hgb Conc 32.2 g/dL (32-36); Mean Corpuscular Volume 91.1 fL (80-100); Mean Platelet Volume 9.6 fL (7.4-10.4); Platelet Count 158 K/uL (130-400); RDW Coefficient of Variation 14.7 % (11.5-14.5); RDW Standard Deviation 49.1 fL (36.4-46.3); Red Blood Count 4.71 M/uL (4.7-6.1); White Blood Count 6.47 K/uL (4.8-10.8)
[2018-12-20 06:34] LABS: BUN Creatinine Ratio 24.3 (10-20); Calcium 8.1 mg/dl (8.5-10.1); Creatinine Clr Calc Pharmacy 67.2 ml/min; Est GFR (African American) 97.1; Est GFR (Non-African American) 83.8; Potassium 3.6 mmol/L (3.5-5.1)
[2018-12-20] MEDS: DOCUSATE SODIUM 100 MG CAP PO SCH (08:58)
[2018-12-20] MEDS: METOPROLOL SUCC 25MG EXT REL TAB PO SCH (08:59)
[2018-12-20] MEDS: ISOSORBIDE MONO EXTENDED REL 30 MG TABCR PO SCH (08:59)
[2018-12-20] MEDS: CYANOCOBALAMIN 500 MCG TABLET (VITAMIN B-12) PO SCH (08:59)
[2018-12-20] MEDS: CLOPIDOGREL BISULFATE 75 MG TAB PO SCH (08:59)
[2018-12-20] MEDS: PANTOprazole 40 MG TAB PO SCH (09:00)
[2018-12-20] MEDS: CEROVITE ADV FORMULA TAB PO SCH (09:00)
[2018-12-20] MEDS: MYCOPHENOLATE MOFETIL 250 MG CAP PO SCH (09:07)
[2018-12-20] MEDS: FLUDROCORTISONE ACETATE 0.1 MG TAB PO SCH (09:07)
[2018-12-20] MEDS: SACCHAROMYCES BOULARDII 250 MG CAP PO SCH (09:08)
[2018-12-20] MEDS: NIACIN EXTENDED REL 500 MG TABCR PO SCH (09:09)
[2018-12-20] MEDS: ARTIFICIAL TEARS OP SCH ×2 (09:09→13:57)
--- NOTE | 2018-12-20 09:32 | Hospitalist Progress Note ---
Date of Service December 20, 2018 Assessment & Plan (1) Paroxysmal atrial fibrillation with rapid ventricular response: Chronic paroxysmal atrial fibrillation First-degree AV block Chronic right bundle branch block No significant bradycardia/Pauses on Monitor Appreciate cardiology input Continue low-dose metoprolol as per cardiology Note on anticoagulation due to high fall risk Needs 2-week Zio awake overnight monitor arranged as outpatient Dizziness Multiple Falls: In setting of Parkinson's disease with baseline balance issues Positive orthostatics Could have multiple systemic atrophy given H/O parkinson's Fall precautions Continue Florinef for orthostatic hypotension Sinemet likely contributing to dizziness as well Liberalize salt in diet, Teds Appreciate Neurology Input Plan to discharge to SNF when accepted Hypokalemia: Resolved Replace electrolytes as needed Parkinson's disease Continue home medications Appreciate neurology input GERD: Continue PPI H/O CAD S/P CABG Continue Plavix, statin, metoprolol, Imdur DVT Px: SCDs CODE STATUS Full code Disposition Plan to discharge to SNF when accepted Case management following Subjective Patient is seen and examined at bedside Doing well today His appetite improved Having breakfast this morning No dizziness today Chronic hallucinations intermittently, also noted on outpatient records by his neurologist Denies any chest pain, SOB, nausea, abd pain Review of Systems Review of Systems: All systems reviewed & are unremarkable except as noted in HPI & below Physical Exam Physical Exam: Physical Exam: Vitals signs as noted above General Appearance: Elderly, + resting tremor, no apparent distress Head: normocephalic, Atraumatic Eyes: normal inspection, EOMI Neck: supple, Trachea midline Respiratory/Chest: Normal breath sounds, CTA Cardiovascular: S1, S2, No murmur Abdomen/GI:Soft, Non tender, Bowel sounds present Extremities/Musculoskelatal:normal inspection, no edema Neurologic/Psych:AAOX3, grossly no focal neurological deficits Skin: normal color, warm, midline vertical well-healed surgical scar on chest Results & Data Vital Signs (Past 12 Hours) Vital Signs Temp Pulse Resp BP BP Pulse Ox 12/20/18 07:01 36.0 C L 81 20 103/58 L 92 12/19/18 23:48 36.7 C 84 20 114/70 95 Laboratory Results Short CBC 12/20/18 Range/Units 05:47 WBC 6.47 (4.8-10.8) K/uL Hgb 13.8 L (14.0-18.0) g/dL Hct 42.9 (42-52) % Plt Count 158 (130-400) K/uL BMP 12/20/18 05:47 Sodium 146 H Potassium 3.6 Chloride 112 H Carbon Dioxide 30 BUN 17 Creatinine 0.71 Glucose 99 Calcium 8.1 L
--- NOTE | 2018-12-20 09:47 | Discharge Summary ---
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 Patient resides at [facility] and has been falling recently. He had a cold about 2 days ago possible pneumonia last week complains to me of having nausea. He also complained of dizziness to me which was getting worse over the last couple days. In the emergency room he was found to be in atrial fibrillation, but when I saw him he was in sinus rhythm with PACs and PVCs. I looked at the 2 previous EKGs which did show atrial fibrillation. Possibly could be having atrial fibrillation intermittently causing him to fall when he loses atrial kick. He will be placed under observation likely to be here less than 2 Past medical historyherpes ophthalmicus, coronary artery disease requiring a CABG, benign prostatic hypertrophy plus or minus prostate cancer Past surgical historyTURP, four-vessel CABG, tonsillectomy, scrotal hernia repair Family history-mother of coronary disease father of a stroke Primary Care Provider: [place] Principal Diagnosis Discharge Information Discharge Diagnosis Paroxysmal atrial fibrillation with rapid ventricular response Dizziness Orthostatic hypotension Hypokalemia Parkinson's disease Discharge Goals Decrease discomfort,Improve disease control, Improve function Discharge Activity Limitations Resume your previous activity Discharge Data Allergies Allergy/AdvReac Type Severity Reaction Status Date / Time morphine AdvReac Unknown Unknown Unverified 12/14/18 01:34 Consultations 12/14/18 02:32 ED Decision to Admit Stat 12/14/18 07:32 Consult Cardiology Routine 12/14/18 14:01 Consult Case Management - Discharge Planning Routine 12/15/18 12:32 Consult Neurology Routine Procedures Performed Pelvic X ray: No acute fracture within the pelvis or hips. CT Head: 1. No acute intracranial findings. 2. No calvarial fracture. CXR: No acute cardiopulmonary findings. No change in appearance of the chest. Neck CT: 1. No acute osseous injury. 2. Multilevel degenerative changes. Ordered Studies 12/14/18 00:12 CT cervical spine wo con Urgent CT head/brain wo con Urgent Hospital Course (1) Paroxysmal atrial fibrillation with rapid ventricular response: Chronic paroxysmal atrial fibrillation First-degree AV block Chronic right bundle branch block No significant bradycardia/Pauses on Monitor Appreciate cardiology input Continue low-dose metoprolol as per cardiology Note on anticoagulation due to high fall risk Needs 2-week Zio cardiac cath technician arranged as outpatient Dizziness Multiple Falls: In setting of Parkinson's disease with baseline balance issues Positive orthostatics Could have multiple systemic atrophy given H/O parkinson's Fall precautions Continue Florinef for orthostatic hypotension Sinemet likely contributing to dizziness as well Liberalize salt in diet, Teds Appreciate Neurology Input Plan to discharge to SNF when accepted Hypokalemia: Resolved Replace electrolytes as needed Parkinson's disease Continue home medications Appreciate neurology input GERD: Continue PPI H/O CAD S/P CABG Continue Plavix, statin, metoprolol, Imdur DVT Px: SCDs CODE STATUS Full code Disposition Plan to discharge to SNF when accepted Case management following Total Time Total Time Spent Total Time Spent (In Minutes): 38 minutes Total Time Includes: Examination of the Patient, Discharge Planning, Medication Reconciliation, Communication With Other Providers and Other Discharge Plan Discharge Items Patient Disposition: Transfer Residential Fac Reason For Visit: INTERMITTENT ATRIAL FIBRILLATION, FALLS, WEAKNESS Discharge Diagnosis: Paroxysmal atrial fibrillation with rapid ventricular respo nse Dizziness Orthostatic hypotension Hypokalemia Parkinson's disease Discharge Goals: Decrease discomfort, Improve disease control and Improve function Activity: Resume your previous activity Lifting: Gradually increase as tolerated Non-emergency contact: Primary Care Provider, [facility] and Neurologist Call non-emergency contact if: you have any medication questions, your symptoms worsen, your pain is not controlled, your pain is worsening, your pain is u nusual for you and you have a fever Follow-up/Referrals: STEVEN, [Primary Care Provider] - Diet: Regular Addtl Provider Instructions: Follow-up with your primary care physician in 1 week after being discharged from rehab facility Follow-up with your neurologist Dr. Herzog in 4 to 6 weeks Get 14-day ZIO cardiac cath technician as outpatient as recommended by your asphalt roller person Dr. Mixon Seek immediate medical attention if your symptoms reoccur or worsen Prescriptions: New fludrocortisone 0.1 mg Tablet 0.1 mg PO QAM 30 Days Qty: 30 RF: 0 Continued atorvastatin 40 mg Tablet 40 mg PO HS RF: 0 bicalutamide 50 mg Tablet 50 mg PO QPM RF: 0 isosorbide mononitrate 30 mg Tablet Extended Release 24 Hr 30 mg PO QAM RF: 0 alendronate [Fosamax] 70 mg Tablet 70 mg PO WK RF: 0 cyanocobalamin (vitamin B-12) [Vitamin B-12] 1,000 mcg Tablet 1,000 mcg PO QAM RF: 0 melatonin 3 mg Tablet 3 mg PO HS RF: 0 clopidogrel [Plavix] 75 mg Tablet 75 mg PO QAM RF: 0 acetaminophen [Acetaminophen Extra Strength] 500 mg Tablet 500 mg PO Q4H MDD 3g/24hr PRN (Reason: Pain) RF: 0 mycophenolate mofetil 500 mg Tablet 1,000 mg PO Q12H RF: 0 nitroglycerin [Nitrostat] 0.4 mg Tablet, Sublingual 0.4 mg Sublingual DIRECTED PRN (Reason: Chest Pain) RF: 0 docusate sodium [Colace] 100 mg Capsule 100 mg PO BID RF: 0 omeprazole 20 mg Capsule,Delayed Release(Dr/Ec) 20 mg PO QAM RF: 0 metoprolol succinate 25 mg Tablet Extended Release 24 Hr 12.5 mg PO QAM RF: 0 carbidopa-levodopa [Sinemet] 25-100 mg Tablet 1 tab PO Q8H RF: 0 sertraline [Zoloft] 50 mg Tablet 50 mg PO HS RF: 0 Artificial Tears (PF) Dropperette 1 drp OPB QID RF: 0 Florastor 250 mg Capsule 250 mg PO BID RF: 0 niacin 500 mg Tablet Extended Release 500 mg PO QAM RF: 0 PreserVision AREDS-2 [id number] Capsule 1 tab PO AMHS RF: 0 loperamide 2 mg Capsule 2 mg PO Q4 PRN (Reason: Diarrhea) RF: 0 Stand-Alone Forms: [facility] Discharge Orders: Discharge Order (Routine); Ordered 12/20/18 Ordered By: Wild Kim Skilled Items Patient informed of condition?: Yes DNR: No Discharge Level of Care: Skilled Communicable Disease: No Discharge Prognosis: Improving Admission Data Admit Date/Time: 12/15/18 15:37 Attending Provider: Wild Kim Admit Provider: Neftali Duran Primary Care Provider: Kaci HARRIS Providers: Neftali Duran ; Maciel Mixon ; Jcarlos Sevilla Service: Telemetry Other Pending Studies at Discharge: No
== END 2018-12-20 16:03 | disposition home health service (06) | DRG 309 ==
LOC: 1E 00:03 → ED 00:03 → 1E 04:01 → 2E 22:01 → SUATTDRO 12-15 15:37 → 2W 12-16 10:25

== ENCOUNTER 2019-07-21 15:00 | Observation (INO) ==
--- NOTE | 2019-07-21 15:46 | XRay Report ---
XR chest 1V not portable CLINICAL HISTORY: Chest Pain dyspnea COMPARISON STUDY: 07/16/2019 FINDINGS: Findings are prior median sternotomy. Chronic pleural reactive change and diaphragmatic sca rring right lung base. No change from the prior exam. No acute process. IMPRESSION: Chronic and postoperative change. No acute process. ACT 112: Negative or not required by law. The above report was generated using voice recognition software. It may contain grammatical, syntax or spelling errors. Electronically signed by: Fidel Yuen M.D. 07/21/2019 3:44 PM
--- NOTE | 2019-07-21 15:47 | XRay Report ---
XR hip LT 2V w pelvis CLINICAL HISTORY: fall, left hip pain trauma. Pain. COMPARISON: 06/30/2019 DISCUSSION: Generalized degenerative change. No evidence for fracture or dislocation. No evidence for acetabular protrusion. There is no evidence for soft tissue swelling. IMPRESSION: Degenerative change. No acute process. No change as compared to the prior exam. ACT 112: Negative or not required by law. The above report was generated using voice recognition software. It may contain grammatical, syntax or spelling errors. Electronically signed by: Fidel Yuen M.D. 07/21/2019 3:45 PM
--- NOTE | 2019-07-21 16:05 | Emergency Department Note ---
Entered by Sanya Hawkins acting as a scribe for Adi Block MD History of Present Illness General Chief complaint: Fall Stated complaint: FALL, HIP PAIN Time Seen by Provider: 07/21/19 15:04 Source: patient History of Present Illness Onset (ago): hour(s) 1 Location: hip (fall) Pain Consistency: + other (episode) Relieved By: + none Associated symptoms: + denies other symptoms (back pain, abdominal pain) and + other (left hip pain); no chest pain and no shortness of breath The patient is a 88 year old M who presents to the Emergency Room with complaints of an episode of a fall that occurred 1 hour ago. The patient states that he lives at the [facility]. He notes that he went to use the toilet, today. He states that he was backing up to sit on the toilet but misjudged how far back he was. He adds that he ended up falling and landed on his left hip. He denies that he hit his head from the fall. He notes that he was laying on the ground for 30 minutes until he was helped off of the ground. He states that he is currently experiencing left hip pain. He denies that he is currently experiencing chest pain, back pain, shortness of breath, and abdominal pain. He states that he has a history of Parkinsons and hallucinations. A review of the patients past medical records show that the patient was in the ED on the for slurred speech and hypoglycemia. Home Medications Home Medications Medication Instructions Recorded Confirmed Type Artificial Tears (PF) 1 drp OPB QID 08/06/18 07/21/19 History Florastor 250 mg PO BID 08/06/18 07/21/19 History PreserVision AREDS-2 1 tab PO BID 08/06/18 07/21/19 History acetaminophen [Acetaminophen Extra 500 mg PO Q4H PRN MDD 3g/24hr 08/06/18 07/21/19 History Strength] alendronate [Fosamax] 70 mg PO REYNAGA 08/06/18 07/21/19 History atorvastatin [Lipitor] 40 mg PO HS 08/06/18 07/21/19 History bicalutamide 50 mg PO DAILY@1700 08/06/18 07/21/19 History carbidopa-levodopa [Sinemet] 1 tab PO QID 08/06/18 07/21/19 History clopidogrel [Plavix] 75 mg PO QAM 08/06/18 07/21/19 History docusate sodium [Colace] 100 mg PO BID PRN 08/06/18 07/21/19 History melatonin 3 mg PO HS 08/06/18 07/21/19 History mycophenolate mofetil 1,000 mg PO Q12H 08/06/18 07/21/19 History nitroglycerin [Nitrostat] 0.4 mg SUBLINGUAL DIRECTED PRN 08/06/18 07/21/19 History omeprazole 20 mg PO QAM 08/06/18 07/21/19 History sertraline [Zoloft] 50 mg PO HS 08/06/18 07/21/19 History loperamide 2 mg PO Q4 PRN 12/14/18 07/21/19 History fludrocortisone 0.1 mg PO QAM 03/09/19 07/21/19 History acetaminophen 650 mg PO Q4H PRN MDD 3G 06/30/19 07/21/19 History cyanocobalamin (vitamin B-12) 1,000 mcg PO QAM 06/30/19 07/21/19 History [Vitamin B-12] food supplemt, lactose-reduced 1 ea PO TID 06/30/19 07/21/19 History [Ensure] potassium chloride 10 meq PO BID 06/30/19 07/21/19 History psyllium husk (with sugar) 1 wafer PO QAM 06/30/19 07/21/19 History [Metamucil Fiber Thin] Allergies Allergy/AdvReac Type Severity Reaction Status Date / Time morphine AdvReac Unknown Unknown Verified 06/30/19 08:12 Past Med/Surg History Social History Preferred Language: Uzbek Communication Ability: Effective Rx Specialist Required: No Beliefs That Will Affect Care: None Current Living Situation: Personal Care Facility Feels Safe at Home: Yes Safety Concerns: Feels Safe At This Time Smoking Status: Never smoker Do You Dip or Chew Tobacco: No ; Second Hand Exposure: No ; Tobacco Cessation Education Requested by Patient: No Hx Alcohol Use: No Hx Substance Use: No Review of Systems See HPI for pertinent positives & negatives. and A total of 10 systems reviewed and were otherwise negative Physical Exam Vital Signs Vital Signs - 24 hr 07/21/19 15:00 07/21/19 15:09 07/21/19 16:00 Temperature 36.5 C Temperature Source Oral Pulse Rate 70 68 70 Pulse Rate from SpO2 Sensor 66 71 Pulse Rhythm Regular Pulse Strength Normal Respiratory Rate 22 13 13 Respiratory Effort / Characteristics Non-Labored Spontaneous Respiratory Depth Normal Respiratory Pattern Regular Blood Pressure 147/87 H 147/87 H 170/86 H Blood Pressure Mean 107 104 120 Blood Pressure Position Lying Pulse Oximetry 97 97 97 Oxygen Delivery Method Room Air Sepsis Recent Fever Within 48 Hours No Sepsis New/Unexplained Change in Mental Status No Sepsis Action Taken by Nursing No Action Required 07/21/19 16:30 07/21/19 17:00 07/21/19 18:00 Temperature Temperature Source Pulse Rate 66 67 69 Pulse Rate from SpO2 Sensor 67 65 69 Pulse Rhythm Pulse Strength Respiratory Rate 15 7 L 17 Respiratory Effort / Characteristics Respiratory Depth Respiratory Pattern Blood Pressure 134/72 114/56 L Blood Pressure Mean 82 63 Blood Pressure Position Pulse Oximetry 97 95 98 Oxygen Delivery Method Sepsis Recent Fever Within 48 Hours Sepsis New/Unexplained Change in Mental Status Sepsis Action Taken by Nursing 07/21/19 18:01 Temperature Temperature Source Pulse Rate 70 Pulse Rate from SpO2 Sensor 72 Pulse Rhythm Pulse Strength Respiratory Rate 19 Respiratory Effort / Characteristics Respiratory Depth Respiratory Pattern Blood Pressure 112/63 Blood Pressure Mean 78 Blood Pressure Position Pulse Oximetry 99 Oxygen Delivery Method Sepsis Recent Fever Within 48 Hours Sepsis New/Unexplained Change in Mental Status Sepsis Action Taken by Nursing General: Chronically ill appearing older male in no acute distress. HEENT: Normal cephalic atraumatic. Pupils are equal round and reactive to light. Extraocular movements are intact. Oropharynx is pink with moist mucous membranes. No swelling of the mouth lips or tongue. Neck: Supple with a midline trachea. No meningeal signs or stiffness, no JVD or bruits. No Stridor. Chest: Clear to auscultation bilaterally. No wheezes or rhonchi. No increased work of breathing. Healing bruise on left chest, not tender. Scar from previous thoracotomy. Heart: regular rate and rhythm. Abdomen: Soft nontender, nondistended without rebound guarding or rigidity. Extremities: No cyanosis clubbing or edema. No calf tenderness or asymmetry. Minimal tenderness laterally to left hip, FROM of the leg, no shortening or deformity. Healing bruise on left krishna. Spine/Back. Non tender to palpation. No CVA tenderness Skin: Good turgor without rashes. Neurologic exam: Cranial nerves two through 12 are intact. Motor and sensation are intact and symmetrical throughout. Course Course 1503: The patient was evaluated in room A11B. A complete history and physical exam was performed. 172: The patient is resting comfortably. The patient will be admitted. 172: I reviewed the patient's case with Dr. Brian Aguilar, [facility] Hospitalist. He will evaluate the patient for further management. Administered Medications Atorvastatin Calcium (Lipitor) 40 mg PO HS SALAS Stop: 08/20/19 20:59 Last Admin: 07/21/19 21:42 Dose: 40 mg Documented by: [id number] Bicalutamide (Casodex) 50 mg PO DAILY@1700 SALAS Stop: 08/20/19 20:59 Last Admin: 07/21/19 21:43 Dose: 50 mg Documented by: [id number] Cosigned by: [id number] Carbidopa/Levodopa (Sinemet 25/100 Mg) 1 tab PO QID SALAS Stop: 08/20/19 20:59 Last Admin: 07/21/19 21:44 Dose: 1 tab Documented by: [id number] Mycophenolate Mofetil (Cellcept) 1,000 mg PO Q12H SALAS Stop: 08/20/19 20:59 Last Admin: 07/21/19 21:44 Dose: 1,000 mg Documented by: [id number] Sertraline HCl (Zoloft) 50 mg PO HS SALAS Stop: 08/20/19 20:59 Last Admin: 07/21/19 21:44 Dose: 50 mg Documented by: [id number] Medical Decision Making Differential Diagnosis Differential diagnosis includes: hip fracture, contusion, syncope, metabolic/kelly ctrolyte abnormality, Parkinsons complication, infection Medical Records Attestation: I reviewed the patient's medical records. Home Medications Current Medication List: was personally reviewed by me Laboratory Data Attestation: I reviewed the patient's lab results. Result diagrams: 07/21/19 16:30 07/21/19 16:30 Lab Results 07/21/19 07/21/19 07/21/19 Range/Units 16:30 16:30 16:30 WBC 6.54 (4.8-10.8) K/uL RBC 4.50 L (4.7-6.1) M/uL Hgb 13.0 L (14.0-18.0) g/dL Hct 40.5 L (42-52) % MCV 90.0 (80-100) fL MCH 28.9 (25-34) pg MCHC 32.1 (32-36) g/dL RDW Std Deviation 47.7 H (36.4-46.3) fL RDW Coeff of Aida 14.6 H (11.5-14.5) % Plt Count 171 (130-400) K/uL MPV 9.5 (7.4-10.4) fL Immature Gran % (Auto) 0.2 % Neut % (Auto) 68.2 % Lymph % (Auto) 21.4 % [place] % (Auto) 8.1 % Eos % (Auto) 1.8 % Baso % (Auto) 0.3 % Immature Gran # (Auto) 0.01 (0.00-0.02) K/uL Neut # (Auto) 4.46 (1.4-6.5) K/uL Lymph # (Auto) 1.40 (1.2-3.4) K/uL [place] # (Auto) 0.53 (0.11-0.59) K/uL Eos # (Auto) 0.12 (0-0.5) K/uL Baso # (Auto) 0.02 (0-0.2) K/uL PT 11.9 (9.0-12.0) Seconds INR 1.2 H (0.9-1.1) APTT 24.5 (21.0-31.0) Seconds PTT Ratio 0.9 Sodium 141 (136-145) mmol/L Potassium 3.7 (3.5-5.1) mmol/L Chloride 106 (98-107) mmol/L Carbon Dioxide 32 (21-32) mmol/L Anion Gap 3.0 (3-11) BUN 13 (7-18) mg/dl Creatinine 0.64 (0.6-1.4) mg/dl Est Cr Clr Drug Dosing 74.6 ml/min Est GFR ( Amer) 101.3 Est GFR (Non-Af Amer) 87.4 BUN/Creatinine Ratio 19.7 (10-20) Glucose 86 (70-99) mg/dl Calcium 8.8 (8.5-10.1) mg/dl Total Bilirubin 0.6 (0.2-1) mg/dl AST 13 L (15-37) U/L ALT 9 L (12-78) U/L Alkaline Phosphatase 110 (45-117) U/L Troponin I 0.024 (0-0.045) ng/ml Total Protein 6.5 (6.4-8.2) gm/dl Albumin 3.5 (3.4-5.0) gm/dl Globulin 3.0 (2.5-4.0) gm/dl Albumin/Globulin Ratio 1.2 (0.9-2) Lipase 144 (73-393) U/L Urine Color Urine Appearance (Clear) Urine pH (4.5-7.5) Ur Specific [place] (1.000-1.030) Urine Protein (Negative) Urine Glucose (UA) (Negative) Urine Ketones (Negative) Urine Blood (Negative) Urine Nitrite (Negative) Urine Bilirubin (Negative) Urine Urobilinogen (Negative) Ur Leukocyte Esterase (Negative) 07/21/19 Range/Units 17:30 WBC (4.8-10.8) K/uL RBC (4.7-6.1) M/uL Hgb (14.0-18.0) g/dL Hct (42-52) % MCV (80-100) fL MCH (25-34) pg MCHC (32-36) g/dL RDW Std Deviation (36.4-46.3) fL RDW Coeff of Aida (11.5-14.5) % Plt Count (130-400) K/uL MPV (7.4-10.4) fL Immature Gran % (Auto) % Neut % (Auto) % Lymph % (Auto) % [place] % (Auto) % Eos % (Auto) % Baso % (Auto) % Immature Gran # (Auto) (0.00-0.02) K/uL Neut # (Auto) (1.4-6.5) K/uL Lymph # (Auto) (1.2-3.4) K/uL [place] # (Auto) (0.11-0.59) K/uL Eos # (Auto) (0-0.5) K/uL Baso # (Auto) (0-0.2) K/uL PT (9.0-12.0) Seconds INR (0.9-1.1) APTT (21.0-31.0) Seconds PTT Ratio Sodium (136-145) mmol/L Potassium (3.5-5.1) mmol/L Chloride (98-107) mmol/L Carbon Dioxide (21-32) mmol/L Anion Gap (3-11) BUN (7-18) mg/dl Creatinine (0.6-1.4) mg/dl Est Cr Clr Drug Dosing ml/min Est GFR ( Amer) Est GFR (Non-Af Amer) BUN/Creatinine Ratio (10-20) Glucose (70-99) mg/dl Calcium (8.5-10.1) mg/dl Total Bilirubin (0.2-1) mg/dl AST (15-37) U/L ALT (12-78) U/L Alkaline Phosphatase (45-117) U/L Troponin I (0-0.045) ng/ml Total Protein (6.4-8.2) gm/dl Albumin (3.4-5.0) gm/dl Globulin (2.5-4.0) gm/dl Albumin/Globulin Ratio (0.9-2) Lipase (73-393) U/L Urine Color Yellow Urine Appearance Clear (Clear) Urine pH 7.5 (4.5-7.5) Ur Specific [place] 1.009 (1.000-1.030) Urine Protein Negative (Negative) Urine Glucose (UA) Negative (Negative) Urine Ketones Negative (Negative) Urine Blood Negative (Negative) Urine Nitrite Negative (Negative) Urine Bilirubin Negative (Negative) Urine Urobilinogen Negative (Negative) Ur Leukocyte Esterase Negative (Negative) Imaging Data Radiologist's Impression: Radiology results as stated below per my review and the radiologist's interpretation: XR chest 1V not portable CLINICAL HISTORY: Chest Pain dyspnea COMPARISON STUDY: 07/16/2019 FINDINGS: Findings are prior median sternotomy. Chronic pleural reactive change and diaphragmatic scarring right lung base. No change from the prior exam. No acute process. IMPRESSION: Chronic and postoperative change. No acute process. ACT 112: Negative or not required by law. The above report was generated using voice recognition software. It may contain grammatical, syntax or spelling errors. Electronically signed by: Fidel Yuen M.D. 07/21/2019 3:44 PM XR hip LT 2V w pelvis CLINICAL HISTORY: fall, left hip pain trauma. Pain. COMPARISON: 06/30/2019 DISCUSSION: Generalized degenerative change. No evidence for fracture or dislocation. No evidence for acetabular protrusion. There is no evidence for soft tissue swelling. IMPRESSION: Degenerative change. No acute process. No change as compared to the prior exam. ACT 112: Negative or not required by law. The above report was generated using voice recognition software. It may contain grammatical, syntax or spelling errors. Electronically signed by: Fidel Yuen M.D. 07/21/2019 3:45 PM ECG Data Attestation: I personally reviewed and interpreted this ECG as follows: Indication: + other (fall) Rate (beats per minute): 68 Rhythm: + atrial fibrillation ECG Intervals/blocks: + Right Bundle branch block ECG ST segments: no ST depression and no ST elevation Comparison ECG Date: from (07/16/19) Change: no significant change Blood Pressure Blood Pressure Findings: Low blood pressure Blood Pressure Disposition: further management by hospitalist [facility] Narrative This patient comes in after suffered a mechanical fall injuring his left hip he does have a history of Parkinson's disease. He was seen here about 5 days ago after he had some confusion he does not seem confused at all today. he has no complaints with exception of some minimal left hip pain is not shortened or deformed. He has an old bruise on his chest and his leg. He has no chest pain or shortness of breath. IV access was established, blood work was obtained. EKG was obtained as well as x-rays. He was reassessed frequently. I discussed the case with Adi, her case management manager to determine his level of care that he is receiving right now at the [facility], as he has had 3 visits this month to the ER. Our case management manager, did call the [facility] and apparently they are trying to get him signed up for hospice. X-rays of his hip and chest are negative. He has no white count or fever to suggest infection. He is not anemic. I do think that he needs to be admitted/observe for likely placement as he is not safe to go home to the current situation. I have consulted the [facility] hospitalist to see her for these measures. Impression & Plan Weakness, Parkinsons, Frequent falls, Contusion of hip, left Discharge Plan Visit Data *Final* Discharge Date/Time: 02/22/20 20:00 Chief Complaint: Fall Stated Complaint: FALL, HIP PAIN ED Provider: Adi Block Discharge Problem: Weakness, Parkinsons, Frequent falls, Contusion of hip, left Patient Disposition: Admitted As Inpatient Discharge Instructions Interventions: ED Discharge Assessment Last Done: 07/21/19 20:00 Discharge Problem: Contusion of hip, left Qualifiers: Encounter type: initial encounter Qualified Code(s): S70.02XA - Contusion of left hip, initial encounter The scribe's documentation has been prepared under my direction and personally reviewed by me in its entirety. I confirm that the note above accurately reflects all work, treatment, procedures, and medical decision making performed by me.
[2019-07-21 16:49] LABS: Basophils # (auto) 0.02 K/uL (0-0.2); Basophils % (auto) 0.3 %; Eosinophils # (auto) 0.12 K/uL (0-0.5); Eosinophils % (auto) 1.8 %; Hematocrit (blood only) 40.5 % (42-52); Immature Granulocytes # (auto) 0.01 K/uL (0.00-0.02); Immature Granulocytes % (auto) 0.2 %; Lymphocytes % (auto) 21.4 %; Mean Corpuscular Hemoglobin 28.9 pg (25-34); Mean Corpuscular Hgb Conc 32.1 g/dL (32-36); Mean Platelet Volume 9.5 fL (7.4-10.4); Monocytes # (auto) 0.53 K/uL (0.11-0.59); Monocytes % (auto) 8.1 %; Neutrophils # (auto) 4.46 K/uL (1.4-6.5); Neutrophils % (auto) 68.2 %; Platelet Count 171 K/uL (130-400); RDW Coefficient of Variation 14.6 % (11.5-14.5); RDW Standard Deviation 47.7 fL (36.4-46.3); White Blood Count 6.54 K/uL (4.8-10.8)
[2019-07-21 16:59] LABS: INR 1.2 (0.9-1.1); Partial Thromboplastin Ratio 0.9; Partial Thromboplastin Time 24.5 Seconds (21.0-31.0); Prothrombin Time 11.9 Seconds (9.0-12.0)
[2019-07-21 17:09] LABS: Albumin Level 3.5 gm/dl (3.4-5.0); BUN Creatinine Ratio 19.7 (10-20); Calcium 8.8 mg/dl (8.5-10.1); Creatinine Clr Calc Pharmacy 74.6 ml/min; Est GFR (African American) 101.3; Est GFR (Non-African American) 87.4; Potassium 3.7 mmol/L (3.5-5.1)
[2019-07-21 17:14] LABS: Albumin Globulin Ratio 1.2 (0.9-2); Bilirubin,Total 0.6 mg/dl (0.2-1); Total Protein 6.5 gm/dl (6.4-8.2); Troponin I 0.024 ng/ml (0-0.045)
[2019-07-21 17:46] LABS: Appearance Urine Clear (Clear); Bilirubin Urine Negative (Negative); Blood Urine Negative (Negative); Color Urine Yellow; Glucose Urine UA Negative (Negative); Ketones Urine Negative (Negative); Leukocyte Esterase Urine Negative (Negative); Nitrite Urine Negative (Negative); Protein Urine Negative (Negative); Specific Gravity Urine 1.009 (1.000-1.030); Urobilinogen Urine Negative (Negative); pH Urine 7.5 (4.5-7.5)
--- NOTE | 2019-07-21 18:22 | History & Physical Report ---
Date of Service July 21, 2019 Assessment & Plan (1) Frequent falls: Patient has been having recurrent falls. The details of the previous falls is unknown but at least the one today sounds mechanical. He did not have any lightheadedness or dizziness and he did not pass out when he fell. He does have history of orthostatic hypotension but again he did not complain of any dizziness when he fell today. Will check orthostatic vital signs nevertheless. Wonder if his frequent falls are due to worsening Parkinson's disease. We will continue Sinemet for now. Consider neurology evaluation. PT/OT consults are requested. As stated above ER requested admission because of his frequent ER visits due to falls and the question whether he needs to go to a care home rather than personal-nursing home. Of note the patient is on mycophenolate. I am unable to figure out the indication for this. The patient does not know why he is on this but per review of the MAR sent from the [place] he has been getting it. We will continue for now. (2) Parkinsons: Continue Sinemet (3) Dyslipidemia, goal LDL below 70: Continue statin (4) Prostate cancer: Continue bicalutamide (5) Orthostatic hypotension: Continue fludrocortisone (6) Diarrhea: The patient has also complained of diarrhea which he states is chronic. His abdominal exam is benign. Per review of the MAR sent from [place], it appears that he was treated with Keflex for 5 days and finished it on 07/19. This was probably for cellulitis of the left leg. He still has some redness in the left leg but it was not tender. Given recent antibiotics and complains of diarrhea, will check for C. difficile. History of Present Illness Chief Complaint: Fall Primary Care Provider: RONNA This is an 88-year-old male with history of coronary artery disease status post CABG 1998, MARBIN to SVG 2014, hypertension, dyslipidemia, atrial fibrillation not on anticoagulation, prostate cancer status post radical prostatectomy several years ago and bladder cancer status post fulguration 2018 who was brought to the ER because of a fall. He has been a resident of [facility] assisted living for the past 3 years and lived in [facility] for 2 years before that. He also has Parkinson's disease and has been having frequent falls particularly in the past month. Per the ER provider this is his third visit to the ER this month because of fall. The patient stated that he was going to the bathroom and while sitting on the toilet he just missed it and landed on the floor. He was unable to get up and called for help. The staff helped him up and send him to the ER to be evaluated. X-rays and blood work did not show any new or notable abnormality. But because of this frequent falling, he was asked to be admitted to medicine for PT/OT and for possible placement to a facility where he can get more help. The patient denies any fever or chills. He denies any chest pain or shortness of breath. He also denied any abdominal pain but stated that he has been having diarrhea. He stated that the diarrhea has been on and off for the past 3 years. He can have up to 5 or 6 loose stools a day. Speaking with the [facility] living, they stated that he may have been having diarrhea but up to 1-2 bowel once a day only. He denied any nausea or vomiting and stated that his oral intake has been okay. Regarding the fall he said that sometimes he feels dizzy when he stands up but he uses his walker every time he is walking and today when he fell he was using a walker. He denied any lightheadedness today when he fell. He did not hit his head. Allergies Allergy/AdvReac Type Severity Reaction Status Date / Time morphine AdvReac Unknown Unknown Verified 06/30/19 08:12 Home Medications Home Medications Medication Instructions Recorded Confirmed Type Artificial Tears (PF) 1 drp OPB QID 08/06/18 07/21/19 History Florastor 250 mg PO BID 08/06/18 07/21/19 History PreserVision AREDS-2 1 tab PO BID 08/06/18 07/21/19 History acetaminophen [Acetaminophen Extra 500 mg PO Q4H PRN MDD 3g/24hr 08/06/18 07/21/19 History Strength] alendronate [Fosamax] 70 mg PO REYNAGA 08/06/18 07/21/19 History atorvastatin [Lipitor] 40 mg PO HS 08/06/18 07/21/19 History bicalutamide 50 mg PO DAILY@1700 08/06/18 07/21/19 History carbidopa-levodopa [Sinemet] 1 tab PO QID 08/06/18 07/21/19 History clopidogrel [Plavix] 75 mg PO QAM 08/06/18 07/21/19 History docusate sodium [Colace] 100 mg PO BID PRN 08/06/18 07/21/19 History melatonin 3 mg PO HS 08/06/18 07/21/19 History mycophenolate mofetil 1,000 mg PO Q12H 08/06/18 07/21/19 History nitroglycerin [Nitrostat] 0.4 mg SUBLINGUAL DIRECTED PRN 08/06/18 07/21/19 History omeprazole 20 mg PO QAM 08/06/18 07/21/19 History sertraline [Zoloft] 50 mg PO HS 08/06/18 07/21/19 History loperamide 2 mg PO Q4 PRN 12/14/18 07/21/19 History fludrocortisone 0.1 mg PO QAM 03/09/19 07/21/19 History acetaminophen 650 mg PO Q4H PRN MDD 3G 06/30/19 07/21/19 History cyanocobalamin (vitamin B-12) 1,000 mcg PO QAM 06/30/19 07/21/19 History [Vitamin B-12] food supplemt, lactose-reduced 1 ea PO TID 06/30/19 07/21/19 History [Ensure] potassium chloride 10 meq PO BID 06/30/19 07/21/19 History psyllium husk (with sugar) 1 wafer PO QAM 06/30/19 07/21/19 History [Metamucil Fiber Thin] Past Med/Surg History Social History Preferred Language: Bengali Communication Ability: Effective Beliefs That Will Affect Care: None Current Living Situation: Personal Care Facility Feels Safe at Home: Yes Smoking Status: Former smoker Hx Alcohol Use: No Hx Substance Use: No Review of Systems Review of Systems: All systems reviewed & are unremarkable except as noted in HPI & below Physical Exam Physical Exam: General: Alert and oriented x 3. NAD HENT: Normocephalic, atraumatic, oral mucosa: moist Neck: Supple, no lymph nodes palpated, no thyromegaly CVS: Normal S1, S2. No murmur, rub or gallop. PMI non displaced. Peripheral pulses normal. Resp: Normal percussion. Normal breath sounds bilaterally. No wheezing or rales heard Abdomen: Soft, non tender, no hepatosplenomegaly. Bowel sounds positive Extremities: No pitting edema Neuro: Power 5/5 throughout, grossly normal sensations, DTR's normal. Pill- rolling tremor of left hand Psychiatry: Normal mood, normal thought process Results & Data Vital Signs (Past 12 Hours) Vital Signs Temp Pulse Resp BP Pulse Ox 07/21/19 17:00 67 7 L 114/56 L 95 07/21/19 16:30 66 15 134/72 97 07/21/19 16:00 70 13 170/86 H 97 07/21/19 15:09 68 13 147/87 H 97 07/21/19 15:00 36.5 C 70 22 147/87 H 97 Laboratory Results Laboratory Results - last 24 hr 07/21/19 07/21/19 07/21/19 16:30 16:30 16:30 WBC 6.54 RBC 4.50 L Hgb 13.0 L Hct 40.5 L MCV 90.0 MCH 28.9 MCHC 32.1 RDW Std Deviation 47.7 H RDW Coeff of Aida 14.6 H Plt Count 171 MPV 9.5 Immature Gran % (Auto) 0.2 Neut % (Auto) 68.2 Lymph % (Auto) 21.4 [place] % (Auto) 8.1 Eos % (Auto) 1.8 Baso % (Auto) 0.3 Immature Gran # (Auto) 0.01 Neut # (Auto) 4.46 Lymph # (Auto) 1.40 [place] # (Auto) 0.53 Eos # (Auto) 0.12 Baso # (Auto) 0.02 PT 11.9 INR 1.2 H APTT 24.5 PTT Ratio 0.9 Sodium 141 Potassium 3.7 Chloride 106 Carbon Dioxide 32 Anion Gap 3.0 BUN 13 Creatinine 0.64 Est Cr Clr Drug Dosing 74.6 Est GFR ( Amer) 101.3 Est GFR (Non-Af Amer) 87.4 BUN/Creatinine Ratio 19.7 Glucose 86 Calcium 8.8 Total Bilirubin 0.6 AST 13 L ALT 9 L Alkaline Phosphatase 110 Troponin I 0.024 Total Protein 6.5 Albumin 3.5 Globulin 3.0 Albumin/Globulin Ratio 1.2 Lipase 144 Urine Color Urine Appearance Urine pH Ur Specific [place] Urine Protein Urine Glucose (UA) Urine Ketones Urine Blood Urine Nitrite Urine Bilirubin Urine Urobilinogen Ur Leukocyte Esterase 02/22/20 17:30 WBC RBC Hgb Hct MCV MCH MCHC RDW Std Deviation RDW Coeff of Aida Plt Count MPV Immature Gran % (Auto) Neut % (Auto) Lymph % (Auto) [place] % (Auto) Eos % (Auto) Baso % (Auto) Immature Gran # (Auto) Neut # (Auto) Lymph # (Auto) [place] # (Auto) Eos # (Auto) Baso # (Auto) PT INR APTT PTT Ratio Sodium Potassium Chloride Carbon Dioxide Anion Gap BUN Creatinine Est Cr Clr Drug Dosing Est GFR ( Amer) Est GFR (Non-Af Amer) BUN/Creatinine Ratio Glucose Calcium Total Bilirubin AST ALT Alkaline Phosphatase Troponin I Total Protein Albumin Globulin Albumin/Globulin Ratio Lipase Urine Color Yellow Urine Appearance Clear Urine pH 7.5 Ur Specific [place] 1.009 Urine Protein Negative Urine Glucose (UA) Negative Urine Ketones Negative Urine Blood Negative Urine Nitrite Negative Urine Bilirubin Negative Urine Urobilinogen Negative Ur Leukocyte Esterase Negative Diagnostic Findings Chest x-ray, personally reviewed did not show anything acute. There is seems to be chronic diaphragm elevation on the right side? Hip x-ray did not show any thing acute.
--- NOTE | 2019-07-21 18:22 | Electrocardiogram Report ---
Test Reason : Blood Pressure : / mmHG Vent. Rate : 068 BPM Atrial Rate : 063 BPM P-R Int : 000 ms QRS Dur : 140 ms QT Int : 458 ms P-R-T Axes : 000 039 030 degrees QTc Int : 487 ms Normal sinus rhythm with 1st degree AV block and possibly blocked PACS Right bundle branch block Abnormal ECG When compared with ECG of 16-JUL-2019 18:44, No significant change was found Confirmed by Alfonzo Aguilar ([id number]) on 07/21/2019 6:22:44 PM Referred By: REFERRED SELF Confirmed By:Beltran Aguilar
[2019-07-21] MEDS ORDERED: ACETAMINOPHEN 325 MG TAB PO PRN ×2 (20:38)
[2019-07-21] MEDS ORDERED: NON-FORMULARY MEDICATION (Food Supplemt, Lactose-Reduced [Ensure] 1 EA) PO SCH (21:00)
[2019-07-21] MEDS: ATORVASTATIN 40 MG TAB PO SCH (21:42)
[2019-07-21] MEDS: BICALUTAMIDE 50 MG TAB PO SCH (21:43)
[2019-07-21] MEDS: SERTRALINE HCL 50 MG TABLET PO SCH (21:44)
[2019-07-21] MEDS: CARBIDOPA/LEVODOPA 25/100MG TAB PO SCH (21:44)
[2019-07-21] MEDS: MYCOPHENOLATE MOFETIL 250 MG CAP PO SCH (21:44)
[2019-07-22] MEDS: MYCOPHENOLATE MOFETIL 250 MG CAP PO SCH (09:09)
[2019-07-22] MEDS: PANTOprazole 40 MG TAB PO SCH (09:10)
[2019-07-22] MEDS: PSYLLIUM 58.6% POWDER PACKET PO SCH (09:10)
[2019-07-22] MEDS: FLUDROCORTISONE ACETATE 0.1 MG TAB PO SCH (09:10)
[2019-07-22] MEDS: CYANOCOBALAMIN 500 MCG TABLET (VITAMIN B-12) PO SCH (09:10)
[2019-07-22] MEDS: CARBIDOPA/LEVODOPA 25/100MG TAB PO SCH ×4 (09:10→20:49)
[2019-07-22] MEDS: CLOPIDOGREL BISULFATE 75 MG TAB PO SCH (09:11)
[2019-07-22] MEDS ORDERED: LACTOBACILLUS ACIDOPHILUS (FLORANEX) TAB PO SCH (12:00)
--- NOTE | 2019-07-22 12:11 | Hospitalist Progress Note ---
Date of Service July 22, 2019 Assessment & Plan (1) Frequent falls: Baseline ambulatory dysfunction/gait disturbance secondary to Parkinson's disease Lives at [facility]: In the [place] Patient has been having recurrent falls -at [facility], he did not have any lightheadedness or dizziness and he did not pass out when he fell. PT OT evaluation (2) Parkinsons: Continue Sinemet (3) Dyslipidemia, goal LDL below 70: Continue statin (4) Prostate cancer: Continue bicalutamide (5) Orthostatic hypotension: Continue fludrocortisone (6) Diarrhea: No episode of loose bowel movement today, stool for C. difficile ordered CODE STATUS: Full code Disposition: PT OT evaluation prior to discharge, social service consult for discharge planning Admission and Anticipated Discharge Date Admission Date: July 21, 2019 Subjective Patient is very hard of hearing, States that he feels well, no complaint of cough, has some pain on left knee/ No complaint of shortness of breath, no fever or chills Review of Systems Review of Systems: All systems reviewed & are unremarkable except as noted in HPI & below Constitutional: no fever and no chills Musculoskeletal: + joint pain (left knee pain) Physical Exam Constitutional: WD/WN, vitals as above + ill appearing; no acute distress Eyes: PERRL, conjunctivae normal, anicteric sclerae ENMT: external ear and nose normal, oropharynx normal Neck: trachea midline, no thyromegaly Respiratory: normal respiratory effort, lungs clear to auscultation Cardiovascular: RRR, no murmur, no edema Gastrointestinal (Abdomen): normal bowel sounds, soft, nontender, no hepatosplenomegaly Musculoskeletal: Healing wound noted on left knee, no active bleeding or drainage noted Neurologic: Baseline dementia, slow to response secondary to history of parkinsonism Psychiatric: Orientation: alert and oriented to person Results & Data ([facility]) Vital Signs (Past 12 Hours) Vital Signs Temp Pulse Resp BP Pulse Ox 07/22/19 06:55 37.2 C 62 18 100/49 L 94
[2019-07-22] MEDS: LACTOBACILLUS ACIDOPHILUS 1 GM PACK PO SCH ×2 (13:16→17:52)
[2019-07-22] MEDS ORDERED: LOPERAMIDE HCL 2 MG CAP PO PRN (13:34)
[2019-07-22] MEDS ORDERED: LACTOBACILLUS ACIDOPHILUS 1 GM PACK PO SCH (17:00)
[2019-07-22 17:03] LABS: Appearance Urine Cloudy (Clear); Bacteria Urine Automated Negative (Negative); Bilirubin Urine Negative (Negative); Blood Urine Negative (Negative); Color Urine Yellow; Epithelial Cell Urine Auto >30 /lpf (0-5); Glucose Urine UA Negative (Negative); Ketones Urine Trace (Negative); Leukocyte Esterase Urine Negative (Negative); Nitrite Urine Negative (Negative); Protein Urine Trace (Negative); RBC Urine Automated 0-4 /hpf (0-4); Specific Gravity Urine 1.027 (1.000-1.030); Urobilinogen Urine Negative (Negative)
[2019-07-22 17:12] LABS: Cast Urine Automated 0 /lpf (0-5); Mucus Urine Present (None Prsent)
[2019-07-22] MEDS: BICALUTAMIDE 50 MG TAB PO SCH (17:53)
[2019-07-22] MEDS: ATORVASTATIN 40 MG TAB PO SCH (20:48)
[2019-07-22] MEDS: SERTRALINE HCL 50 MG TABLET PO SCH (20:49)
[2019-07-23] MEDS: PANTOprazole 40 MG TAB PO SCH (08:44)
[2019-07-23] MEDS: FLUDROCORTISONE ACETATE 0.1 MG TAB PO SCH (08:44)
[2019-07-23] MEDS: PSYLLIUM 58.6% POWDER PACKET PO SCH (08:44)
[2019-07-23] MEDS: CARBIDOPA/LEVODOPA 25/100MG TAB PO SCH ×4 (08:44→20:34)
[2019-07-23] MEDS: CYANOCOBALAMIN 500 MCG TABLET (VITAMIN B-12) PO SCH (08:44)
[2019-07-23] MEDS: LACTOBACILLUS ACIDOPHILUS 1 GM PACK PO SCH ×3 (08:45→17:05)
[2019-07-23] MEDS: CLOPIDOGREL BISULFATE 75 MG TAB PO SCH (08:46)
--- NOTE | 2019-07-23 16:05 | Hospitalist Progress Note ---
Date of Service July 23, 2019 Assessment & Plan (1) Frequent falls: Baseline ambulatory dysfunction/gait disturbance secondary to Parkinson's disease Lives at [facility]: In the [place] Patient has been having recurrent falls -at [facility], No report of dizzy spell lightheadedness prior to fall Continue PT OT (2) Parkinsons: Continue Sinemet (3) Dyslipidemia, goal LDL below 70: Continue statin (4) Prostate cancer: Continue bicalutamide (5) Orthostatic hypotension: Continue fludrocortisone (6) Diarrhea: No episode of loose bowel movement CODE STATUS: Full code Disposition: Plan to return back to [facility] possible tomorrow Admission and Anticipated Discharge Date Admission Date: July 22, 2019 Subjective Take up on chair, baseline dementia, oriented to person only, patient denies of any discomfort, Has been doing well no fever chills, no cough, Tolerating diet well Physical Exam Constitutional: WD/WN, vitals as above + ill appearing; no acute distress Eyes: PERRL, conjunctivae normal, anicteric sclerae ENMT: external ear and nose normal, oropharynx normal Neck: trachea midline, no thyromegaly Respiratory: normal respiratory effort, lungs clear to auscultation Cardiovascular: RRR, no murmur, no edema Gastrointestinal (Abdomen): normal bowel sounds, soft, nontender, no hepatosplenomegaly Musculoskeletal: Extremities: + lower leg abnormality (Left knee superficial wound from recent fall, bandage present) Left Psychiatric: Orientation: alert and oriented to person Results & Data ([facility]) Vital Signs (Past 12 Hours) Vital Signs Temp Pulse Resp BP Pulse Ox 07/23/19 15:10 36.9 C 69 16 129/56 L 98 07/23/19 07:40 36.4 C L 62 16 145/71 H 97
[2019-07-23] MEDS: BICALUTAMIDE 50 MG TAB PO SCH (17:07)
[2019-07-23] MEDS: ATORVASTATIN 40 MG TAB PO SCH (20:33)
[2019-07-23] MEDS: SERTRALINE HCL 50 MG TABLET PO SCH (20:34)
[2019-07-24] MEDS: CARBIDOPA/LEVODOPA 25/100MG TAB PO SCH ×4 (08:42→20:06)
[2019-07-24] MEDS: CLOPIDOGREL BISULFATE 75 MG TAB PO SCH (08:42)
[2019-07-24] MEDS: LACTOBACILLUS ACIDOPHILUS 1 GM PACK PO SCH ×3 (08:42→17:41)
[2019-07-24] MEDS: CYANOCOBALAMIN 500 MCG TABLET (VITAMIN B-12) PO SCH (08:43)
[2019-07-24] MEDS: PANTOprazole 40 MG TAB PO SCH (08:43)
[2019-07-24] MEDS: PSYLLIUM 58.6% POWDER PACKET PO SCH (08:43)
[2019-07-24] MEDS: FLUDROCORTISONE ACETATE 0.1 MG TAB PO SCH (08:44)
[2019-07-24] MEDS: BICALUTAMIDE 50 MG TAB PO SCH (17:43)
--- NOTE | 2019-07-24 19:02 | Hospitalist Progress Note ---
Date of Service July 24, 2019 Assessment & Plan (1) Frequent falls: Baseline ambulatory dysfunction/gait disturbance secondary to Parkinson's disease Lives at [facility]: In the [place] Patient has been having recurrent falls -at [facility], No report of dizzy spell lightheadedness prior to fall PT/OT eval appreciated , recommends SNF pts [facility] POA -thinks pt will not do well with change of environment in skilled rehab -given advanced dementia due to parkinson's disease , unable to follow instructions and high likely [facility] of getting confused , deliroius pt has hx of Prostate CA s/p TURP by Dr Rdz , recent cystoscope showed bladder ca on casodex , given underlying malignancy -over all prognosis remains poor nephew willing for referral to Hospice care plan is to return back to [place] with hospice care BLADDER CA : history of Prostate Ca s/p radical prostatectomy and subsequent radiation therapy. On Casodex Follows with [facility] physician group urology Dr. Rdz hx of Urinary bladder carcinoma/transitional cell CA Last cystoscopy: , noted to have a small papillary tumor in the anterior wall of the bladder/ PSA level wnl noted plan to return back to [facility] with hospice care (2) Parkinsons: Continue Sinemet (3) Dyslipidemia, goal LDL below 70: Continue statin (4) Prostate cancer: Continue bicalutamide (5) Orthostatic hypotension: Continue fludrocortisone (6) Diarrhea: No episode of loose bowel movement CODE STATUS: Full code Disposition: Plan to return back to [facility] with hospice possible tomorrow Admission and Anticipated Discharge Date Admission Date: July 22, 2019 Subjective offers no new complain no fever or chills baseline dementia , oriented to person only no complain of SOB , no cough , no fever or chills denies of any pain or discomfort on left knee Physical Exam Constitutional: WD/WN, vitals as above + ill appearing; no acute distress Eyes: PERRL, conjunctivae normal, anicteric sclerae ENMT: external ear and nose normal, oropharynx normal Neck: trachea midline, no thyromegaly Respiratory: normal respiratory effort, lungs clear to auscultation Cardiovascular: RRR, no murmur, no edema Gastrointestinal (Abdomen): normal bowel sounds, soft, nontender, no hepatosplenomegaly Psychiatric: Orientation: alert and oriented to person Results & Data ([place]) Vital Signs (Past 12 Hours) Vital Signs Temp Pulse Resp BP Pulse Ox 07/24/19 15:14 36.4 C L 59 L 16 127/70 99 07/24/19 07:48 36.5 C 61 16 148/65 H 94
[2019-07-24] MEDS: SERTRALINE HCL 50 MG TABLET PO SCH (20:06)
[2019-07-24] MEDS: ATORVASTATIN 40 MG TAB PO SCH (20:06)
[2019-07-25] MEDS: PANTOprazole 40 MG TAB PO SCH (09:13)
[2019-07-25] MEDS: LACTOBACILLUS ACIDOPHILUS 1 GM PACK PO SCH ×3 (09:13→16:19)
[2019-07-25] MEDS: CLOPIDOGREL BISULFATE 75 MG TAB PO SCH (09:14)
[2019-07-25] MEDS: FLUDROCORTISONE ACETATE 0.1 MG TAB PO SCH (09:14)
[2019-07-25] MEDS: CARBIDOPA/LEVODOPA 25/100MG TAB PO SCH ×3 (09:14→16:21)
[2019-07-25] MEDS: PSYLLIUM 58.6% POWDER PACKET PO SCH (09:14)
[2019-07-25] MEDS: CYANOCOBALAMIN 500 MCG TABLET (VITAMIN B-12) PO SCH (09:15)
--- NOTE | 2019-07-25 15:15 | Discharge Summary ---
Date of Service July 25, 2019 Admission HPI Per Admitting Provider This is an 88-year-old male with history of coronary artery disease status post CABG 1998, MARBIN to SVG 2014, hypertension, dyslipidemia, atrial fibrillation not on anticoagulation, prostate cancer status post radical prostatectomy several years ago and bladder cancer status post fulguration 2018 who was brought to the ER because of a fall. He has been a resident of [facility] for the past 3 years and lived in [facility] for 2 years before that. He also has Parkinson's disease and has been having frequent falls particularly in the past month. Per the ER provider this is his third visit to the ER this month because of fall. The patient stated that he was going to the bathroom and while sitting on the toilet he just missed it and landed on the floor. He was unable to get up and called for help. The staff helped him up and send him to the ER to be evaluated. X-rays and blood work did not show any new or notable abnormality. But because of this frequent falling, he was asked to be admitted to medicine for PT/OT and for possible placement to a facility where he can get more help. The patient denies any fever or chills. He denies any chest pain or shortness of breath. He also denied any abdominal pain but stated that he has been having diarrhea. He stated that the diarrhea has been on and off for the past 3 years. He can have up to 5 or 6 loose stools a day. Speaking with the [facility], they stated that he may have been having diarrhea but up to 1-2 bowel once a day only. He denied any nausea or vomiting and stated that his oral intake has been okay. Regarding the fall he said that sometimes he feels dizzy when he stands up but he uses his walker every time he is walking and today when he fell he was using a walker. He denied any lightheadedness today when he fell. He did not hit his head. Admission Exam Per Admitting Provider General: Alert and oriented x 3. NAD HENT: Normocephalic, atraumatic, oral mucosa: moist Neck: Supple, no lymph nodes palpated, no thyromegaly CVS: Normal S1, S2. No murmur, rub or gallop. PMI non displaced. Peripheral pulses normal. Resp: Normal percussion. Normal breath sounds bilaterally. No wheezing or rales heard Abdomen: Soft, non tender, no hepatosplenomegaly. Bowel sounds positive Extremities: No pitting edema Neuro: Power 5/5 throughout, grossly normal sensations, DTR's normal. Pill- rolling tremor of left hand Psychiatry: Normal mood, normal thought process Principal Diagnosis Transitional cell carcinoma of bladder Prostate Cancer Parkinson's disease recurrent falls physical deconditioning Discharge Exam CONSTITUTIONAL: thin, frail, vitals as above, generally well-appearing EYES: normal conjunctivae, no scleral icterus ENT: MMM NECK: trachea midline, restricted active and passive ROM in all planes of motion especially rotation RESPIRATORY: clear to auscultation bilaterally, no crackles, rales or wheezes, normal respiratory effort CARDIOVASCULAR: regular rate and rhythm, S1 and 2 heard without murmurs, gal lops or rubs, no JVD, no peripheral edema GASTROINTESTINAL: normal bowel sounds, soft, nontender, nondistended MUSCULOSKELETAL: generalized weakness, muscular wasting SKIN: warm and dry NEUROLOGIC: CN 2-12 grossly intact, no sensory deficit, normal cognition, normal speech, no gross focal deficits. PSYCHIATRIC: alert cooperative and oriented Discharge Data Allergies Allergy/AdvReac Type Severity Reaction Status Date / Time morphine AdvReac Unknown Unknown Verified 06/30/19 08:12 Consultations 07/21/19 17:30 ED Decision to Admit Stat Hospital Course (1) Parkinson disease: (2) Transitional cell carcinoma of bladder: (3) Prostate cancer: (4) Frequent falls: (5) Physical decondition[age]-year-old man with history of prostate cancer, active bladder cancer, Parkinson's disease who has a history of recurrent falls. He resides at the [facility] and presented after another fall. Work-up in the ER included a chest x-ray revealing no acute process, a left hip x-ray and pelvic x-ray revealing degenerative change with no acute process, and EKG revealing atrial fibrillation with no evidence of acute ischemic change. The patient is known to have a history of paroxysmal atrial fibrillation in the past. He has contraindications to anticoagulation per prior evaluations by cardiology. As he had 3 ER visits within the last month for frequent falls he was admitted for evaluation for placement. Physical and Occupational Therapy both evaluated him and recommended care home facility. However, his nephew, LEEANNA, was concerned about the change of location inducing delirium and distressing the patient. Therefore, after conversation with the hospitalist, it was decided that he would return to the [facility] hosp[facility]. At time of discharge a prescription for hospice was given to the disability case manager for evaluation and treatment. It is noted that the patient has been in hospice off and on for the past 1.5 years. At time of discharge he was hemodynamically stable and afebrile. He was cachectic appearing and physically deconditioned. He was reportedly tolerating p.o. and mentating clearly. He was discharged in stable but guarded condition with his known history of active cancer. Close primary care follow-up is recommended. Total Time Total Time Spent Total Time Spent (In Minutes): 60 Total Time Includes: Examination of the Patient, Discharge Planning, Medication Reconciliation and Communication With Other Providers Discharge Plan Discharge Items Patient Disposition: Personal Intermediate Reason For Visit: FALL Discharge Diagnosis: Transitional cell carcinoma of bladder Prostate Cancer Parkinson's disease recurrent falls physical deconditioning Condition on Discharge: Fair Activity: As commented below Activity Comment: per staff at receiving facility Non-emergency contact: Primary Care Provider Call non-emergency contact if: you have any medication questions, your symptoms worsen, your pain is not controlled, your pain is worsening, your pain is unusual for you, your pain is concerning for you and you have a fever Follow-up/Referrals: STEVEN, [Primary Care Provider] - Diet: Regular Addtl Attending Provider Instructions: Please take all medications as instructed on discharge list below. It is recommended that you follow-up with your primary care provider within one week of discharge to ensure you are doing well. Hospice has been ordered to evaluate you for reconsideration. You should expect someone to contact you from the Hospice agency you chose. It was a pleasure taking care of you! Please call if you have any questions or problems. You can reach a [facility] hospitalist on duty at [facility] 24 hours a day by calling [phone]. Take care of yourself. Trupti Chopra, DO [facility] Hospitalist Pending Studies at Discharge: No Stand-Alone Forms: My [facility] [employer], Smoking Cessation Skilled Items Patient informed of condition?: Yes DNR: No Discharge Level of Care: Other Communicable Disease: No Discharge Prognosis: Stable Lines: None Urinary Catheter: No Medications and DC Order Prescriptions: Continued atorvastatin [Lipitor] 40 mg Tablet 40 mg PO HS RF: 0 bicalutamide 50 mg Tablet 50 mg PO DAILY@1700 RF: 0 alendronate [Fosamax] 70 mg Tablet 70 mg PO REYNAGA RF: 0 melatonin 3 mg Tablet 3 mg PO HS RF: 0 clopidogrel [Plavix] 75 mg Tablet 75 mg PO QAM RF: 0 mycophenolate mofetil 500 mg Tablet 1,000 mg PO Q12H RF: 0 nitroglycerin [Nitrostat] 0.4 mg Tablet, Sublingual 0.4 mg Sublingual DIRECTED PRN (Reason: Chest Pain) RF: 0 docusate sodium [Colace] 100 mg Capsule 100 mg PO BID PRN (Reason: Constipation) RF: 0 omeprazole 20 mg Capsule,Delayed Release(Dr/Ec) 20 mg PO QAM RF: 0 carbidopa-levodopa [Sinemet] 25-100 mg Tablet 1 tab PO QID RF: 0 sertraline [Zoloft] 50 mg Tablet 50 mg PO HS RF: 0 Artificial Tears (PF) Dropperette 1 drp OPB QID RF: 0 Florastor 250 mg Capsule 250 mg PO BID RF: 0 PreserVision AREDS-2 [id number] Capsule 1 tab PO BID RF: 0 loperamide 2 mg Capsule 2 mg PO Q4 PRN (Reason: Diarrhea) RF: 0 acetaminophen 325 mg Tablet 650 mg PO Q4H MDD 3G PRN (Reason: Pain) RF: 0 cyanocobalamin (vitamin B-12) [Vitamin B-12] 1,000 mcg Tablet 1,000 mcg PO QAM RF: 0 Ensure Liquid 1 ea PO TID RF: 0 potassium chloride 10 mEq tablet,ER particles/crystals 10 meq PO BID RF: 0 Metamucil Fiber Thin 2 gram Wafer 1 wafer PO QAM RF: 0 fludrocortisone 0.1 mg tablet 0.1 mg PO QAM RF: 0 Discharge Orders: Discharge Order (Routine); Ordered 07/25/19 Ordered By: Trupti Chopra Admission Data Admit Date/Time: 07/22/19 13:20 Attending Provider: Trupti Chopra Admit Provider: Brian Aguilar Primary Care Provider: Kaci HARRIS Providers: Brian Aguilar
[2019-07-25] MEDS: BICALUTAMIDE 50 MG TAB PO SCH (16:20)
== END 2019-07-25 18:03 | disposition hospice, home (50) | DRG 93 ==
LOC: 3N 15:00 → ED 15:00 → SUATTDRO 18:08 → 3N 20:00 → SUATTDRO 07-22 13:20